=== PATIENT | female | born 1960 | race Caucasian/White ===

== ENCOUNTER 2017-04-30 23:01 | Emergency (ER) | payer SELFPAY ==
[2017-05-01] MEDS ORDERED: hydrOXYzine 25 MG TAB ONE (01:01)
== END 2017-05-01 01:08 | disposition home or self-care (01) ==
LOC: ERS 23:01
DX: F41.9 Anxiety disorder, unspecified (principal); F17.210 Nicotine dependence, cigarettes, uncomplicated; Z71.6 Tobacco abuse counseling
CPT/HCPCS: 99406

== ENCOUNTER 2020-02-18 16:27 | Inpatient (IN) | payer SELFPAY ==
[~2020-02-18 16:27] MED LIST: Iopamidol-370 76% 500 ML 1 ML ONE
[2020-02-18] MEDS ORDERED: Ondansetron PF 4 MG/2 ML Vial ONE (18:24)
[2020-02-18] MEDS ORDERED: Morphine 4 MG/ML VIAL ONE (18:24)
[2020-02-18 18:26] LABS: Hemoglobin 7.2 g/dL (12.0-16.0); Mean Corpuscular HGB CONC 28.3 g/dL (32.0-36.0); Mean Corpuscular Hemoglobin 17.7 pg (27.0-31.0); Mean Corpuscular Volume 62.7 fL (78.0-98.0); Mean Platelet Volume 6.3 fL (7.4-10.4); Platelet Count 388 thou/uL (130-400); RBC Distribution Width 18.9 % (11.5-14.5); Red Blood Cell (RBC) Count 4.07 mill/uL (4.20-5.40); White Blood Cell (WBC) Count 31.2 thou/uL (4.8-10.8)
[2020-02-18 18:40] LABS: Lactic Acid 2.4 mmol/L (0.5-2.2)
[2020-02-18 18:44] LABS: Anisocytosis SLIGHT = 6-15 cells (100X) (0-5/hpf); Band 22 % (5-11); Elliptocytes SLIGHT = 2-5 cells (100X) (0-1/hpf); Eosinophils 1 % (0-10); Hypochromia MODERATE=16-30 cells (100X) (0-5/hpf); Lymphocytes 4 % (21-51); MDiff Complete? YES; Metamyelocyte 2 % (0-0); Microcytosis SLIGHT = 6-15 cells (100X) (0-5/hpf); Monocytes 2 % (0-10); Neutrophil 69 % (42-75); Ovalocytes SLIGHT = 2-5 cells (100X) (0-1/hpf); Platelet Morphology Comment Appears Adequate; Poikilocytosis SLIGHT = 6-15 cells (100X) (0-5/hpf); Polychromasia SLIGHT = 2-3 cells (100X) (0-2/hpf); Reflex for Review?? YES; Schistocytes SLIGHT = 2-5 cells (100X) (0-1/hpf)
[2020-02-18 18:45] LABS: ALT (SGPT) 7 U/L (8-55); AST (SGOT) 11 U/L (5-34); Albumin 2.8 g/dL (3.4-4.8); Alkaline Phosphatase 200 U/L (40-110); Anion Gap 14 mmol/L (10-20); BUN (Urea Nitrogen) 9 mg/dL (9.8-20.1); Calc. Creatinine Clearance 0 mL/min (70-130); Calcium 8.4 mg/dL (7.8-10.44); Carbon Dioxide 25 mmol/L (23-31); Chloride 98 mmol/L (98-107); Estimated GFR-MDRD 51; Globulin 3.8 g/dL (2.4-3.5); Glucose 121 mg/dL (80-115); Protein, Total 6.6 g/dL (6.0-8.3); Sodium 134 mmol/L (136-145)
[2020-02-18 18:52] LABS: Potassium 2.9 mmol/L (3.5-5.1)
[2020-02-18] MEDS ORDERED: Piperacillin/Tazobactam 4.5 GM VIAL ONE (18:54)
--- NOTE | 2020-02-18 19:30 | CT ---
CT Abdomen Pelvis W Con: 02/18/2020 7:08 PM CLINICAL INFORMATION: Right inguinal pain and swelling with possible abscess COMPARISON: None. TECHNIQUE: Multiple contiguous axial images were obtained and a CT of the abdomen and pelvis with IV contrast. C oronal and sagittal reformats were performed. FINDINGS: Lower Chest: within normal limits. Abdomen: Liver: within normal limits. Bile Ducts: Normal caliber. Gallbladder: Calcified gallstone in the deep dependent gallbladder. Pancreas: within normal limits. Spleen: within normal limits. Adrenals: within normal limits. Kidneys: within normal limits. Pelvis: Reproductive Organs: A calcified uterine fibroid. Calcification is also seen in the left ovary. Ureters: within normal limits. Bladder: within normal limits. Peritoneum: No ascites or free air, no fluid collection. Bowel: Scattered diverticula in the colon. There is significant irregularity and increased soft tissu e density in the perianal soft tissues. This soft tissue density measures 12.2 cm in greatest dimension. Mesentery and Retroperitoneum: No enlarged retroperitoneal or mesenteric lymph nodes. There is an enl arged lymph node along the right pelvic sidewall measuring 2.0 cm in size. Vessels: Atherosclerotic calcifications. Abdominal Wall: There is stranding change seen in the lower abdominal wall extending into the right i nguinal region. There are mildly enlarged bilateral inguinal lymph nodes measuring up to 1.9 cm in size. No drainable well-circumscribed fluid collection is seen. Bones: Degenerative changes in the spine. IMPRESSION: 1. Increased soft tissue density in the perianal region is concerning for an anal malignancy. Correla te with physical examination. 2. Inflammatory change in the lower abdominal wall and right inguinal region without drainable fluid collection. 3. Cholelithiasis 4. Uterine fibroid 5. Right pelvic sidewall lymphadenopathy 6. Diverticulosis
[2020-02-18] MEDS ORDERED: Potassium Chloride 20 MEQ TAB ONE (20:02)
[2020-02-18 20:10] LABS: Bacteria/HPF 4+ HPF (None Seen); Bilirubin Negative (Negative); Blood, Urine 3+ (Negative); Clarity Extra Turbid (Clear); Glucose, Urine (Dipstick) Normal (Negative); Ketone, Urine Negative (Negative); Leukocyte 500 Leu/uL (Negative); Nitrite Negative (Negative); Protein, Urine (Dipstick) 70 mg/dL (Neg-Trace); RBC/HPF 21-50 HPF (0-3); Renal Epithelial 0-3 HPF (None Seen); Specific Gravity, Urine 1.016 (1.002-1.036); Transitional Epithelial 0-3 HPF (None Seen); Urobilinogen Normal mg/dL (Less than 2); WBC/HPF Greater than 50 HPF (0-3)
[2020-02-18] MEDS ORDERED: Ondansetron ODT 4 MG TAB PO PRN (22:12)
[2020-02-18] MEDS ORDERED: Acetaminophen 650 MG Suppository PR PRN (22:12)
[2020-02-18] MEDS ORDERED: Calcium Carbonate 500 MG ChewTAB PO PRN (22:12)
[2020-02-18] MEDS ORDERED: Acetaminophen 325 MG TAB PO PRN (22:12)
[2020-02-18] MEDS ORDERED: Ondansetron PF 4 MG/2 ML Vial IVP PRN (22:12)
--- NOTE | 2020-02-18 22:22 | PDOC.HHP ---
Hospitalist HPI - History of Present Illness r upper thigh swelling History of Present Illness: Case of an 59y/o female with pmhx of smoker who comes to hospital due to R upper thigh swelling. patient refers she was on her usual state of health until 3-4 days ago when she noted some swelling on her R pubic area. this swelling kept getting bigger and was associated to erythema increase in temp and pain. pain is 10/10 of intensity and non radiating. patient denies any fever chills n/v does report some foul smelling urine w/o dysuria Hospitalist ROS - Review of Systems All other systems reviewed; all pertinent +/- noted in HPI/Subj Hospitalist History - Past Surgical History Past Surgical History: reports: Tonsillectomy - Family History Family History: reports: cancer, diabetes mellitus, hyperlipidemia, hypertension - Social History Smoking Status: Current every day smoker Alcohol: reports: None Drugs: reports: none Living Situation: With Family - Exam General Appearance: NAD, awake alert Eye: PERRL, anicteric sclera ENT: normocephalic atraumatic, no oropharyngeal lesions, moist mucosa Neck: supple, symmetric, no JVD, no thyromegaly Heart: RRR, no murmur, no gallops, no rubs, normal peripheral pulses Respiratory: CTAB, no wheezes, no rales, no ronchi Gastrointestinal: soft, non-distended, normal bowel sounds, no palpable masses, no hepatomegaly Gastrointestinal - other findings: R pubic area w erythema increase in temp and tender to palpation Extremities: no cyanosis, no clubbing, no edema Skin: normal turgor, no lesions, no rashes Neurological: cranial nerve grossly intact, normal sensation to touch, no weakness Musculoskeletal: normal tone, normal strength, no muscle wasting Psychiatric: normal affect, normal behavior, A&O x 3 Hospitalist Results - Labs Result Diagrams: 02/18/20 18:01 02/18/20 18:01 Lab results: WBC 31.2 thou/uL (4.8-10.8) H 02/18/20 18: Hgb 7.2 g/dL (12.0-16.0) L 02/18/20 18: Hct 25.5 % (36.0-47.0) L 02/18/20 18: MCV 62.7 fL (78.0-98.0) L 02/18/20 18:01 Plt Count 388 thou/uL (130-400) 02/18/20 18:01 Band Neuts % (Manual) 22 % (5-11) H 02/18/20 18:01 Sodium 134 mmol/L (136-145) L 02/18/20 18:01 Potassium 2.9 mmol/L (3.5-5.1) L* 02/18/20 18: Chloride 98 mmol/L (98-107) 02/18/20 18:01 Carbon Dioxide 25 mmol/L (23-31) 02/18/20 18:01 BUN 9 mg/dL (9.8-20.1) L 02/18/20 18:01 Creatinine 1.09 mg/dL (0.6-1.1) 02/18/20 18:01 Glucose 121 mg/dL (80-115) H 02/18/20 18:01 Lactic Acid 2.4 mmol/L (0.5-2.2) H 02/18/20 18: Calcium 8.4 mg/dL (7.8-10.44) 02/18/20 18:01 Total Bilirubin 1.0 mg/dL (0.2-1.2) 02/18/20 18:01 AST 11 U/L (5-34) 02/18/20 18:01 ALT 7 U/L (8-55) L 02/18/20 18:01 Alkaline Phosphatase 200 U/L (40-110) H 02/18/20 18:01 Serum Total Protein 6.6 g/dL (6.0-8.3) 02/18/20 18: Albumin 2.8 g/dL (3.4-4.8) L 02/18/20 18:01 Urine Ketones Negative mg/dL (Negative) 02/18/20 19:50 Urine Blood 3+ (Negative) A 02/18/20 19:50 Urine Nitrite Negative (Negative) 02/18/20 19:50 Ur Leukocyte Esterase 500 Kamala/uL (Negative) A 02/18/20 19:50 Urine RBC 21-50 HPF (0-3) A 02/18/20 19:50 Urine WBC Greater than 50 HPF (0-3) A 02/18/20 19:50 Ur Squamous Epith Cells 4-6 HPF (0-3) A 02/18/20 19:50 Urine Bacteria 4+ HPF (None Seen) A 02/18/20 19:50 Hospitalist H&P A/P - Problem (1) Sepsis Code(s): A41.9 - SEPSIS, UNSPECIFIED ORGANISM Status: Acute (2) Cellulitis Code(s): L03.90 - CELLULITIS, UNSPECIFIED Status: Acute (3) Rectal mass Code(s): K62.89 - OTHER SPECIFIED DISEASES OF ANUS AND RECTUM Status: Acute (4) Hypokalemia Code(s): E87.6 - HYPOKALEMIA Status: Acute (5) UTI (urinary tract infection) Status: Acute (6) Smoker Code(s): F17.200 - NICOTINE DEPENDENCE, UNSPECIFIED, UNCOMPLICATED Status: Acute (7) Anemia Code(s): D64.9 - ANEMIA, UNSPECIFIED Status: Acute - Plan Plan: Case of an 59y/o female with the stated pmhx who presents with sepsis secondary to cellulitis and uti, with an incidental mass in rectal area sepsis secondary to uti / cellulitis - elevated wbc 30k, elevated LA 2.8 with a soft tissue swelling in upper thigh and u/a consistent with uti - sepsis bundles started at the ed, ivfs given, cultures taken and broad abx initiated - will continue with ancef, no purulent secretions noted. should covered both cellulits and uti - f/u cultures - f/u LA rectal mass - visual mass at rectum + abd ct suspicious for malignancy - oncology consulted - gen surgeon consulted hypokalemia - replace - check mg smoker - advised to quit - nicotine patch offered, pt refused anemia - hg 7.2 with decreased mcv - will check iron panel - likely related to rectal mass - fecal occult blood - start iron replacement if confirmed - transfuse if below 7
[2020-02-18] MEDS: Sodium Chloride 0.9% 1,000 ML IV SCH (23:50)
[2020-02-19 00:23] VITALS: BMI 35.1
[2020-02-19] MEDS: HYDROcodone/Acetaminophen 5/325 mg Tablet PO PRN ×2 (05:19→15:10)
[2020-02-19 07:39] LABS: Iron 9 ug/dL (50-170); Iron Binding Capacity, Total 235 mcg/dL (265-497)
[2020-02-19 07:41] LABS: ALT (SGPT) 7 U/L (8-55); AST (SGOT) 8 U/L (5-34); Albumin 2.2 g/dL (3.4-4.8); Alkaline Phosphatase 160 U/L (40-110); Anion Gap 12 mmol/L (10-20); BUN (Urea Nitrogen) 9 mg/dL (9.8-20.1); Bilirubin, Total 0.5 mg/dL (0.2-1.2); Calc. Creatinine Clearance 106 mL/min (70-130); Calcium 7.6 mg/dL (7.8-10.44); Carbon Dioxide 24 mmol/L (23-31); Chloride 105 mmol/L (98-107); Estimated GFR-MDRD 62; Glucose 112 mg/dL (80-115); Iron 9 ug/dL (50-170); Iron Binding Capacity, Total 238 mcg/dL (265-497); Potassium 3.2 mmol/L (3.5-5.1); Protein, Total 5.2 g/dL (6.0-8.3); Sodium 138 mmol/L (136-145)
[2020-02-19 07:50] LABS: Mean Corpuscular HGB CONC 28.4 g/dL (32.0-36.0); Mean Corpuscular Hemoglobin 18.4 pg (27.0-31.0); Mean Corpuscular Volume 64.7 fL (78.0-98.0); Mean Platelet Volume 10.8 fL (7.4-10.4); Platelet Count 312 thou/uL (130-400); RBC Distribution Width 18.6 % (11.5-14.5); Red Blood Cell (RBC) Count 3.23 mill/uL (4.20-5.40); White Blood Cell (WBC) Count 20.5 thou/uL (4.8-10.8)
[2020-02-19] MEDS: ceFAZolin 1 GM/D5W 1 GM in Premix Bag 1 BAG IVPB SCH ×4 (08:37→23:31)
[2020-02-19 08:59] LABS: Anisocytosis SLIGHT = 6-15 cells (100X) (0-5/hpf); Band 3 % (5-11); Elliptocytes SLIGHT = 2-5 cells (100X) (0-1/hpf); Hypochromia MODERATE=16-30 cells (100X) (0-5/hpf); Large Platelets SLIGHT; Lymphocytes 4 % (21-51); MDiff Complete? YES; Neutrophil 93 % (42-75); Platelet Morphology Comment Appears Adequate
[2020-02-19] MEDS ORDERED: Enoxaparin Sodium 40 MG/0.4 ML SYRINGE SC SCH (09:00)
--- NOTE | 2020-02-19 09:20 | CON ---
DATE OF CONSULTATION: 02/19/2020 CHIEF COMPLAINT: Anal mass. HISTORY OF PRESENT ILLNESS: This is a 59-year-old female with a history of chronic pain in her backside with open wound. She states this has been going on for months. She has occasional bleeding. She has difficulty passing her stools. She does stool softeners and that helps. She presents now with swelling and pain to the right groin and was found to have cellulitis. CT scan reveals anal mass and phlegmon type changes in the right groin without drainable abscess. The patient is unsure if she has had previous colonoscopy. PAST MEDICAL HISTORY: She denies. PAST SURGICAL HISTORY: Tonsillectomy. MEDICINES: None. ALLERGIES: NO KNOWN DRUG ALLERGIES. SOCIAL HISTORY: She smokes. No alcohol or other drugs. REVIEW OF SYSTEMS: Ten-system review of systems is otherwise negative unless described above. PHYSICAL EXAMINATION: VITAL SIGNS: Blood pressure 100/64, pulse 87, respirations 18, she is afebrile. CHEST: Clear. HEART: Regular rate. ABDOMEN: Soft. EXTREMITIES: There is swelling and tenderness in the right groin. There is some erythema of the scan. There is no fluctuance. Left groin within normal limits. : Examination of her perineum reveals large ulceration circumferential around the anus and around the labia majora, however, seems to be coming from the anal area. Anorectal exam is not done due to severe pain. 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 She does have bilateral lymphadenopathy. This has been present for a while and she has been trying to live with this. PLAN: She will almost certainly need biopsy to confirm and then [facility] for her chemo and radiation. We will discuss with GI. She would need a colonoscopy as well to clear her rectum and the rest of her colon. Biopsy could be performed at the same time stat. If she does in fact have a more complete obstruction, she could have diverting loop colostomy palliatively to allow for her chemoradiation to be performed with less symptoms. Job ID: [id number]
[2020-02-19] MEDS: Sodium Chloride 0.9% 1,000 ML IV SCH ×2 (15:09)
--- NOTE | 2020-02-19 19:06 | PDOC.HOSPP ---
- Subjective Encounter Date: 02/19/20 Encounter Time: 18:55 Subjective: f/u for sepsis/rectal mass with cellulitis/UTI with strep spp receiving Ancef currently. Nursing reports Hgb 6.0 this am. Awaiting final COVID results currently. - Objective Vital Signs & Weight: Vital Signs (12 hours) Temp Pulse Resp BP BP Pulse Ox 02/19/20 16:00 98.3 F 91 18 95/59 L 94 L 02/19/20 12:00 98.0 F 96 18 100/65 93 L 02/19/20 11:21 98.0 F 96 18 100/65 93 L 02/19/20 07:56 98.4 F 87 18 100/64 93 L Weight Weight 231 lb I&O: 02/18/20 02/19/20 02/20/20 06:59 06:59 06:59 Intake Total 490 1510 Balance 490 1510 Result Diagrams: 02/19/20 06:43 02/19/20 06:43 Additional Labs: Microbiology 02/18/20 19:50 Urine voided Urine Culture - Preliminary Beta-hemolytic strep group A 02/18/20 18:05 Venous blood - Right Arm Blood Culture - Preliminary Specimen has been received and culture in progress. No Growth to date. 02/18/20 18:01 Venous blood - Left Arm Blood Culture - Preliminary Specimen has been received and culture in progress. No Growth to date. Laboratory Tests 02/18/20 02/18/20 02/18/20 18:01 18:01 18:01 WBC 31.2 H Hgb 7.2 L MCV 62.7 L Band Neuts % (Manual) 22 H Potassium 2.9 L* Lactic Acid 2.4 H Magnesium Iron TIBC 02/19/20 02/19/20 06:43 06:43 WBC Hgb MCV Band Neuts % (Manual) 3 L Potassium Lactic Acid Magnesium 2.0 Iron 9 L TIBC 238 L Radiology Reviewed by me: Yes (CT abd/pel - R pelvic/inguinal inflammatory changes/adenopathy) Hospitalist ROS - Medication Medications: Active Medications Generic Name Dose Route Start Last Admin Trade Name Freq PRN Reason Stop Dose Admin Hydrocodone Bitart/Acetaminophen 1 tab 02/18/20 22:12 02/19/20 15:10 Hydrocodone/Acetaminophen 5/325 Mg Tablet PO 1 tab Q4H PRN Administration Moderate Pain (4-6) Sodium Chloride 1,000 mls @ 70 mls/hr 02/18/20 22:15 02/19/20 15:09 Normal Saline 0.9% IV 1,000 mls .[id number] DOMINIQUE Administration Cefazolin Sodium/Dextrose 1 gm 50 mls @ 100 mls/hr 02/18/20 23:59 02/19/20 17:12 / Device IVPB 50 mls 0800,1600,2359 DOMINIQUE Administration - Exam General Appearance: NAD, awake alert Eye: PERRL, anicteric sclera ENT: normocephalic atraumatic, no oropharyngeal lesions Neck: supple, symmetric, no JVD, no thyromegaly Heart: RRR, no gallops, no rubs, normal peripheral pulses Heart - other findings: S1, S2 Respiratory: no rales, no ronchi, no tachypnea, wheezes Gastrointestinal: soft, non-tender, non-distended, normal bowel sounds, no hepatomegaly Extremities: no cyanosis, no clubbing Skin - other findings: large ulcerating mass in rectum/buttocks with erythema Neurological: cranial nerve grossly intact, no new deficit Musculoskeletal: normal tone, generalized weakness Psychiatric: normal affect, A&O x 3 Hosp A/P (1) Sepsis Code(s): A41.9 - SEPSIS, UNSPECIFIED ORGANISM Status: Acute Plan: Secondary to large ulcerated rectal mass/cellulitis/UTI, continue Ancef, IVF's (2) Rectal mass Code(s): K62.89 - OTHER SPECIFIED DISEASES OF ANUS AND RECTUM Status: Acute Plan: Suspicion for malignancy, await bx, Gen surgery/Medical oncology assistance appreciated (3) UTI (urinary tract infection) Status: Acute Plan: Strep spp isolated, await final ID, continue Ancef, IVF's (4) Tobacco abuse Code(s): Z72.0 - TOBACCO USE Status: Chronic Plan: Smoking cessation resources (5) Anemia Code(s): D64.9 - ANEMIA, UNSPECIFIED Status: Chronic Plan: Suspect due to chronic disease/malignancy and component of iron-deficiency, transfuse 1u PRBC's today, IV Iron transfusion today, serial H/H (6) Hypokalemia Code(s): E87.6 - HYPOKALEMIA Status: Acute Plan: KCL supplementation, serial K+ monitoring - Plan continue antibiotics, 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
[2020-02-19] MEDS ORDERED: Iron, Sodium Ferric Gluconate 250 MG in Sodium Chloride 0.9% 100 ML IVPB SCH (20:00)
[2020-02-19 20:50] LABS: SARS-CoV-2 MS2 Positive; SARS-CoV-2 N Gene Negative; SARS-CoV-2 S Gene Negative; SARS-CoV-2 by NAA Not Detected (NotDetected); SARS-CoV-2 orf1ab Negative
[2020-02-20] MEDS: Sodium Chloride 0.9% 1,000 ML IV SCH ×3 (03:57→17:28)
--- NOTE | 2020-02-20 04:40 | CON ---
DATE OF CONSULTATION: HISTORY OF PRESENT ILLNESS: This is a 59-year-old female, who apparently has been having problem in the anal area for about two years. It has been gradually becoming worse and now she has developed pain and swelling in the right upper thigh, both inguinal areas, and suprapubic abdominal wall. She rates her pain as level 10. The patient lives by herself. CURRENT MEDICATIONS: Cefazolin, Zofran, and Carbon. PERSONAL, FAMILY, AND SOCIAL HISTORY: The patient is not aware of any cancer history in the family. She lives by herself. She has children, but they do not live with her. REVIEW OF SYSTEMS: As above. PHYSICAL EXAMINATION: GENERAL: The patient appears chronically ill. She is moderately obese at 231 pounds, height 5 feet 8 inches, body surface area 2.24 m2, and BMI 35.1 kg/m2. HEENT: Unremarkable. There was no adenopathy in cervical area. Inguinal area could not be examined because of extreme tenderness. CHEST: Clear to percussion and auscultation. HEART: S1, S2. ABDOMEN: Soft. No obvious hepatosplenomegaly. EXTREMITIES: Without pedal edema. There is considerable swelling and tenderness to the right inguinal area and erythema in both inguinal areas and suprapubic abdominal wall. Examination of anorectal area and perineum shows a very large ulcerated area around the anus and labia majora. LABORATORY DATA: CBC showed WBC 20,500, hemoglobin 6 g, platelet count 312,000, and MCV 64.7. Differential shows 93% neutrophils, 3% bands, and 4% lymphocytes. Chemistry profile shows hypokalemia. Her creatinine is 0.92, calcium 7.6, serum iron 9 with TIBC of 238, ferritin pending. ALT and AST are normal. Alkaline phosphatase is elevated at 160 with albumin 2.2. IMAGING DATA: CT scan of abdomen and pelvis showed normal liver and spleen. Kidneys and ureters are normal. There is a significant irregularity and increased soft tissue density in the perianal area measuring 12.2 cm. There is a 2 cm lymph node in the right pelvic sidewall and mildly enlarged bilateral inguinal lymph nodes measuring up to 1.9 cm. There are stranding changes in the lower abdominal wall. ASSESSMENT AND RECOMMENDATION: This patient seems to have a locally advanced anorectal malignancy with likely metastasis to pelvic lymph node and to bilateral inguinal lymph nodes. However, the inguinal lymph nodes, which on CT scan measured 1.9 cm, could also be inflammatory in nature. She does have extremely locally advanced disease. The patient was earlier seen by Dr. Coello, who has recommended a colonoscopy and he felt a biopsy could be done at the time of colonoscopy. I have ordered chest x-ray and bone scan to complete staging. Bone scan was ordered because her alkaline phosphatase is elevated. She needs to be transfused as her hemoglobin is extremely low. Thanks very much for allowing me to participate in this patient's care. She will be followed by Medical Oncology Service. Job ID: [id number]
[2020-02-20] MEDS: HYDROcodone/Acetaminophen 5/325 mg Tablet PO PRN ×3 (06:13→22:27)
[2020-02-20 06:24] LABS: #Eosinphils 0.3 thou/uL (0.0-0.7); #Lymphocytes 1.4 thou/uL (1.20-3.40); #Monocytes 0.8 thou/uL (0.11-0.59); #Neutrophils 15.2 thou/uL (1.40-6.50); %Basophils 0.2 % (0.0-1.0); %Eosinophils 1.7 % (0.0-10.0); %Lymphocytes 7.9 % (21.0-51.0); %Monocytes 4.6 % (0.0-10.0); %Neutrophils 85.7 % (42.0-75.0); Hemoglobin 6.7 g/dL (12.0-16.0); Mean Corpuscular HGB CONC 29.2 g/dL (32.0-36.0); Mean Corpuscular Hemoglobin 19.6 pg (27.0-31.0); Mean Corpuscular Volume 67.2 fL (78.0-98.0); Mean Platelet Volume 10.4 fL (7.4-10.4); Platelet Count 320 thou/uL (130-400); Red Blood Cell (RBC) Count 3.43 mill/uL (4.20-5.40); White Blood Cell (WBC) Count 17.7 thou/uL (4.8-10.8)
[2020-02-20 06:42] LABS: ALT (SGPT) 9 U/L (8-55); AST (SGOT) 13 U/L (5-34); Albumin 2.3 g/dL (3.4-4.8); Alkaline Phosphatase 174 U/L (40-110); Anion Gap 11 mmol/L (10-20); BUN (Urea Nitrogen) 7 mg/dL (9.8-20.1); Bilirubin, Total 0.8 mg/dL (0.2-1.2); Calc. Creatinine Clearance 115 mL/min (70-130); Calcium 7.7 mg/dL (7.8-10.44); Carbon Dioxide 25 mmol/L (23-31); Chloride 105 mmol/L (98-107); Estimated GFR-MDRD 68; Glucose 105 mg/dL (80-115); Protein, Total 5.3 g/dL (6.0-8.3); Sodium 138 mmol/L (136-145)
--- NOTE | 2020-02-20 08:01 | PRG ---
DATE OF SERVICE: 02/20/2020 SUBJECTIVE: Ms. Drew has no complaints this morning. Still complaining of perianal pain. She is afebrile. Vital signs are stable. Appreciate Dr. Burns consultation. ASSESSMENT: Anorectal malignancy. I suspect anal squamous cell. PLAN: Exam under anesthesia tomorrow with biopsy. Job ID: [id number]
[2020-02-20] MEDS: ceFAZolin 1 GM/D5W 1 GM in Premix Bag 1 BAG IVPB SCH ×3 (08:35→23:01)
--- NOTE | 2020-02-20 10:12 | RAD ---
EXAM: Chest PA and lateral: HISTORY: Shortness of breath COMPARISON: 12/12/2009 FINDINGS: Heart: Normal cardiac silhouette Aorta: Unremarkable Pulmonary vessels: Normal Costophrenic angles: Costophrenic angles are clear. Lungs: Scattered interstitial opacities. Pneumothorax: No pneumothorax Osseous structures: Old posterior right rib fracture. IMPRESSION: Scattered interstitial opacities possibly due to edema or infiltrate. Continued surveillance is recom mended.
--- NOTE | 2020-02-20 13:19 | PDOC.HOSPP ---
- Subjective Encounter Date: 02/20/20 Encounter Time: 13:15 Subjective: f/u for rectal mass suspected malignant with associated cellulitis/inflammatory changes receiving Cefazolin. Also s/p 2u PRBC's and IV Iron infusion. - Objective Vital Signs & Weight: Vital Signs (12 hours) Temp Pulse Pulse Resp BP BP Pulse Ox 02/20/20 10:48 98 F 77 14 102/65 94 L 02/20/20 08:00 98.0 F 83 16 114/72 96 02/20/20 03:00 98.2 F 86 18 108/60 96 Weight Weight 231 lb I&O: 02/19/20 02/20/20 02/21/20 06:59 06:59 06:59 Intake Total 490 1860 0 Balance 490 1860 0 Result Diagrams: 02/20/20 05:37 02/20/20 05:37 Additional Labs: Microbiology 02/18/20 19:50 Urine voided Urine Culture - Preliminary Beta-hemolytic strep group A 02/18/20 18:05 Venous blood - Right Arm Blood Culture - Preliminary Specimen has been received and culture in progress. No Growth to date. 02/18/20 18:01 Venous blood - Left Arm Blood Culture - Preliminary Specimen has been received and culture in progress. No Growth to date. Laboratory Tests 02/18/20 02/18/20 02/18/20 18:01 18:01 18:01 WBC 31.2 H Hgb 7.2 L MCV 62.7 L Band Neuts % (Manual) 22 H Potassium 2.9 L* Lactic Acid 2.4 H Magnesium Iron TIBC Carcinoembryonic Ag SARS-CoV-2 (PCR) 02/18/20 02/19/20 02/19/20 23:05 06:43 06:43 WBC 20.5 H Hgb 6.0 L MCV Band Neuts % (Manual) 3 L Potassium 3.2 L Lactic Acid Magnesium 2.0 Iron 9 L TIBC 238 L Carcinoembryonic Ag SARS-CoV-2 (PCR) Not Detected 02/20/20 05:37 WBC Hgb MCV Band Neuts % (Manual) Potassium Lactic Acid Magnesium Iron TIBC Carcinoembryonic Ag 14.94 H SARS-CoV-2 (PCR) Radiology Reviewed by me: Yes (PCXR - scattered infiltrates/chronic changes) Hospitalist ROS - Medication Medications: Active Medications Generic Name Dose Route Start Last Admin Trade Name Freq PRN Reason Stop Dose Admin Acetaminophen 650 mg 02/18/20 22:12 02/19/20 19:39 Acetaminophen 325 Mg Tab PO 650 mg Q4H PRN Administration Headache/Fever/Mild Pain (1-3) Hydrocodone Bitart/Acetaminophen 1 tab 02/18/20 22:12 02/20/20 06:13 Hydrocodone/Acetaminophen 5/325 Mg Tablet PO 1 tab Q4H PRN Administration Moderate Pain (4-6) Sodium Chloride 1,000 mls @ 70 mls/hr 02/18/20 22:15 02/20/20 03:57 Normal Saline 0.9% IV Not Given .[id number] DOMINIQUE Cefazolin Sodium/Dextrose 1 gm 50 mls @ 100 mls/hr 02/18/20 23:59 02/20/20 08:35 / Device IVPB 50 mls 0800,1600,2359 DOMINIQUE Administration Sodium Chloride 10 ml 02/19/20 21:00 02/20/20 08:35 Flush - Normal Saline 10 Ml Syringe IVF Not Given Q12HR DOMINIQUE - Exam General Appearance: NAD, awake alert Eye: PERRL, anicteric sclera ENT: normocephalic atraumatic, no oropharyngeal lesions Neck: supple, symmetric, no JVD, no thyromegaly Heart: RRR, no gallops, no rubs, normal peripheral pulses Heart - other findings: S1, S2 Respiratory: CTAB, rhonchi, wheezes Respiratory - other findings: diminished in bases Gastrointestinal: soft, non-distended, normal bowel sounds, no palpable masses Extremities: no cyanosis, no clubbing, no edema Skin: normal turgor Skin - other findings: rectal mass with large ulceration/necrosis/erythema Neurological: cranial nerve grossly intact, no new deficit Musculoskeletal: normal tone, normal strength, no muscle wasting Psychiatric: normal affect, A&O x 3 Hosp A/P (1) Sepsis Code(s): A41.9 - SEPSIS, UNSPECIFIED ORGANISM Status: Acute Plan: Resolving, continue IV Ancef (2) Rectal mass Code(s): K62.89 - OTHER SPECIFIED DISEASES OF ANUS AND RECTUM Status: Acute Plan: Plan for EUA and biopsy 02/21/20 (3) UTI (urinary tract infection) Status: Acute Plan: Strep A spp, continue Ancef (4) Tobacco abuse Code(s): Z72.0 - TOBACCO USE Status: Chronic (5) Anemia Code(s): D64.9 - ANEMIA, UNSPECIFIED Status: Chronic Plan: s/p 2u PRBC's, s/p IV Iron infusion, serial H/H, likely due to malignancy and poor po intake (6) Hypokalemia Code(s): E87.6 - HYPOKALEMIA Status: Acute Plan: KCL 40meq BID, serial K+ monitoring - 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
[2020-02-20] MEDS ORDERED: Potassium Chloride 20 MEQ TAB PO SCH (13:45)
[2020-02-20] MEDS: Potassium Chloride 20 MEQ TAB PO SCH (17:27)
[2020-02-20 21:07] LABS: Hemoglobin 7.7 g/dL (12.0-16.0)
[2020-02-21] MEDS: Morphine 4 MG/ML VIAL SLOW IVP PRN ×3 (01:22→20:55)
[2020-02-21] MEDS: Sodium Chloride 0.9% 1,000 ML IV SCH ×2 (04:54→20:59)
[2020-02-21 06:41] LABS: Hemoglobin 8.1 g/dL (12.0-16.0); Mean Corpuscular HGB CONC 31.3 g/dL (32.0-36.0); Mean Corpuscular Hemoglobin 21.5 pg (27.0-31.0); Mean Corpuscular Volume 68.7 fL (78.0-98.0); Mean Platelet Volume 10.9 fL (7.4-10.4); Platelet Count 326 thou/uL (130-400); RBC Distribution Width 22.2 % (11.5-14.5); Red Blood Cell (RBC) Count 3.77 mill/uL (4.20-5.40); White Blood Cell (WBC) Count 18.3 thou/uL (4.8-10.8)
[2020-02-21 06:58] LABS: ALT (SGPT) 10 U/L (8-55); AST (SGOT) 18 U/L (5-34); Albumin 2.4 g/dL (3.4-4.8); Alkaline Phosphatase 192 U/L (40-110); Anion Gap 12 mmol/L (10-20); BUN (Urea Nitrogen) 4 mg/dL (9.8-20.1); Bilirubin, Total 0.5 mg/dL (0.2-1.2); Calc. Creatinine Clearance 124 mL/min (70-130); Carbon Dioxide 24 mmol/L (23-31); Chloride 108 mmol/L (98-107); Estimated GFR-MDRD 74; Globulin 3.3 g/dL (2.4-3.5); Glucose 93 mg/dL (80-115); Potassium 3.9 mmol/L (3.5-5.1); Protein, Total 5.7 g/dL (6.0-8.3); Sodium 140 mmol/L (136-145)
[2020-02-21 08:12] LABS: Band 10 % (5-11); Elliptocytes SLIGHT = 2-5 cells (100X) (0-1/hpf); Eosinophils 1 % (0-10); Hypochromia MODERATE=16-30 cells (100X) (0-5/hpf); Lymphocytes 12 % (21-51); MDiff Complete? YES; Metamyelocyte 1 % (0-0); Microcytosis MODERATE=15-30 cells (100X) (0-5/hpf); Monocytes 2 % (0-10); Myelocyte 1 % (0-0); Neutrophil 72 % (42-75); Nucleated RBC 2 % (0); Ovalocytes SLIGHT = 2-5 cells (100X) (0-1/hpf); Platelet Morphology Comment Appears Adequate; Polychromasia MODERATE = 3-4 cells (100X) (0-2/hpf); Reactive Lymphocytes 1 % (0-10)
[2020-02-21] MEDS: ceFAZolin 1 GM/D5W 1 GM in Premix Bag 1 BAG IVPB SCH ×3 (08:23→23:45)
[2020-02-21] MEDS: Potassium Chloride 20 MEQ TAB PO SCH ×2 (08:24→16:47)
--- NOTE | 2020-02-21 12:47 | NM ---
NM Bone Scan STANDARD History: Cancer staging Comparison: Abdomen pelvis CT February 2020 Findings: 3 hour delayed whole body imaging was performed after the intravenous ministration of 33 mC i technetium 99m MDP. Adequate osseous uptake of radiotracer. Urinary bladder is visualized as well as the kidneys. No abnormal osseous radiotracer uptake to suggest metastatic disease. Mild degenerative disease of the right knee. Urine contamination is noted. Impression: No evidence for osseous metastatic disease.
--- NOTE | 2020-02-21 13:14 | PDOC.HOSPP ---
- Subjective Encounter Date: 02/21/20 Encounter Time: 13:05 Subjective: f/u for suspected anorectal carcinoma awaiting formal biopsy today. Completed bone scan this am with negative evidence for metastasis. - Objective Vital Signs & Weight: Vital Signs (12 hours) Temp Pulse Resp BP BP Pulse Ox 02/21/20 11:41 98.1 F 77 14 124/62 94 L 02/21/20 08:25 93 L 02/21/20 07:50 97.5 F L 69 14 111/71 92 L 02/21/20 04:00 97.7 F 80 18 115/70 96 Weight Weight 231 lb I&O: 02/20/20 02/21/20 02/22/20 06:59 06:59 06:59 Intake Total 1860 1050 Balance 1860 1050 Result Diagrams: 02/21/20 06:16 02/21/20 06:16 Additional Labs: Microbiology 02/18/20 19:50 Urine voided Urine Culture - Preliminary Beta-hemolytic strep group A 02/18/20 18:05 Venous blood - Right Arm Blood Culture - Preliminary Specimen has been received and culture in progress. No Growth to date. 02/18/20 18:01 Venous blood - Left Arm Blood Culture - Preliminary Specimen has been received and culture in progress. No Growth to date. Laboratory Tests 02/18/20 02/18/20 02/18/20 18:01 18:01 18:01 WBC 31.2 H Hgb 7.2 L MCV 62.7 L Band Neuts % (Manual) 22 H Potassium 2.9 L* Lactic Acid 2.4 H Magnesium Iron TIBC Carcinoembryonic Ag SARS-CoV-2 (PCR) 02/18/20 02/19/20 02/19/20 23:05 06:43 06:43 WBC 20.5 H Hgb 6.0 L MCV Band Neuts % (Manual) 3 L Potassium 3.2 L Lactic Acid Magnesium 2.0 Iron 9 L TIBC 238 L Carcinoembryonic Ag SARS-CoV-2 (PCR) Not Detected 02/20/20 05:37 WBC Hgb MCV Band Neuts % (Manual) Potassium Lactic Acid Magnesium Iron TIBC Carcinoembryonic Ag 14.94 H SARS-CoV-2 (PCR) Radiology Reviewed by me: Yes (Bone scan - neg for metastatic process) Hospitalist ROS - Medication Medications: Active Medications Generic Name Dose Route Start Last Admin Trade Name Eddieq PRN Reason Stop Dose Admin Acetaminophen 650 mg 02/18/20 22:12 02/19/20 19:39 Acetaminophen 325 Mg Tab PO 650 mg Q4H PRN Administration Headache/Fever/Mild Pain (1-3) Hydrocodone Bitart/Acetaminophen 1 tab 02/18/20 22:12 02/20/20 22:27 Hydrocodone/Acetaminophen 5/325 Mg Tablet PO 1 tab Q4H PRN Administration Moderate Pain (4-6) Sodium Chloride 1,000 mls @ 70 mls/hr 02/18/20 22:15 02/21/20 04:54 Normal Saline 0.9% IV 1,000 mls .[id number] DOMINIQUE Administration Cefazolin Sodium/Dextrose 1 gm 50 mls @ 100 mls/hr 02/18/20 23:59 02/21/20 08:23 / Device IVPB 50 mls 0800,1600,2359 DOMINIQUE Administration Morphine Sulfate 4 mg 02/20/20 16:27 02/21/20 04:54 Morphine 4 Mg/Ml Vial SLOW IVP 4 mg Q4H PRN Administration PAIN 4-6 Potassium Chloride 40 meq 02/20/20 17:00 02/21/20 08:24 Potassium Chloride 20 Meq Tab PO 40 meq BID-WM DOMINIQUE Administration Sodium Chloride 10 ml 02/19/20 21:00 02/21/20 08:24 Flush - Normal Saline 10 Ml Syringe IVF Not Given Q12HR DOMINIQUE - Exam General Appearance: NAD, awake alert Eye: PERRL, anicteric sclera ENT: normocephalic atraumatic, no oropharyngeal lesions Neck: supple, symmetric, no JVD, no thyromegaly, no lymphadenopathy Heart: RRR, no gallops, no rubs, normal peripheral pulses Heart - other findings: S1, S2 Respiratory: normal chest expansion, no tachypnea Respiratory - other findings: scattered rhonchi, diminished in bases Gastrointestinal: soft, non-tender, non-distended, normal bowel sounds, no palpable masses Gastrointestinal - other findings: obese Extremities: no cyanosis, no clubbing, no edema Skin: normal turgor Neurological: cranial nerve grossly intact, no new deficit Musculoskeletal: normal tone, generalized weakness Psychiatric: normal affect, A&O x 3 Hosp A/P (1) Sepsis Code(s): A41.9 - SEPSIS, UNSPECIFIED ORGANISM Status: Acute Plan: Suspected due to rectal cellulitic process, continue Ancef/IVF's (2) Rectal mass Code(s): K62.89 - OTHER SPECIFIED DISEASES OF ANUS AND RECTUM Status: Acute Plan: Await EUA with biopsy today (3) UTI (urinary tract infection) Status: Acute Plan: Continue Ancef, Strep A noted on Ucx (4) Tobacco abuse Code(s): Z72.0 - TOBACCO USE Status: Chronic (5) Anemia Code(s): D64.9 - ANEMIA, UNSPECIFIED Status: Chronic Plan: s/p 2u PRBC's and IV Iron infusion, serial H/H monitoring (6) Hypokalemia Code(s): E87.6 - HYPOKALEMIA Status: Acute Plan: Improved, continue KCL supplementation - Plan continue antibiotics, PT/OT, manager social responsibility, respiratory therapy, DVT proph w/SCDs Continue Ancef IV Pain control prn Continue Restoril 15mg HS COVID negative s/p IV Iron infusion s/p 2u PRBC's Plan for EUA with biopsy 02/21/20 AM lab: CMP, CBC
[2020-02-21] MEDS ORDERED: Polyethylene Glycol 3350 17 GM Packet PO PRN (15:25)
--- NOTE | 2020-02-21 15:28 | PDOC.MOPN ---
Interval History: pain ok, no BM since arrival - Vital Signs Vital Signs: Vital Signs (12 hours) Temp Pulse Resp BP BP Pulse Ox 02/21/20 11:41 98.1 F 77 14 124/62 94 L 02/21/20 08:25 93 L 02/21/20 07:50 97.5 F L 69 14 111/71 92 L 02/21/20 04:00 97.7 F 80 18 115/70 96 Weight Weight 231 lb - Physical Exam General: Alert, Oriented x3, No acute distress HEENT: Atraumatic, PERRLA, EOMI, Mucous membr. moist/pink Lungs: Clear to auscultation Cardiovascular: Regular rate Abdomen: Normal bowel sounds, Other (anal mass) Neurological: Normal speech Psych/Mental Status: Mental status NL - Labs Result Diagrams: 02/21/20 06:16 02/21/20 06:16 Lab results: Laboratory Results - last 24 hr 02/21/20 06:16: WBC 18.3 H, RBC 3.77 L, Hgb 8.1 L, Hct 25.9 L, MCV 68.7 L, MCH 21.5 L, MCHC 31.3 L, RDW 22.2 H, Plt Count 326, MPV 10.9 H, Neutrophils % (Manu al) 72, Band Neuts % (Manual) 10, Lymphocytes % (Manual) 12 L, Reactive Lymphs % 1, Monocytes % (Manual) 2, Eosinophils % (Manual) 1, Metamyelocytes % (Man) 1 H, Myelocytes % 1 H, Lymphocytes # Not Reportable, Nucleated RBCs # (Man) 2 H, Hypochromia MODERATE=16-30 cells H, Plt Morphology Comment Appears Adequate, Polychromasia MODERATE = 3-4 cells H, Microcytosis MODERATE=15-30 cells H, Ovalocytes SLIGHT = 2-5 cells, Elliptocytes SLIGHT = 2-5 cells 02/21/20 06:16: Sodium 140, Potassium 3.9, Chloride 108 H, Carbon Dioxide 24, Anion Gap 12, BUN 4 L, Creatinine 0.79, Estimated GFR (MDRD) 74, Glucose 93, Calcium 8.0, Total Bilirubin 0.5, AST 18, ALT 10, Alkaline Phosphatase 192 H, Serum Total Protein 5.7 L, Albumin 2.4 L, Globulin 3.3, Albumin/Globulin Ratio 0.7 L 02/20/20 20:31: Hgb 7.7 L, Hct 25.7 L 02/18/20 18:01: Smear Path Review Status: lab reviewed by me A/P - Problem (1) Rectal mass Current Visit: Yes Code(s): K62.89 - OTHER SPECIFIED DISEASES OF ANUS AND RECTUM Status: Acute - Plan Plan: 1. biopsy planned for tomorrow 2. add stool softener and miralax to keep stool soft 3. continue pain meds prn
[2020-02-21] MEDS: Docusate 100 MG CAP PO SCH (20:57)
[2020-02-22] MEDS: HYDROcodone/Acetaminophen 5/325 mg Tablet PO PRN ×2 (01:57→21:04)
[2020-02-22 06:33] LABS: Hemoglobin 7.7 g/dL (12.0-16.0); Mean Corpuscular Hemoglobin 20.4 pg (27.0-31.0); Mean Corpuscular Volume 68.2 fL (78.0-98.0); Mean Platelet Volume 11.1 fL (7.4-10.4); Platelet Count 368 thou/uL (130-400); RBC Distribution Width 23.1 % (11.5-14.5); Red Blood Cell (RBC) Count 3.74 mill/uL (4.20-5.40); White Blood Cell (WBC) Count 14.5 thou/uL (4.8-10.8)
[2020-02-22 06:34] LABS: Band 3 % (5-11); Eosinophils 2 % (0-10); Hypochromia SLIGHT = 6-15 cells (100X) (0-5/hpf); Lymphocytes 18 % (21-51); MDiff Complete? YES; Metamyelocyte 3 % (0-0); Monocytes 5 % (0-10); Myelocyte 1 % (0-0); Neutrophil 68 % (42-75); Ovalocytes SLIGHT = 2-5 cells (100X) (0-1/hpf); Platelet Morphology Comment Appears Adequate
[2020-02-22 06:35] LABS: ALT (SGPT) 9 U/L (8-55); AST (SGOT) 14 U/L (5-34); Albumin 2.3 g/dL (3.4-4.8); Alkaline Phosphatase 182 U/L (40-110); Anion Gap 14 mmol/L (10-20); BUN (Urea Nitrogen) 4 mg/dL (9.8-20.1); Bilirubin, Total 0.3 mg/dL (0.2-1.2); Calc. Creatinine Clearance 127 mL/min (70-130); Calcium 7.8 mg/dL (7.8-10.44); Carbon Dioxide 24 mmol/L (23-31); Chloride 105 mmol/L (98-107); Estimated GFR-MDRD 76; Globulin 3.2 g/dL (2.4-3.5); Glucose 94 mg/dL (80-115); Protein, Total 5.5 g/dL (6.0-8.3); Sodium 139 mmol/L (136-145)
[2020-02-22] MEDS: ceFAZolin 1 GM/D5W 1 GM in Premix Bag 1 BAG IVPB SCH ×4 (08:00→23:40)
[2020-02-22] MEDS ORDERED: CEFAZOLIN 1 GM VIAL ONE (08:32)
[2020-02-22] MEDS ORDERED: Sodium Chloride 0.9% 100 ML ONE (08:33)
[2020-02-22] MEDS ORDERED: Bupivacaine 0.25% HCL 30 ML VIAL ONE (08:33)
[2020-02-22] MEDS ORDERED: EPINEPHrine 1 MG/ML AMP ONE (08:33)
[2020-02-22] MEDS ORDERED: Fentanyl 100 MCG/2 ML VIAL ONE ×2 (08:42→10:14)
[2020-02-22] MEDS ORDERED: Midazolam HCl 2 mg/2 ml Vial ONE (08:42)
[2020-02-22] MEDS ORDERED: Lidocaine 1% w/Epinephrine 1:100K 20 ML VIAL ONE (09:41)
--- NOTE | 2020-02-22 10:25 | OP ---
DATE OF PROCEDURE: 02/22/2020 PREOPERATIVE DIAGNOSES: Perineal mass, right groin abscess. POSTOPERATIVE DIAGNOSES: Perineal mass, right groin abscess. PROCEDURES PERFORMED: 1. Exam under anesthesia with multiple biopsies of perineal mass. 2. I and D of deep right groin abscess. ANESTHESIA: General. ESTIMATED BLOOD LOSS: Minimal. COMPLICATIONS: None. SPECIMEN: Multiple biopsies both excisional and core needle biopsies of this circumferential perineal mass. DESCRIPTION OF PROCEDURE: The patient was taken to the operating room and laid supine on the operating room table. After general anesthetic was obtained, placed in lithotomy position. Perineum and right groin were prepped and draped in a sterile fashion. The patient had a large open wound circumferential to the perianal tissues with significant ulceration and large open wound into the buttock tissues on each side. There was involvement of the circumferential sphincter complex. There was [id number] stenosis of the anal canal. Digital rectal exam was able to examine the rectum showing no obvious rectal mass. There was stool in the vault. Multiple sharp and core biopsies were performed and sent to Pathology for final diagnosis. Meticulous hemostasis was obtained. The elliptical incision was made on top of the most fluctuant part of the right groin abscess. Purulence was obtained and the wound was irrigated. All loculations were broken up. The right groin was packed using wet-to-dry saline soaked gauze. The patient was sent to Recovery in stable condition. All instrument counts, needle counts, and lap counts were correct. Job ID: [id number]
[2020-02-22] MEDS ORDERED: PROPOFOL 200 MG/20 ML VIAL ONE (10:42)
[2020-02-22] MEDS ORDERED: Lidocaine 1% PF 5 ML VIAL ONE (10:42)
--- NOTE | 2020-02-22 10:54 | PDOC.HOSPP ---
- Subjective Encounter Date: 02/22/20 Encounter Time: 10:50 Subjective: f/u for perianal ulceration/mass with ? R groin abscess s/p I&D today with multiple biopsies obtained and exam under anesthesia. Receiving Ancef IV currently. - Objective Vital Signs & Weight: Vital Signs (12 hours) Temp Pulse Resp BP Pulse Ox 02/22/20 07:15 97.6 F 74 18 123/72 97 Weight Weight 231 lb I&O: 02/21/20 02/22/20 02/23/20 06:59 06:59 06:59 Intake Total 1050 240 Balance 1050 240 Result Diagrams: 02/22/20 05:41 02/22/20 05:41 Additional Labs: Microbiology 02/18/20 19:50 Urine voided Urine Culture - Preliminary Beta-hemolytic strep group A 02/18/20 18:05 Venous blood - Right Arm Blood Culture - Preliminary Specimen has been received and culture in progress. No Growth to date. 02/18/20 18:01 Venous blood - Left Arm Blood Culture - Preliminary Specimen has been received and culture in progress. No Growth to date. Laboratory Tests 02/18/20 02/18/20 02/18/20 18:01 18:01 18:01 WBC 31.2 H Hgb 7.2 L MCV 62.7 L Band Neuts % (Manual) 22 H Potassium 2.9 L* Lactic Acid 2.4 H Magnesium Iron TIBC Carcinoembryonic Ag SARS-CoV-2 (PCR) 02/18/20 02/19/20 02/19/20 23:05 06:43 06:43 WBC 20.5 H Hgb 6.0 L MCV Band Neuts % (Manual) 3 L Potassium 3.2 L Lactic Acid Magnesium 2.0 Iron 9 L TIBC 238 L Carcinoembryonic Ag SARS-CoV-2 (PCR) Not Detected 02/20/20 05:37 WBC Hgb MCV Band Neuts % (Manual) Potassium Lactic Acid Magnesium Iron TIBC Carcinoembryonic Ag 14.94 H SARS-CoV-2 (PCR) Radiology Reviewed by me: Yes (Bone scan - negative for metastatic process) Hospitalist ROS - Medication Medications: Active Medications Generic Name Dose Route Start Last Admin Trade Name Freq PRN Reason Stop Dose Admin Acetaminophen 650 mg 02/18/20 22:12 11/14/20 19:39 Acetaminophen 325 Mg Tab PO 650 mg Q4H PRN Administration Headache/Fever/Mild Pain (1-3) Hydrocodone Bitart/Acetaminophen 1 tab 02/18/20 22:12 02/22/20 01:57 Hydrocodone/Acetaminophen 5/325 Mg Tablet PO 1 tab Q4H PRN Administration Moderate Pain (4-6) Docusate Sodium 100 mg 02/21/20 21:00 02/21/20 20:57 Docusate 100 Mg Cap PO 100 mg BID DOMINIQUE Administration Sodium Chloride 1,000 mls @ 70 mls/hr 02/18/20 22:15 02/21/20 20:59 Normal Saline 0.9% IV 1,000 mls .[id number] DOMINIQUE Administration Cefazolin Sodium/Dextrose 1 gm 50 mls @ 100 mls/hr 02/18/20 23:59 02/22/20 08:00 / Device IVPB Not Given 0800,1600,2359 DOMINIQUE Morphine Sulfate 4 mg 02/20/20 16:27 02/21/20 20:55 Morphine 4 Mg/Ml Vial SLOW IVP 4 mg Q4H PRN Administration PAIN 4-6 Potassium Chloride 40 meq 02/20/20 17:00 02/21/20 16:47 Potassium Chloride 20 Meq Tab PO 40 meq BID-WM DOMINIQUE Administration Sodium Chloride 10 ml 02/19/20 21:00 02/21/20 20:57 Flush - Normal Saline 10 Ml Syringe IVF 10 ml Q12HR DOMINIQUE Administration - Exam General Appearance: NAD, awake alert Eye: PERRL, anicteric sclera ENT: normocephalic atraumatic, no oropharyngeal lesions Neck: supple, symmetric, no JVD, no thyromegaly, no lymphadenopathy Heart: RRR, no gallops, no rubs, normal peripheral pulses Heart - other findings: S1, S2 Respiratory: no tachypnea Respiratory - other findings: scattered wheezes, few rhonchi Gastrointestinal: soft, non-tender, non-distended, normal bowel sounds, no hepatomegaly Extremities: no cyanosis, no clubbing, no edema Skin: normal turgor Skin - other findings: large perianal ulcerative mass/post-surgical changes noted Neurological: cranial nerve grossly intact, no new deficit Musculoskeletal: normal tone, generalized weakness Psychiatric: A&O x 3, flat affect Hosp A/P (1) Sepsis Code(s): A41.9 - SEPSIS, UNSPECIFIED ORGANISM Status: Acute Plan: Improved, continue Ancef, apparent R groin abscess identified during EUA with I&D today, await final cx results (2) Rectal mass Code(s): K62.89 - OTHER SPECIFIED DISEASES OF ANUS AND RECTUM Status: Acute Plan: Perianal ulceration likely malignant process s/p multiple biopsies today, await final pathology (3) UTI (urinary tract infection) Status: Acute Plan: Strep spp isolated, continue Ancef (4) Tobacco abuse Code(s): Z72.0 - TOBACCO USE Status: Chronic (5) Anemia Code(s): D64.9 - ANEMIA, UNSPECIFIED Status: Chronic Plan: s/p 2u PRBC's and IV Iron infusion, serial H/H, FeSO4 supplements (6) Hypokalemia Code(s): E87.6 - HYPOKALEMIA Status: Acute - Plan continue antibiotics, PT/OT, group social worker, out of bed/ambulate, DVT proph w/SCDs Continue Ancef IV Pain control prn Continue Restoril 15mg HS COVID negative s/p IV Iron infusion s/p 2u PRBC's Plan for EUA with biopsy 02/22/20 Await final pathology/wound cx results AM lab: CMP, CBC
[2020-02-22] MEDS: Potassium Chloride 20 MEQ TAB PO SCH ×2 (11:14→17:48)
[2020-02-22] MEDS: Docusate 100 MG CAP PO SCH ×2 (11:15→21:01)
[2020-02-22] MEDS: Sodium Chloride 0.9% 1,000 ML IV SCH ×2 (11:23→21:09)
[2020-02-22] MEDS: Morphine 4 MG/ML VIAL SLOW IVP PRN ×2 (13:14→18:13)
[2020-02-22] MEDS: Polyethylene Glycol 3350 17 GM Packet PO SCH (13:18)
[2020-02-23] MEDS: Morphine 4 MG/ML VIAL SLOW IVP PRN ×2 (02:31→09:44)
[2020-02-23 06:50] LABS: #Eosinphils 0.5 thou/uL (0.0-0.7); #Lymphocytes 2.3 thou/uL (1.20-3.40); #Monocytes 0.8 thou/uL (0.11-0.59); #Neutrophils 6.3 thou/uL (1.40-6.50); %Basophils 0.2 % (0.0-1.0); %Eosinophils 4.9 % (0.0-10.0); %Lymphocytes 23.2 % (21.0-51.0); %Monocytes 8.4 % (0.0-10.0); %Neutrophils 63.3 % (42.0-75.0); Hemoglobin 7.9 g/dL (12.0-16.0); Mean Corpuscular HGB CONC 30.3 g/dL (32.0-36.0); Mean Corpuscular Hemoglobin 21.2 pg (27.0-31.0); Mean Corpuscular Volume 69.8 fL (78.0-98.0); Mean Platelet Volume 10.8 fL (7.4-10.4); Platelet Count 386 thou/uL (130-400); RBC Distribution Width 24.9 % (11.5-14.5); Red Blood Cell (RBC) Count 3.72 mill/uL (4.20-5.40)
[2020-02-23 07:07] LABS: ALT (SGPT) Less than 7 U/L (8-55); AST (SGOT) 11 U/L (5-34); Albumin 2.3 g/dL (3.4-4.8); Alkaline Phosphatase 157 U/L (40-110); Anion Gap 13 mmol/L (10-20); BUN (Urea Nitrogen) Less than 4 mg/dL (9.8-20.1); Bilirubin, Total 0.3 mg/dL (0.2-1.2); Calc. Creatinine Clearance 125 mL/min (70-130); Calcium 7.9 mg/dL (7.8-10.44); Carbon Dioxide 22 mmol/L (23-31); Chloride 106 mmol/L (98-107); Estimated GFR-MDRD 75; Globulin 3.2 g/dL (2.4-3.5); Glucose 100 mg/dL (80-115); Potassium 4.4 mmol/L (3.5-5.1); Protein, Total 5.5 g/dL (6.0-8.3); Sodium 137 mmol/L (136-145)
[2020-02-23 07:52] LABS: Band 5 % (5-11); Eosinophils 2 % (0-10); Hypochromia MODERATE=16-30 cells (100X) (0-5/hpf); Lymphocytes 23 % (21-51); MDiff Complete? YES; Metamyelocyte 4 % (0-0); Microcytosis MODERATE=15-30 cells (100X) (0-5/hpf); Monocytes 7 % (0-10); Myelocyte 4 % (0-0); Neutrophil 54 % (42-75); Nucleated RBC 1 % (0); Ovalocytes SLIGHT = 2-5 cells (100X) (0-1/hpf); Platelet Morphology Comment Appears Adequate; Polychromasia MODERATE = 3-4 cells (100X) (0-2/hpf); Reactive Lymphocytes 1 % (0-10)
[2020-02-23] MEDS: HYDROcodone/Acetaminophen 5/325 mg Tablet PO PRN ×3 (08:43→20:59)
[2020-02-23] MEDS: Potassium Chloride 20 MEQ TAB PO SCH (08:46)
[2020-02-23] MEDS: ceFAZolin 1 GM/D5W 1 GM in Premix Bag 1 BAG IVPB SCH ×3 (08:46→23:07)
[2020-02-23] MEDS: Docusate 100 MG CAP PO SCH ×2 (08:46→20:55)
--- NOTE | 2020-02-23 11:51 | PDOC.HOSPP ---
- Subjective Encounter Date: 02/23/20 Encounter Time: 11:50 Subjective: f/u for perianal mass/ulceration likely malignant s/p multiple biopsies with pathology pending. s/p I&D of R groin abscess POD #1 receiving Ancef. Nursing reports increased pain with dressing changes of perineum. - Objective Vital Signs & Weight: Vital Signs (12 hours) Temp Pulse Resp BP Pulse Ox 02/23/20 11:21 98.0 F 70 16 114/70 98 02/23/20 07:30 98.0 F 75 16 129/69 98 Weight Admit Weight 231 lb Weight 231 lb I&O: 02/22/20 02/23/20 02/24/20 06:59 06:59 06:59 Intake Total 240 3160 240 Balance 240 3160 240 Result Diagrams: 02/23/20 06:27 02/23/20 06:27 Additional Labs: Microbiology 02/18/20 19:50 Urine voided Urine Culture - Preliminary Beta-hemolytic strep group A 02/18/20 18:05 Venous blood - Right Arm Blood Culture - Preliminary Specimen has been received and culture in progress. No Growth to date. 02/18/20 18:01 Venous blood - Left Arm Blood Culture - Preliminary Specimen has been received and culture in progress. No Growth to date. Laboratory Tests 02/18/20 02/18/20 02/18/20 18:01 18:01 18:01 WBC 31.2 H Hgb 7.2 L MCV 62.7 L Band Neuts % (Manual) 22 H Potassium 2.9 L* Lactic Acid 2.4 H Magnesium Iron TIBC Carcinoembryonic Ag SARS-CoV-2 (PCR) 02/18/20 02/19/20 02/19/20 23:05 06:43 06:43 WBC 20.5 H Hgb 6.0 L MCV Band Neuts % (Manual) 3 L Potassium 3.2 L Lactic Acid Magnesium 2.0 Iron 9 L TIBC 238 L Carcinoembryonic Ag SARS-CoV-2 (PCR) Not Detected 02/20/20 05:37 WBC Hgb MCV Band Neuts % (Manual) Potassium Lactic Acid Magnesium Iron TIBC Carcinoembryonic Ag 14.94 H SARS-CoV-2 (PCR) Hospitalist ROS - Medication Medications: Active Medications Generic Name Dose Route Start Last Admin Trade Name Freq PRN Reason Stop Dose Admin Acetaminophen 650 mg 02/18/20 22:12 02/19/20 19:39 Acetaminophen 325 Mg Tab PO 650 mg Q4H PRN Administration Headache/Fever/Mild Pain (1-3) Hydrocodone Bitart/Acetaminophen 1 tab 02/18/20 22:12 02/23/20 08:43 Hydrocodone/Acetaminophen 5/325 Mg Tablet PO 1 tab Q4H PRN Administration Moderate Pain (4-6) Docusate Sodium 100 mg 02/21/20 21:00 02/23/20 08:46 Docusate 100 Mg Cap PO 100 mg BID DOMINIQUE Administration Sodium Chloride 1,000 mls @ 70 mls/hr 02/18/20 22:15 02/22/20 21:09 Normal Saline 0.9% IV 1,000 mls .[id number] DOMINIQUE Administration Cefazolin Sodium/Dextrose 1 gm 50 mls @ 100 mls/hr 02/18/20 23:59 02/23/20 08:46 / Device IVPB 50 mls 0800,1600,2359 DOMINIQUE Administration Morphine Sulfate 4 mg 02/20/20 16:27 02/23/20 09:44 Morphine 4 Mg/Ml Vial SLOW IVP 4 mg Q4H PRN Administration PAIN 4-6 Polyethylene Glycol 17 gm 02/22/20 14:00 02/22/20 13:18 Polyethylene Glycol 3350 17 Gm Packet PO 17 gm 1400 DOMINIQUE Administration Potassium Chloride 40 meq 02/20/20 17:00 02/23/20 08:46 Potassium Chloride 20 Meq Tab PO 40 meq BID-WM DOMINIQUE Administration Sodium Chloride 10 ml 02/19/20 21:00 02/23/20 08:47 Flush - Normal Saline 10 Ml Syringe IVF 10 ml Q12HR DOMINIQUE Administration - Exam General Appearance: NAD, awake alert Eye: PERRL, anicteric sclera ENT: normocephalic atraumatic, no oropharyngeal lesions Neck: supple, symmetric, no JVD, no thyromegaly Heart: RRR, no gallops, no rubs, normal peripheral pulses Heart - other findings: S1, S2 Respiratory: CTAB, no rales, no ronchi, normal chest expansion, wheezes Gastrointestinal: soft, non-tender, non-distended, normal bowel sounds, no palp able masses Extremities: no cyanosis, no clubbing, no edema Skin: normal turgor Skin - other findings: see wound photos, wound packing in place Neurological: cranial nerve grossly intact, no new deficit Musculoskeletal: normal tone, generalized weakness Psychiatric: normal affect, A&O x 3 Hosp A/P (1) Sepsis Code(s): A41.9 - SEPSIS, UNSPECIFIED ORGANISM Status: Acute Plan: Sepsis due to skin infection and R groin abscess, continue Ancef (2) Rectal mass Code(s): K62.89 - OTHER SPECIFIED DISEASES OF ANUS AND RECTUM Status: Acute Plan: s/p multiple biopsies awaiting pathology, local wound care, pain control (3) UTI (urinary tract infection) Status: Acute Plan: Continue Ancef (4) Tobacco abuse Code(s): Z72.0 - TOBACCO USE Status: Chronic (5) Anemia Code(s): D64.9 - ANEMIA, UNSPECIFIED Status: Chronic Plan: s/p 2u PRBC's and IV Iron infusion, FeSO4 325mg BID (6) Hypokalemia Code(s): E87.6 - HYPOKALEMIA Status: Acute Plan: Resolved, continue KCL supplementation - Plan continue antibiotics, sr. social media & mobile manager, respiratory therapy, out of bed/ambulate, DVT proph w/SCDs Continue Ancef IV Pain control prn Continue Restoril 15mg HS COVID negative s/p IV Iron infusion s/p 2u PRBC's Start FeSO4 325mg BID Await final pathology/wound cx results Pain control with Morphine Sulfate 6mg IV prior to dressing changes AM lab: CBC
[2020-02-23] MEDS: Sodium Chloride 0.9% 1,000 ML IV SCH (12:44)
[2020-02-23] MEDS: Polyethylene Glycol 3350 17 GM Packet PO SCH (15:37)
[2020-02-23] MEDS: Ferrous Sulfate 325 MG TAB PO SCH (16:30)
[2020-02-23] MEDS: Morphine 10 MG/ML VIAL SLOW IVP PRN (23:52)
[2020-02-24] MEDS: Sodium Chloride 0.9% 1,000 ML IV SCH ×2 (02:31→20:12)
[2020-02-24 06:12] LABS: Hemoglobin 8.5 g/dL (12.0-16.0); Mean Corpuscular HGB CONC 30.2 g/dL (32.0-36.0); Mean Corpuscular Hemoglobin 21.6 pg (27.0-31.0); Mean Corpuscular Volume 71.4 fL (78.0-98.0); Mean Platelet Volume 10.3 fL (7.4-10.4); Platelet Count 401 thou/uL (130-400); RBC Distribution Width 25.9 % (11.5-14.5); Red Blood Cell (RBC) Count 3.95 mill/uL (4.20-5.40)
[2020-02-24 06:13] LABS: Band 2 % (5-11); Eosinophils 7 % (0-10); Lymphocytes 34 % (21-51); MDiff Complete? YES; Metamyelocyte 1 % (0-0); Monocytes 5 % (0-10); Myelocyte 1 % (0-0); Neutrophil 50 % (42-75); Platelet Morphology Comment Appears Adequate
[2020-02-24] MEDS: Potassium Chloride 20 MEQ TAB PO SCH (09:07)
[2020-02-24] MEDS: HYDROcodone/Acetaminophen 5/325 mg Tablet PO PRN ×3 (09:08→18:23)
[2020-02-24] MEDS: Docusate 100 MG CAP PO SCH ×2 (09:09→20:09)
[2020-02-24] MEDS: Ferrous Sulfate 325 MG TAB PO SCH ×2 (09:09→16:18)
[2020-02-24] MEDS: ceFAZolin 1 GM/D5W 1 GM in Premix Bag 1 BAG IVPB SCH ×3 (09:15→23:39)
[2020-02-24] MEDS: Morphine 10 MG/ML VIAL SLOW IVP PRN ×2 (09:58→20:09)
--- NOTE | 2020-02-24 10:13 | PDOC.GSPN ---
Surgery Progress Note: Subj - Subjective Patient reports: no new complaints Surgery Progress Note: Obj - Vital signs Vital signs: Vital Signs - Most Recent Temp Pulse Resp BP Pulse Ox 97.5 F L 75 16 128/76 97 02/24/20 07:20 02/24/20 07:20 02/24/20 07:20 02/24/20 07:20 02/24/20 07:20 - Physical Exam Cardiovascular: regular rate and rhythm Respiratory: clear to auscultation Surgery Progress Note: Results - Labs Result Diagrams: 02/24/20 05:16 02/23/20 06:27 Lab results: Laboratory Results - last 12 hr 02/24/20 05:16 WBC 10.0 RBC 3.95 L Hgb 8.5 L Hct 28.2 L MCV 71.4 L MCH 21.6 L MCHC 30.2 L RDW 25.9 H Plt Count 401 H MPV 10.3 Neutrophils % (Manual) 50 Band Neuts % (Manual) 2 L Lymphocytes % (Manual) 34 Monocytes % (Manual) 5 Eosinophils % (Manual) 7 Metamyelocytes % (Man) 1 H Myelocytes % 1 H Plt Morphology Comment Appears Adequate Surgery Progress Note: A/P - 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
--- NOTE | 2020-02-24 11:22 | PDOC.HOSPP ---
- Subjective Encounter Date: 02/24/20 Encounter Time: : Subjective: f/u for rectal/perianal ulcerative mass confirmed to be squamous cell carcinoma by biopsy. Plan for colostomy and mediport placement in am. Receiving Ancef/Morphine/IVF's. - Objective Vital Signs & Weight: Vital Signs (12 hours) Temp Pulse Resp BP Pulse Ox 02/24/20 07:20 97.5 F L 75 16 128/76 97 Weight Admit Weight 231 lb Weight 231 lb I&O: 02/23/20 02/24/20 02/25/20 06:59 06:59 06:59 Intake Total 3160 3060 Balance 3160 3060 Result Diagrams: 02/24/20 05:16 02/23/20 06:27 Additional Labs: Microbiology 02/18/20 19:50 Urine voided Urine Culture - Preliminary Beta-hemolytic strep group A 02/18/20 18:05 Venous blood - Right Arm Blood Culture - Preliminary Specimen has been received and culture in progress. No Growth to date. 02/18/20 18:01 Venous blood - Left Arm Blood Culture - Preliminary Specimen has been received and culture in progress. No Growth to date. Laboratory Tests 02/18/20 02/18/20 02/18/20 18:01 18:01 18:01 WBC 31.2 H Hgb 7.2 L MCV 62.7 L Band Neuts % (Manual) 22 H Potassium 2.9 L* Lactic Acid 2.4 H Magnesium Iron TIBC Carcinoembryonic Ag SARS-CoV-2 (PCR) 02/18/20 02/19/20 02/19/20 23:05 06:43 06:43 WBC 20.5 H Hgb 6.0 L MCV Band Neuts % (Manual) 3 L Potassium 3.2 L Lactic Acid Magnesium 2.0 Iron 9 L TIBC 238 L Carcinoembryonic Ag SARS-CoV-2 (PCR) Not Detected 02/20/20 05:37 WBC Hgb MCV Band Neuts % (Manual) Potassium Lactic Acid Magnesium Iron TIBC Carcinoembryonic Ag 14.94 H SARS-CoV-2 (PCR) Hospitalist ROS - Medication Medications: Active Medications Generic Name Dose Route Start Last Admin Trade Name Freq PRN Reason Stop Dose Admin Acetaminophen 650 mg 02/18/20 22:12 02/19/20 19:39 Acetaminophen 325 Mg Tab PO 650 mg Q4H PRN Administration Headache/Fever/Mild Pain (1-3) Hydrocodone Bitart/Acetaminophen 1 tab 02/18/20 22:12 02/24/20 09:08 Hydrocodone/Acetaminophen 5/325 Mg Tablet PO 1 tab Q4H PRN Administration Moderate Pain (4-6) Docusate Sodium 100 mg 02/21/20 21:00 02/24/20 09:09 Docusate 100 Mg Cap PO 100 mg BID DOMINIQUE Administration Ferrous Sulfate 325 mg 02/23/20 17:00 02/24/20 09:09 Ferrous Sulfate 325 Mg Tab PO 325 mg BID-WM DOMINIQUE Administration Sodium Chloride 1,000 mls @ 70 mls/hr 02/18/20 22:15 02/24/20 02:31 Normal Saline 0.9% IV 1,000 mls .[id number] DOMINIQUE Administration Cefazolin Sodium/Dextrose 1 gm 50 mls @ 100 mls/hr 02/18/20 23:59 02/24/20 09:15 / Device IVPB 50 mls 0800,1600,2359 DOMINIQUE Administration Morphine Sulfate 6 mg 02/23/20 12:01 02/24/20 09:58 Morphine 10 Mg/Ml Vial SLOW IVP 6 mg Q4H PRN Administration Moderate Pain (4-6) Polyethylene Glycol 17 gm 02/22/20 14:00 02/23/20 15:37 Polyethylene Glycol 3350 17 Gm Packet PO 17 gm 1400 DOMINIQUE Administration Potassium Chloride 40 meq 02/24/20 09:00 02/24/20 09:07 Potassium Chloride 20 Meq Tab PO 40 meq DAILY DOMINIQUE Administration Sodium Chloride 10 ml 02/19/20 21:00 02/24/20 09:10 Flush - Normal Saline 10 Ml Syringe IVF 10 ml Q12HR DOMINIQUE Administration - Exam General Appearance: NAD, awake alert Eye: PERRL, anicteric sclera ENT: normocephalic atraumatic, no oropharyngeal lesions Neck: supple, symmetric, no JVD, no thyromegaly, no lymphadenopathy Heart: RRR, no gallops, no rubs, normal peripheral pulses Heart - other findings: S1, S2 Respiratory: no tachypnea Respiratory - other findings: diminished bilat, few scattered rhonchi/wheezes Gastrointestinal: soft, non-tender, non-distended, normal bowel sounds, no palpable masses Gastrointestinal - other findings: obese Extremities: no cyanosis, no clubbing, no edema Skin: normal turgor, no lesions Neurological: cranial nerve grossly intact, no new deficit Musculoskeletal: normal tone, normal strength, no muscle wasting Psychiatric: normal affect, A&O x 3 Hosp A/P (1) Sepsis Code(s): A41.9 - SEPSIS, UNSPECIFIED ORGANISM Status: Acute Plan: Resolving, continue Ancef (2) Rectal mass Code(s): K62.89 - OTHER SPECIFIED DISEASES OF ANUS AND RECTUM Status: Acute Plan: Squamous cell carcinoma confirmed by biopsy, plan for Mediport placement, Medical oncology evaluation, pain control, plan for diverting colostomy (3) UTI (urinary tract infection) Status: Acute Plan: Group A Strep spp, continue Ancef (4) Tobacco abuse Code(s): Z72.0 - TOBACCO USE Status: Chronic Plan: Nicotine patch 21mg TD daily (5) Anemia Code(s): D64.9 - ANEMIA, UNSPECIFIED Status: Chronic (6) Hypokalemia Code(s): E87.6 - HYPOKALEMIA Status: Acute Plan: Resolved - Plan continue antibiotics, PT/OT, psych social worker, respiratory therapy, out of be d/ambulate, DVT proph w/SCDs Continue Ancef IV Pain control prn Continue Restoril 15mg HS COVID negative s/p IV Iron infusion s/p 2u PRBC's Start FeSO4 325mg BID Plan for diverting colostomy/Mediport placement 02/25/20 Pain control with Morphine Sulfate 6mg IV prior to dressing changes AM lab: CBC
[2020-02-24] MEDS ORDERED: Nicotine 21 MG PATCH TD SCH (12:00)
[2020-02-24] MEDS: Polyethylene Glycol 3350 17 GM Packet PO SCH (13:25)
[2020-02-25] MEDS: HYDROcodone/Acetaminophen 5/325 mg Tablet PO PRN ×2 (04:03→08:19)
--- NOTE | 2020-02-25 07:02 | EKG ---
Test Reason : PREOP Blood Pressure : / mmHG Vent. Rate : 071 BPM Atrial Rate : 071 BPM P-R Int : 144 ms QRS Dur : 090 ms QT Int : 474 ms P-R-T Axes : 072 -01 025 degrees QTc Int : 515 ms Normal sinus rhythm Prolonged QT Abnormal ECG When compared with ECG of 18-FEB-2020 18:13, (Unconfirmed) Criteria for Septal infarct are no longer Present Confirmed by ARTI DELANEY MD ([id number]) on 02/25/2020 7:02:05 AM Referred By: ANDREA Confirmed By:ARTI DELANEY MD
[2020-02-25] MEDS: Docusate 100 MG CAP PO SCH ×2 (08:18→20:44)
[2020-02-25] MEDS: ceFAZolin 1 GM/D5W 1 GM in Premix Bag 1 BAG IVPB SCH (08:18)
[2020-02-25] MEDS: Potassium Chloride 20 MEQ TAB PO SCH (08:19)
[2020-02-25] MEDS: Ferrous Sulfate 325 MG TAB PO SCH ×2 (08:19→17:04)
[2020-02-25] MEDS: Nicotine 21 MG PATCH TD SCH (08:20)
[2020-02-25] MEDS: Morphine 10 MG/ML VIAL SLOW IVP PRN (08:43)
[2020-02-25] MEDS ORDERED: Fentanyl 100 MCG/2 ML VIAL ONE ×2 (11:21→15:13)
[2020-02-25] MEDS ORDERED: Midazolam HCl 2 mg/2 ml Vial ONE (11:21)
--- NOTE | 2020-02-25 11:44 | PDOC.HOSPP ---
- Subjective Encounter Date: 02/25/20 Encounter Time: 11:35 Subjective: f/u for confirmed Squamous Cell CA of rectum/perineum currently receiving Ancef. Awaiting colostomy/Mediport placement today. - Objective Vital Signs & Weight: Vital Signs (12 hours) Temp Pulse Resp BP Pulse Ox 02/25/20 07:30 97.6 F 69 20 129/72 94 L Weight Admit Weight 231 lb Weight 231 lb I&O: 02/24/20 02/25/20 02/26/20 06:59 06:59 06:59 Intake Total 3060 3505 Balance 3060 3505 Result Diagrams: 02/24/20 05:16 02/23/20 06:27 Additional Labs: Microbiology 02/18/20 19:50 Urine voided Urine Culture - Preliminary Beta-hemolytic strep group A 02/18/20 18:05 Venous blood - Right Arm Blood Culture - Preliminary Specimen has been received and culture in progress. No Growth to date. 02/18/20 18:01 Venous blood - Left Arm Blood Culture - Preliminary Specimen has been received and culture in progress. No Growth to date. Laboratory Tests 02/18/20 02/18/20 02/18/20 18:01 18:01 18:01 WBC 31.2 H Hgb 7.2 L MCV 62.7 L Band Neuts % (Manual) 22 H Potassium 2.9 L* Lactic Acid 2.4 H Magnesium Iron TIBC Carcinoembryonic Ag SARS-CoV-2 (PCR) 02/18/20 02/19/20 02/19/20 23:05 06:43 06:43 WBC 20.5 H Hgb 6.0 L MCV Band Neuts % (Manual) 3 L Potassium 3.2 L Lactic Acid Magnesium 2.0 Iron 9 L TIBC 238 L Carcinoembryonic Ag SARS-CoV-2 (PCR) Not Detected 02/20/20 05:37 WBC Hgb MCV Band Neuts % (Manual) Potassium Lactic Acid Magnesium Iron TIBC Carcinoembryonic Ag 14.94 H SARS-CoV-2 (PCR) Hospitalist ROS - Medication Medications: Active Medications Generic Name Dose Route Start Last Admin Trade Name Freq PRN Reason Stop Dose Admin Acetaminophen 650 mg 02/18/20 22:12 02/19/20 19:39 Acetaminophen 325 Mg Tab PO 650 mg Q4H PRN Administration Headache/Fever/Mild Pain (1-3) Hydrocodone Bitart/Acetaminophen 1 tab 02/18/20 22:12 02/25/20 08:19 Hydrocodone/Acetaminophen 5/325 Mg Tablet PO 1 tab Q4H PRN Administration Moderate Pain (4-6) Docusate Sodium 100 mg 02/21/20 21:00 02/25/20 08:18 Docusate 100 Mg Cap PO 100 mg BID DOMINIQUE Administration Ferrous Sulfate 325 mg 02/23/20 17:00 02/25/20 08:19 Ferrous Sulfate 325 Mg Tab PO 325 mg BID-WM DOMINIQUE Administration Sodium Chloride 1,000 mls @ 70 mls/hr 02/18/20 22:15 02/24/20 20:12 Normal Saline 0.9% IV 1,000 mls .[id number] DOMINIQUE Administration Cefazolin Sodium/Dextrose 1 gm 50 mls @ 100 mls/hr 02/18/20 23:59 02/25/20 08:18 / Device IVPB 50 mls [id number] DOMINIQUE Administration Morphine Sulfate 6 mg 02/23/20 12:01 02/25/20 08:43 Morphine 10 Mg/Ml Vial SLOW IVP 6 mg Q4H PRN Administration Moderate Pain (4-6) Nicotine 21 mg 02/25/20 09:00 02/25/20 08:20 Nicotine 21 Mg Patch TD Not Given DAILY DOMINIQUE Polyethylene Glycol 17 gm 02/22/20 14:00 02/24/20 13:25 Polyethylene Glycol 3350 17 Gm Packet PO 17 gm 1400 DOMINIQUE Administration Potassium Chloride 40 meq 02/24/20 09:00 02/25/20 08:19 Potassium Chloride 20 Meq Tab PO 40 meq DAILY DOMINIQUE Administration Sodium Chloride 10 ml 02/19/20 21:00 02/24/20 20:21 Flush - Normal Saline 10 Ml Syringe IVF Not Given Q12HR DOMINIQUE - Exam General Appearance: NAD, awake alert Eye: PERRL, anicteric sclera ENT: normocephalic atraumatic, no oropharyngeal lesions Neck: supple, symmetric, no JVD, no thyromegaly, no lymphadenopathy Heart: RRR, no gallops, no rubs, normal peripheral pulses Heart - other findings: S1, S2 Respiratory - other findings: few scattered rhonchi/wheezes o/w clear Gastrointestinal: soft, non-tender, non-distended, normal bowel sounds, no palpable masses Extremities: no cyanosis, no clubbing, no edema Skin: normal turgor Neurological: cranial nerve grossly intact, no new deficit Musculoskeletal: normal tone, normal strength, no muscle wasting Psychiatric: normal affect, A&O x 3 Hosp A/P (1) Rectal mass Code(s): K62.89 - OTHER SPECIFIED DISEASES OF ANUS AND RECTUM Status: Acute Plan: Confirmed squamous cell carcinoma by biopsy, plan for diverting colostomy today with Mediport placement, outpt follow up with medical oncology (2) Sepsis Code(s): A41.9 - SEPSIS, UNSPECIFIED ORGANISM Status: Acute Plan: Resolved, continue Ancef for local cellulitis/R groin abscess (3) UTI (urinary tract infection) Status: Acute Plan: Group A strep spp isolated, continue Ancef (4) Tobacco abuse Code(s): Z72.0 - TOBACCO USE Status: Chronic Plan: Nicotine patch (5) Anemia Code(s): D64.9 - ANEMIA, UNSPECIFIED Status: Chronic Plan: s/p 2u PRBC's, serial H/H monitoring (6) Hypokalemia Code(s): E87.6 - HYPOKALEMIA Status: Acute Plan: Resolved - Plan continue antibiotics, social services counselor, respiratory therapy, incentive spirometry, out of bed/ambulate, DVT proph w/SCDs Continue Ancef IV Pain control prn Continue Restoril 15mg HS COVID negative s/p IV Iron infusion s/p 2u PRBC's Start FeSO4 325mg BID Plan for diverting colostomy/Mediport placement 02/25/20 Pain control with Morphine Sulfate 6mg IV prior to dressing change Outpt follow up with Medical Oncology AM lab: CBC
[2020-02-25] MEDS: Sodium Chloride 0.9% 1,000 ML IV SCH (13:07)
[2020-02-25] MEDS ORDERED: Ondansetron PF 4 MG/2 ML Vial ONE (13:21)
[2020-02-25] MEDS ORDERED: PROPOFOL 200 MG/20 ML VIAL ONE (13:21)
[2020-02-25] MEDS ORDERED: Dexamethasone 20 MG/5 ML VIAL ONE (13:21)
[2020-02-25] MEDS ORDERED: Rocuronium Bromide 10 MG/ML (10ML VIAL) ONE (13:21)
[2020-02-25] MEDS ORDERED: Glycopyrrolate 0.2 MG/ML 5 ML SYRINGE ONE (13:21)
[2020-02-25] MEDS ORDERED: Lidocaine 1% PF 5 ML VIAL ONE (13:21)
[2020-02-25] MEDS ORDERED: Lidocaine 1% w/Epinephrine 1:100K 20 ML VIAL ONE (13:22)
[2020-02-25] MEDS ORDERED: Bupivacaine 0.25% HCL 30 ML VIAL ONE (13:22)
[2020-02-25] MEDS ORDERED: Fentanyl 250 MCG/5 ML VIAL ONE (13:23)
[2020-02-25] MEDS ORDERED: Morphine 4 MG/ML VIAL SLOW IVP PRN (14:47)
[2020-02-25] MEDS ORDERED: Promethazine HCl 25 MG/ML VIAL IM PRN (15:05)
[2020-02-25] MEDS ORDERED: Promethazine HCl 25 MG/ML VIAL SLOW IVP PRN (15:05)
[2020-02-25] MEDS ORDERED: Ondansetron HCl/PF 4 MG/2 ML Vial IVP PRN (15:05)
[2020-02-25] MEDS: Polyethylene Glycol 3350 17 GM Packet PO SCH (15:29)
--- NOTE | 2020-02-25 15:48 | RAD ---
RADIOGRAPH CHEST 1 VIEW: DATE: 02/25/2020 HISTORY: 59-year-old female status post MediPort placement COMPARISON: 02/20/2020 FINDINGS: There are no airspace densities, pulmonary edema, pneumothorax, or cardiomegaly. The lateral costophr enic angles are sharp. There is a new implantable vascular access port descending the right medial neck, with distal tip ove rlying the right side of the mediastinum, somewhere near the junction between the SVC and confluence of brachiocephalic veins. IMPRESSION: 1. No acute cardiopulmonary findings. 2. Right internal jugular implantable vascular access port placement without pneumothorax.
[2020-02-25] MEDS: Morphine 2 MG/ML VIAL SLOW IVP PRN (17:04)
[2020-02-25] MEDS: HYDROcodone/Acetaminophen 7.5/325 mg Tablet PO PRN (18:50)
--- NOTE | 2020-02-25 20:16 | OP ---
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 PROCEDURES PERFORMED: 1. Tunneled central line with subcutaneous port (MediPort, CT injectable). 2. Laparoscopic diverting loop colostomy, distal transverse colon. ANESTHESIA: General. ESTIMATED BLOOD LOSS: Minimal. COMPLICATIONS: None. DESCRIPTION OF PROCEDURE: The patient was taken to the operating room and laid supine on the operating room table. After general anesthetic was obtained, her bilateral neck and chest were prepped and draped in a sterile fashion. Local anesthetic was infiltrated over the right internal jugular vein. Internal jugular vein was cannulated using a Seldinger needle. A wire was passed under fluoro guidance without tension. A small ayesha was made at the wire entrance site. A separate 3 cm incision was made in the right upper chest. Subcutaneous pocket was made below the lower incision. Tubing for the MediPort tunneled from the inferior to superior incision, and suture sheath was placed over the wire into the superior vena cava under fluoro guidance. The dilator and wire were removed. The end of the catheter threaded into the sheath. The sheath was peeled away. The tip of the catheter is at the atriocaval junction. The MediPort tubing was cut to fit the MediPort at the lower incision, connected to the MediPort. The MediPort sewn to the chest wall in a subcutaneous pocket using Prolene. MediPort flushes and draws blood without difficulties, flushed with a saline solution. The wounds were irrigated and closed using 3-0 Vicryl, 4-0 Monocryl, and Dermabond. The patient's abdomen was then prepped and draped in a sterile fashion. A Basurto catheter had been placed. An incision was made above the umbilicus. Dissection was taken down to the fascia, where a small ayesha was made. The abdominal cavity was entered bluntly using a Emily clamp. 5 mm laparoscopic sleeve was placed, and high-flow pneumoperitoneum was obtained. Left upper quadrant and right upper quadrant 5 mm ports were placed as well. The patient's sigmoid colon was fairly adhesed down. Decision was made to do a loop colostomy in the left upper quadrant. In this area, the distal transverse colon was able to be brought up against the posterior abdominal wall under no tension. Ellipse of skin was taken down in the left upper quadrant. A cruciate incision was made in the fascia. Under laparoscopic guidance, a Rubia was placed in through the peritoneum and used to grab the colon and bring it up. Its proper orientation was kept in place. The other ports were removed. Pneumoperitoneum was let down. PDS was used to close the fascial defect above the umbilicus. The other incisions and this one were closed using 4-0 Monocryl and Dermabond. The loop colostomy was then matured in the usual fashion with a retention bar using 3-0 Vicryl and a colostomy device. The patient was sent to Recovery in stable condition. All instrument counts, needle counts, and lap counts were correct. Job ID: [id number]
[2020-02-26] MEDS: Sodium Chloride 0.9% 1,000 ML IV SCH ×2 (02:06→17:38)
[2020-02-26] MEDS: HYDROcodone/Acetaminophen 7.5/325 mg Tablet PO PRN (02:25)
[2020-02-26] MEDS: Morphine 2 MG/ML VIAL SLOW IVP PRN (05:34)
--- NOTE | 2020-02-26 07:49 | PRG ---
DATE OF SERVICE: 02/26/2020 SUBJECTIVE: Ms. Drew is doing well. She is hungry. Her ostomy already has stool and air in the bag. She is up in a chair. States that her back side pain is actually improved. ASSESSMENT: Status post diverting colostomy. PLAN: We can teach her how to pack her own wound or have family do it and do some colostomy teaching. She could probably be discharged. Treatment plans will be finalized as an outpatient. I want her to see me back the first week of March. Job ID: [id number]
[2020-02-26] MEDS: Docusate 100 MG CAP PO SCH ×2 (08:14→21:05)
[2020-02-26] MEDS: Potassium Chloride 20 MEQ TAB PO SCH (08:15)
[2020-02-26] MEDS: Ferrous Sulfate 325 MG TAB PO SCH ×2 (08:16→17:39)
[2020-02-26] MEDS: Nicotine 21 MG PATCH TD SCH ×2 (08:16→08:23)
[2020-02-26] MEDS: Morphine 10 MG/ML VIAL SLOW IVP PRN ×2 (09:38→21:04)
[2020-02-26] MEDS: HYDROcodone/Acetaminophen 5/325 mg Tablet PO PRN ×2 (09:39→17:41)
[2020-02-26] MEDS: Polyethylene Glycol 3350 17 GM Packet PO SCH (15:15)
--- NOTE | 2020-02-26 16:34 | EKG ---
Test Reason : Blood Pressure : / mmHG Vent. Rate : 087 BPM Atrial Rate : 087 BPM P-R Int : 140 ms QRS Dur : 090 ms QT Int : 460 ms P-R-T Axes : 072 -14 044 degrees QTc Int : 553 ms Normal sinus rhythm Possible Left atrial enlargement Septal infarct , age undetermined Prolonged QT Abnormal ECG Confirmed by MICHELLE SOTOMAYOR DO ([id number]), manager editorial KALEB RODRIGUEZ ([id number]) on 02/26/2020 4:33:31 PM Referred By: Confirmed By:MICHELLE SOTOMAYOR DO
--- NOTE | 2020-02-26 17:35 | PDOC.HOSPP ---
- Subjective Encounter Date: 02/26/20 Encounter Time: 17:33 Subjective: MS. MOE WAS SEEN TODAY IN FOLLOW-UP OF RECTAL MASS, AND CELLULITIS. sHE DOES NOT HAVE ANY COMPLAINTS EXCEPT THAT SHE FEEL WEAK, AND LIVES ALONE. SHE IS NOT CERTAIN IF SHE WILL BE ABLE TO HANDLE THE DRESSING CHANGES ON HER OWN. SHE ALSO SAYS SHE HAS " A WEAK STOMACH". - Objective Vital Signs & Weight: Vital Signs (12 hours) Temp Pulse Resp BP Pulse Ox 02/26/20 07:37 97.6 F 80 20 137/74 94 L Weight Admit Weight 231 lb Weight 231 lb I&O: 02/25/20 02/26/20 02/27/20 06:59 06:59 06:59 Intake Total 3505 2278 960 Output Total 3450 700 Balance 3505 -1172 260 Result Diagrams: 02/24/20 05:16 02/23/20 06:27 Hospitalist ROS - Medication Medications: Active Medications Generic Name Dose Route Start Last Admin Trade Name Freq PRN Reason Stop Dose Admin Acetaminophen 650 mg 02/18/20 22:12 02/19/20 19:39 Acetaminophen 325 Mg Tab PO 650 mg Q4H PRN Administration Headache/Fever/Mild Pain (1-3) Hydrocodone Bitart/Acetaminophen 1 tab 02/18/20 22:12 02/26/20 09:39 Hydrocodone/Acetaminophen 5/325 Mg Tablet PO 1 tab Q4H PRN Administration Moderate Pain (4-6) Hydrocodone Bitart/Acetaminophen 1 tab 02/25/20 14:47 02/26/20 02:25 Hydrocodone/Acetaminophen 7.5/325 Mg Tablet PO 1 tab Q6H PRN Administration Mild Pain (1-3) Docusate Sodium 100 mg 02/21/20 21:00 02/26/20 08:14 Docusate 100 Mg Cap PO 100 mg BID DOMINIQUE Administration Ferrous Sulfate 325 mg 02/23/20 17:00 02/26/20 08:16 Ferrous Sulfate 325 Mg Tab PO 325 mg BID-WM DOMINIQUE Administration Sodium Chloride 1,000 mls @ 70 mls/hr 02/18/20 22:15 02/26/20 02:06 Normal Saline 0.9% IV 1,000 mls .[id number] DOMINIQUE Administration Morphine Sulfate 6 mg 02/23/20 12:01 11/21/20 09:38 Morphine 10 Mg/Ml Vial SLOW IVP 6 mg Q4H PRN Administration Moderate Pain (4-6) Morphine Sulfate 2 mg 02/25/20 14:47 02/26/20 05:34 Morphine 2 Mg/Ml Vial SLOW IVP 2 mg Q2H PRN Administration Pain Nicotine 21 mg 02/25/20 09:00 02/26/20 08:23 Nicotine 21 Mg Patch TD Not Given DAILY DOMINIQUE Polyethylene Glycol 17 gm 02/22/20 14:00 02/26/20 15:15 Polyethylene Glycol 3350 17 Gm Packet PO 17 gm 1400 DOMINIQUE Administration Potassium Chloride 40 meq 02/24/20 09:00 02/26/20 08:15 Potassium Chloride 20 Meq Tab PO 40 meq DAILY DOMINIQUE Administration Sodium Chloride 10 ml 02/19/20 21:00 02/26/20 08:16 Flush - Normal Saline 10 Ml Syringe IVF 10 ml Q12HR DOMINIQUE Administration - Exam Eye: PERRL, anicteric sclera Heart: RRR, no murmur, no gallops, no rubs, normal peripheral pulses Respiratory: CTAB, no wheezes, no rales, no ronchi, normal chest expansion, no tachypnea, normal percussion Gastrointestinal: soft, non-tender, non-distended, normal bowel sounds, no palpable masses, no hepatomegaly Extremities: no cyanosis, no clubbing, 1+ LE edema Hosp A/P (1) Anal squamous cell carcinoma Code(s): C21.0 - MALIGNANT NEOPLASM OF ANUS, UNSPECIFIED Status: Acute (2) Smoker Code(s): F17.200 - NICOTINE DEPENDENCE, UNSPECIFIED, UNCOMPLICATED Status: Acute (3) UTI (urinary tract infection) Status: Acute - Plan * Rectal Mass- path results noted- She was found to have squamous cell carcinoma. A mediport was placed * She is currently being instructed on Colostomy care * She is uninsured. She lives alone- will consult case management to see if she would qualify for [facility] for a few visits * Tobacco abuse- discussed briefly
[2020-02-27] MEDS: Sodium Chloride 0.9% 1,000 ML IV SCH ×2 (05:49→08:26)
[2020-02-27] MEDS: HYDROcodone/Acetaminophen 5/325 mg Tablet PO PRN ×3 (07:32→21:58)
[2020-02-27] MEDS: Ferrous Sulfate 325 MG TAB PO SCH ×2 (08:22→17:36)
[2020-02-27] MEDS: Potassium Chloride 20 MEQ TAB PO SCH (08:24)
[2020-02-27] MEDS: Nicotine 21 MG PATCH TD SCH (08:25)
[2020-02-27] MEDS: Docusate 100 MG CAP PO SCH ×2 (08:25→21:00)
[2020-02-27] MEDS: Morphine 10 MG/ML VIAL SLOW IVP PRN (09:48)
[2020-02-27] MEDS: Polyethylene Glycol 3350 17 GM Packet PO SCH (14:23)
--- NOTE | 2020-02-27 17:04 | PDOC.HOSPP ---
- Subjective Encounter Date: 02/27/20 Encounter Time: 17:02 Subjective: Ms. Drew was seen today in follow-up of anal cancer, s/p diverting colostomy. She says she feels very tired, but otherwise on complaints. - Objective Vital Signs & Weight: Vital Signs (12 hours) Temp Pulse Resp BP BP Pulse Ox 02/27/20 15:46 98.1 F 88 18 147/74 H 94 L 02/27/20 11:00 98.1 F 77 20 134/71 94 L 02/27/20 08:00 98.3 F 77 18 150/77 H 91 L Weight Admit Weight 231 lb Weight 231 lb I&O: 02/26/20 02/27/20 02/28/20 06:59 06:59 06:59 Intake Total 2278 2900 720 Output Total 3450 4150 Balance -1172 -1250 720 Result Diagrams: 02/24/20 05:16 02/23/20 06:27 Hospitalist ROS - Medication Medications: Active Medications Generic Name Dose Route Start Last Admin Trade Name Freq PRN Reason Stop Dose Admin Acetaminophen 650 mg 02/18/20 22:12 02/19/20 19:39 Acetaminophen 325 Mg Tab PO 650 mg Q4H PRN Administration Headache/Fever/Mild Pain (1-3) Hydrocodone Bitart/Acetaminophen 1 tab 02/18/20 22:12 02/27/20 15:16 Hydrocodone/Acetaminophen 5/325 Mg Tablet PO 1 tab Q4H PRN Administration Moderate Pain (4-6) Hydrocodone Bitart/Acetaminophen 1 tab 02/25/20 14:47 02/26/20 02:25 Hydrocodone/Acetaminophen 7.5/325 Mg Tablet PO 1 tab Q6H PRN Administration Mild Pain (1-3) Docusate Sodium 100 mg 02/21/20 21:00 02/27/20 08:25 Docusate 100 Mg Cap PO 100 mg BID DOMINIQUE Administration Ferrous Sulfate 325 mg 02/23/20 17:00 02/27/20 08:22 Ferrous Sulfate 325 Mg Tab PO 325 mg BID-WM DOMINIQUE Administration Sodium Chloride 1,000 mls @ 70 mls/hr 02/18/20 22:15 02/27/20 08:26 Normal Saline 0.9% IV 1,000 mls .[id number] DOMINIQUE Administration Morphine Sulfate 6 mg 02/23/20 12:01 02/27/20 09:48 Morphine 10 Mg/Ml Vial SLOW IVP 6 mg Q4H PRN Administration Moderate Pain (4-6) Morphine Sulfate 2 mg 02/25/20 14:47 02/26/20 05:34 Morphine 2 Mg/Ml Vial SLOW IVP 2 mg Q2H PRN Administration Pain Nicotine 21 mg 02/25/20 09:00 02/27/20 08:25 Nicotine 21 Mg Patch TD Not Given DAILY DOMINIQUE Polyethylene Glycol 17 gm 02/22/20 14:00 02/27/20 14:23 Polyethylene Glycol 3350 17 Gm Packet PO 17 gm 1400 DOMINIQUE Administration Potassium Chloride 40 meq 02/24/20 09:00 02/27/20 08:24 Potassium Chloride 20 Meq Tab PO 40 meq DAILY DOMINIQUE Administration Sodium Chloride 10 ml 02/19/20 21:00 02/27/20 08:26 Flush - Normal Saline 10 Ml Syringe IVF 10 ml Q12HR DOMINIQUE Administration - Exam Eye: PERRL, anicteric sclera Heart: RRR, no murmur, no gallops, no rubs, normal peripheral pulses Respiratory: CTAB, no wheezes, no rales, no ronchi, normal chest expansion Gastrointestinal: soft, tender to palpation (+ mild tenderness around the stoma, but no erythema, no induration, no drainage) Extremities: no cyanosis, 1+ LE edema Hosp A/P (1) Anal squamous cell carcinoma Code(s): C21.0 - MALIGNANT NEOPLASM OF ANUS, UNSPECIFIED Status: Acute (2) Smoker Code(s): F17.200 - NICOTINE DEPENDENCE, UNSPECIFIED, UNCOMPLICATED Status: Acute (3) UTI (urinary tract infection) Status: Acute - Plan * Rectal Mass- path results noted- She was found to have squamous cell c arcinoma. A mediport was placed * She has been reluctant to be instructed on Colostomy care * She is trying to make arrangements for someone to help her with the colostomy care upon discharge. She tells me she has family and friends who have dome this type of care in the past. * Anticipate home tomorrow, and the patient is aware * She is uninsured. She lives alone- will consult case management to see if she would qualify for [facility] for a few visits * Tobacco abuse- discussed
[2020-02-28] MEDS: HYDROcodone/Acetaminophen 5/325 mg Tablet PO PRN ×3 (02:30→20:30)
[2020-02-28] MEDS: Nicotine 21 MG PATCH TD SCH (08:56)
[2020-02-28] MEDS: Docusate 100 MG CAP PO SCH ×2 (08:57→20:30)
[2020-02-28] MEDS: Ferrous Sulfate 325 MG TAB PO SCH ×2 (08:57→16:13)
[2020-02-28] MEDS: Morphine 2 MG/ML VIAL SLOW IVP PRN (11:51)
[2020-02-28 12:11] LABS: Anion Gap 12 mmol/L (10-20); BUN (Urea Nitrogen) 6 mg/dL (9.8-20.1); Calc. Creatinine Clearance 118 mL/min (70-130); Calcium 8.3 mg/dL (7.8-10.44); Carbon Dioxide 28 mmol/L (23-31); Chloride 103 mmol/L (98-107); Estimated GFR-MDRD 70; Glucose 108 mg/dL (80-115); Potassium 4.2 mmol/L (3.5-5.1); Sodium 139 mmol/L (136-145)
[2020-02-28 12:27] LABS: #Eosinphils 0.3 thou/uL (0.0-0.7); #Lymphocytes 2.2 thou/uL (1.20-3.40); #Monocytes 0.6 thou/uL (0.11-0.59); #Neutrophils 8.1 thou/uL (1.40-6.50); %Basophils 0.3 % (0.0-1.0); %Eosinophils 2.4 % (0.0-10.0); %Lymphocytes 19.4 % (21.0-51.0); %Monocytes 4.9 % (0.0-10.0); Anisocytosis MODERATE=16-30 cells (100X) (0-5/hpf); Elliptocytes SLIGHT = 2-5 cells (100X) (0-1/hpf); Hemoglobin 9.2 g/dL (12.0-16.0); Hypochromia SLIGHT = 6-15 cells (100X) (0-5/hpf); MDiff Complete? YES; Mean Corpuscular HGB CONC 29.6 g/dL (32.0-36.0); Mean Corpuscular Hemoglobin 21.7 pg (27.0-31.0); Mean Corpuscular Volume 73.3 fL (78.0-98.0); Mean Platelet Volume 9.9 fL (7.4-10.4); Microcytosis SLIGHT = 6-15 cells (100X) (0-5/hpf); Platelet Count 369 thou/uL (130-400); Platelet Morphology Comment Appears Adequate; Polychromasia SLIGHT = 2-3 cells (100X) (0-2/hpf); RBC Distribution Width 26.5 % (11.5-14.5); Red Blood Cell (RBC) Count 4.23 mill/uL (4.20-5.40); Tear Drops SLIGHT = 2-5 cells (100X) (0-1/hpf); White Blood Cell (WBC) Count 11.1 thou/uL (4.8-10.8)
[2020-02-28] MEDS: Sodium Chloride 0.9% 1,000 ML IV SCH (12:33)
[2020-02-28] MEDS: Potassium Chloride 20 MEQ TAB PO SCH (12:33)
[2020-02-28] MEDS: Polyethylene Glycol 3350 17 GM Packet PO SCH (14:56)
[2020-02-28] MEDS: HYDROcodone/Acetaminophen 7.5/325 mg Tablet PO PRN (16:12)
--- NOTE | 2020-02-28 16:33 | PDOC.HOSPP ---
- Subjective Encounter Date: 02/28/20 Encounter Time: 16:30 Subjective: Ms. Drew was seen today in follow-up of squamous cell carcinoma of the anus. She does not have any new complaints. - Objective Vital Signs & Weight: Vital Signs (12 hours) Temp Pulse Resp BP Pulse Ox 02/28/20 13:36 97.4 F L 79 20 146/76 H 94 L 02/28/20 08:33 97.7 F 80 20 153/75 H 92 L 02/28/20 08:00 93 L Weight Admit Weight 231 lb Weight 231 lb I&O: 02/27/20 02/28/20 02/29/20 06:59 06:59 06:59 Intake Total 2900 3090 Output Total 4150 1950 Balance -1250 1140 Result Diagrams: 02/28/20 11:28 02/28/20 11:28 Hospitalist ROS - Medication Medications: Active Medications Generic Name Dose Route Start Last Admin Trade Name Freq PRN Reason Stop Dose Admin Acetaminophen 650 mg 02/18/20 22:12 02/19/20 19:39 Acetaminophen 325 Mg Tab PO 650 mg Q4H PRN Administration Headache/Fever/Mild Pain (1-3) Hydrocodone Bitart/Acetaminophen 1 tab 02/18/20 22:12 02/28/20 09:01 Hydrocodone/Acetaminophen 5/325 Mg Tablet PO 1 tab Q4H PRN Administration Moderate Pain (4-6) Hydrocodone Bitart/Acetaminophen 1 tab 02/25/20 14:47 02/28/20 16:12 Hydrocodone/Acetaminophen 7.5/325 Mg Tablet PO 1 tab Q6H PRN Administration Mild Pain (1-3) Docusate Sodium 100 mg 02/21/20 21:00 02/28/20 08:57 Docusate 100 Mg Cap PO 100 mg BID DOMINIQUE Administration Ferrous Sulfate 325 mg 02/23/20 17:00 02/28/20 16:13 Ferrous Sulfate 325 Mg Tab PO 325 mg BID-WM DOMINIQUE Administration Sodium Chloride 1,000 mls @ 70 mls/hr 02/18/20 22:15 02/28/20 12:33 Normal Saline 0.9% IV 1,000 mls .[id number] DOMINIQUE Administration Morphine Sulfate 6 mg 02/23/20 12:01 02/27/20 09:48 Morphine 10 Mg/Ml Vial SLOW IVP 6 mg Q4H PRN Administration Moderate Pain (4-6) Morphine Sulfate 2 mg 02/25/20 14:47 02/28/20 11:51 Morphine 2 Mg/Ml Vial SLOW IVP 2 mg Q2H PRN Administration Pain Nicotine 21 mg 02/25/20 09:00 02/28/20 08:56 Nicotine 21 Mg Patch TD Not Given DAILY DOMINIQUE Polyethylene Glycol 17 gm 02/22/20 14:00 02/28/20 14:56 Polyethylene Glycol 3350 17 Gm Packet PO 17 gm 1400 DOMINIQUE Administration Sodium Chloride 10 ml 02/19/20 21:00 02/28/20 08:57 Flush - Normal Saline 10 Ml Syringe IVF Not Given Q12HR DOMINIQUE - Exam Eye: PERRL, anicteric sclera Respiratory: CTAB, no wheezes, no rales Hosp A/P (1) Anal squamous cell carcinoma Code(s): C21.0 - MALIGNANT NEOPLASM OF ANUS, UNSPECIFIED Status: Acute (2) Smoker Code(s): F17.200 - NICOTINE DEPENDENCE, UNSPECIFIED, UNCOMPLICATED Status: Acute (3) UTI (urinary tract infection) Status: Acute - Plan * Squamous Cell carcinoma of the anus- she is s/p resection and colosotomy. * I spoke with her daughter Xiomy over the phone. She is willing to come tomorrow for training on colostomy care. She is also willing to help her mother at home with dressing changes. She will be here tomorrow around noon * Symptom management. * Tobacco abuse- discussed
[2020-02-29] MEDS: HYDROcodone/Acetaminophen 7.5/325 mg Tablet PO PRN ×2 (00:52→08:20)
[2020-02-29] MEDS: Sodium Chloride 0.9% 1,000 ML IV SCH (03:03)
[2020-02-29] MEDS: Ferrous Sulfate 325 MG TAB PO SCH (08:19)
[2020-02-29] MEDS: Docusate 100 MG CAP PO SCH (08:19)
[2020-02-29] MEDS: Nicotine 21 MG PATCH TD SCH (08:20)
[2020-02-29] MEDS: Morphine 2 MG/ML VIAL SLOW IVP PRN (12:28)
--- NOTE | 2020-02-29 15:41 | PDOC.HOSPP ---
- Subjective Encounter Date: 02/29/20 Encounter Time: 15:39 Subjective: Ms. Drew was seen today in follow-up of squamous cell carcinoma. She does not have any complaints today. - Objective Vital Signs & Weight: Vital Signs (12 hours) Temp Pulse Resp BP BP Pulse Ox 02/29/20 12:57 97.3 F L 76 20 152/77 H 95 02/29/20 08:17 97.7 F 68 20 155/80 H 94 L 02/29/20 08:00 94 L 02/29/20 05:21 97.7 F 65 20 149/76 H 94 L Weight Admit Weight 231 lb Weight 231 lb I&O: 02/28/20 02/29/20 03/01/20 06:59 06:59 06:59 Intake Total 3090 Output Total 1950 Balance 1140 Result Diagrams: 02/28/20 11:28 02/28/20 11:28 Hospitalist ROS - Medication Medications: Active Medications Generic Name Dose Route Start Last Admin Trade Name Freq PRN Reason Stop Dose Admin Acetaminophen 650 mg 02/18/20 22:12 02/19/20 19:39 Acetaminophen 325 Mg Tab PO 650 mg Q4H PRN Administration Headache/Fever/Mild Pain (1-3) Hydrocodone Bitart/Acetaminophen 1 tab 02/25/20 14:47 02/29/20 08:20 Hydrocodone/Acetaminophen 7.5/325 Mg Tablet PO 1 tab Q6H PRN Administration Mild Pain (1-3) Docusate Sodium 100 mg 02/21/20 21:00 02/29/20 08:19 Docusate 100 Mg Cap PO 100 mg BID DOMINIQUE Administration Ferrous Sulfate 325 mg 02/23/20 17:00 02/29/20 08:19 Ferrous Sulfate 325 Mg Tab PO 325 mg BID-WM DOMINIQUE Administration Sodium Chloride 1,000 mls @ 70 mls/hr 02/18/20 22:15 02/29/20 03:03 Normal Saline 0.9% IV 1,000 mls .[id number] DOMINIQUE Administration Morphine Sulfate 6 mg 02/23/20 12:01 02/27/20 09:48 Morphine 10 Mg/Ml Vial SLOW IVP 6 mg Q4H PRN Administration Moderate Pain (4-6) Morphine Sulfate 2 mg 02/25/20 14:47 02/29/20 12:28 Morphine 2 Mg/Ml Vial SLOW IVP 2 mg Q2H PRN Administration Pain Nicotine 21 mg 02/25/20 09:00 02/29/20 08:20 Nicotine 21 Mg Patch TD Not Given DAILY DOMINIQUE Polyethylene Glycol 17 gm 02/22/20 14:00 02/28/20 14:56 Polyethylene Glycol 3350 17 Gm Packet PO 17 gm 1400 DOMINIQUE Administration Sodium Chloride 10 ml 02/19/20 21:00 02/29/20 08:20 Flush - Normal Saline 10 Ml Syringe IVF Not Given Q12HR DOMINIQUE - Exam Eye: PERRL, anicteric sclera Heart: RRR, no murmur, no gallops, no rubs, normal peripheral pulses Respiratory: CTAB, no wheezes, no rales, no ronchi Hosp A/P (1) Anal squamous cell carcinoma Code(s): C21.0 - MALIGNANT NEOPLASM OF ANUS, UNSPECIFIED Status: Acute (2) Smoker Code(s): F17.200 - NICOTINE DEPENDENCE, UNSPECIFIED, UNCOMPLICATED Status: Acute (3) UTI (urinary tract infection) Status: Acute - Plan * Squamous Cell carcinoma of the anus- she is s/p resection and colosotomy. * Her daughter has been trained on colostomy care and wound care * She has some supplies to take home, and knows where to obtain them once discharged * Stable for discharge home.
--- NOTE | 2020-02-29 17:38 | PDOC.DS.DS ---
Provider - Provider Date of Admission: 02/18/20 20:25 Date of Discharge: 02/29/20 Admitting Provider: Hang Deras Consultations: General Surgery, Oncology Primary Care Physician: RAMSEY PCP PROVIDER Course - Hospital Course Hospital Course: Ms. Drew is a 59-year-old female that has no significant past medical history. She presented to the emergency room complaining of pain in the right pubic area. She was evaluated in the emergency room and found to have a abscess in the right groin. CT scan done in the emergency room demonstrated a soft tissue density in the perianal region as well which was concerning for a anal malignancy. Also demonstrated a area of inflammation in the right inguinal area as well as cholelithiasis and right pelvic sidewall lymphadenopathy. The patient was placed on IV antibiotics and surgery was consulted. The patient underwent I&D of the deep right groin abscess. And the area in the anal region was biopsied. 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 The patient ultimately underwent laparoscopic resection of the anal mass as well as a diverting colostomy. Also during this time the patient had a Mediport placed in anticipation that the lesion was malignant. The patient was evaluated by the oncology service while she was admitted to the hospital. And once she has healed from the surgery plan is for her to start with outpatient chemotherapy. The patient is uninsured and as a result a [facility] visit with the outpatient wound care was established. Her family mem bers were trained on proper colostomy care as well as wound care. And once this was done the patient was able to be discharged home. During her hospital stay she was also counseled on the dangers and the need to quit smoking. Procedures: CT scan of Abdomen an Pelvis Bon Scan I&D of deep groin abscess Mediport placement Resuscitation Status: 02/18/20 22:12 Resuscitation Status Routine Resuscitation Status: FULL: Full Resuscitation - Labs Lab Results: 02/28/20 11:28 02/28/20 11:28 Abnormal Lab Results - Last 48 hrs 02/28/20 11:28: BUN 6 L 02/28/20 11:28: WBC 11.1 H, Hgb 9.2 L, Hct 31.0 L, MCV 73.3 L, MCH 21.7 L, MCHC 29.6 L, RDW 26.5 H, Lymphocytes % 19.4 L, Neutrophils # 8.1 H, Monocytes # 0.6 H, Anisocytosis MODERATE=16-30 cells H Microbiology - Entire Visit 02/18/20 18:01 Venous blood - Left Arm Blood Culture - Final NO GROWTH IN 5 DAYS 02/18/20 18:05 Venous blood - Right Arm Blood Culture - Final NO GROWTH IN 5 DAYS 02/18/20 19:50 Urine voided Urine Culture - Final Beta-hemolytic strep group A - Physical Exam Vitals: Vital Signs (12 hours) Temp Pulse Resp BP Pulse Ox 02/29/20 12:57 97.3 F L 76 20 152/77 H 95 02/29/20 08:17 97.7 F 68 20 155/80 H 94 L 02/29/20 08:00 94 L Weight Admit Weight 231 lb Weight 231 lb Physical Exam: The patient was seen and examined on the day of discharge. Problem - Problem (1) Anal squamous cell carcinoma Code(s): C21.0 - MALIGNANT NEOPLASM OF ANUS, UNSPECIFIED Status: Acute (2) Smoker Code(s): F17.200 - NICOTINE DEPENDENCE, UNSPECIFIED, UNCOMPLICATED Status: Acute (3) UTI (urinary tract infection) Status: Resolved Plan - Discharge Medications Prescriptions: Ferrous Sulfate [Feosol] 325 mg PO BID-WM #60 tab HYDROcodone Bit/APAP 7.5/325 [[place]] 1 tab PO Q6H PRN #30 tab PRN Reason: Mild Pain (1-3) Home Medications: Medication Instructions Recorded Confirmed Type Ferrous Sulfate [Feosol] 325 mg PO BID-WM #60 tab 02/29/20 Rx HYDROcodone Bit/APAP 7.5/325 1 tab PO Q6H PRN #30 tab 02/29/20 Rx [[place]] Allergies: No Known Allergies Allergy (Verified 02/19/20 01:34) - Discharge Instructions Activity:: Activity as Tolerated Nourishment:: Heart Healthy Diet - Follow up Plan Referrals: Laurence Williamson [Other] (A referral was made to [facility] for initial ostomy supplies. Please contact their patient assistance program for additional support at [phone] option 6. Another option for ostomy supplies assistance is through the [facility] assistance program. Their contact number is [phone].) W[facility] - [place] [Outside] - 03/08/20 10:15 am Anupam Azul MD [Active] - 03/07/20 9:00 am ([place] [facility] [address] [place] [address], [place] [address]) PROVIDER,NO PCP [Primary Care Provider] - Darien Coello MD [Active] - 14 Days Disposition: HOME Quality - Care Measures CORE MEASURES:: N/A
[2020-02-29 17:47] VITALS: BP 160/77; TEMP 98.5
== END 2020-02-29 18:37 | disposition home or self-care (01) | DRG 854 ==
LOC: ERS 16:27 → T4-B 20:25
PROVIDERS: ADMIT Internal Medicine; ATTEND Internal Medicine
PROC: 0Y950ZZ Drainage of Right Inguinal Region, Open Approach (ICD-10-PCS; 2020-02-19)
PROC: 30233N1 Transfusion of Nonautologous Red Blood Cells into Peripheral Vein, Percutaneous Approach (ICD-10-PCS; 2020-02-19)
PROC: 0WBN0ZX Excision of Female Perineum, Open Approach, Diagnostic (ICD-10-PCS; 2020-02-22)
PROC: 0D1L4Z4 Bypass Transverse Colon to Cutaneous, Percutaneous Endoscopic Approach (ICD-10-PCS; principal; 2020-02-25)
PROC: 0JH60WZ Insertion of Totally Implantable Vascular Access Device into Chest Subcutaneous Tissue and Fascia, Open Approach (ICD-10-PCS; 2020-02-25)
PROC: 02HV33Z Insertion of Infusion Device into Superior Vena Cava, Percutaneous Approach (ICD-10-PCS; 2020-02-25)
DX: A41.9 Sepsis, unspecified organism (principal); C21.0 Malignant neoplasm of anus, unspecified; N39.0 Urinary tract infection, site not specified; L03.115 Cellulitis of right lower limb; C77.4 Secondary and unspecified malignant neoplasm of inguinal and lower limb lymph nodes; C77.5 Secondary and unspecified malignant neoplasm of intrapelvic lymph nodes; F17.210 Nicotine dependence, cigarettes, uncomplicated; Z20.828 Contact with and (suspected) exposure to other viral communicable diseases; R65.20 Severe sepsis without septic shock; E87.6 Hypokalemia; B95.0 Streptococcus, group A, as the cause of diseases classified elsewhere; D63.0 Anemia in neoplastic disease; G40.909 Epilepsy, unspecified, not intractable, without status epilepticus; Z88.5 Allergy status to narcotic agent; Z88.8 Allergy status to other drugs, medicaments and biological substances; Z79.899 Other long term (current) drug therapy
CPT/HCPCS: 36415; 36430; 51701; 71045; 71046; 74177; 78306; 80048; 80053; 81003; 81015; 82378; 83540; 83550; 83605; 83735; 85007; 85025; 85027; 85060; 86850; 86900; 86901; 87040; 87077; 87086; 87635; 88305; 88341; 88342; 93005; 93010; 96365; 96366; 96367; 96375; A9503; C1788; J0171; J0690; J1100; J1642; J1650; J2250; J2270; J2405; J2543; J2704; J2916; J3010; J3370; J3490; J7030; J7620; P9016; Q9967; S0020; U0003

== ENCOUNTER 2020-03-01 12:57 | Emergency (ER) | payer SELFPAY ==
[2020-03-01] MEDS ORDERED: Morphine 4 MG/ML VIAL ONE (13:54)
[2020-03-01 14:14] LABS: ALT (SGPT) Less than 7 U/L (8-55); AST (SGOT) 13 U/L (5-34); Alkaline Phosphatase 121 U/L (40-110); Anion Gap 15 mmol/L (10-20); BUN (Urea Nitrogen) 5 mg/dL (9.8-20.1); Bilirubin, Total 0.6 mg/dL (0.2-1.2); Calc. Creatinine Clearance 0 mL/min (70-130); Calcium 8.9 mg/dL (7.8-10.44); Carbon Dioxide 23 mmol/L (23-31); Chloride 106 mmol/L (98-107); Estimated GFR-MDRD 61; Glucose 105 mg/dL (80-115); Potassium 3.3 mmol/L (3.5-5.1); Sodium 141 mmol/L (136-145)
[2020-03-01 14:19] LABS: #Basophils 0.1 thou/uL (0.0-0.2); #Eosinphils 0.2 thou/uL (0.0-0.7); #Lymphocytes 1.5 thou/uL (1.20-3.40); #Monocytes 0.6 thou/uL (0.11-0.59); #Neutrophils 11.1 thou/uL (1.40-6.50); %Basophils 0.6 % (0.0-1.0); %Eosinophils 1.2 % (0.0-10.0); %Lymphocytes 11.4 % (21.0-51.0); %Monocytes 4.6 % (0.0-10.0); %Neutrophils 82.3 % (42.0-75.0); Hypochromia SLIGHT = 6-15 cells (100X) (0-5/hpf); MDiff Complete? YES; Mean Corpuscular HGB CONC 29.5 g/dL (32.0-36.0); Mean Corpuscular Hemoglobin 21.5 pg (27.0-31.0); Mean Corpuscular Volume 73.1 fL (78.0-98.0); Mean Platelet Volume 10.7 fL (7.4-10.4); Microcytosis SLIGHT = 6-15 cells (100X) (0-5/hpf); Ovalocytes SLIGHT = 2-5 cells (100X) (0-1/hpf); Platelet Count 407 thou/uL (130-400); Platelet Morphology Comment Appears Increased; Polychromasia SLIGHT = 2-3 cells (100X) (0-2/hpf); RBC Distribution Width 27.2 % (11.5-14.5); Red Blood Cell (RBC) Count 4.64 mill/uL (4.20-5.40); Target Cells SLIGHT = 2-5 cells (100X) (0-1/hpf); White Blood Cell (WBC) Count 13.5 thou/uL (4.8-10.8)
[2020-03-01] MEDS ORDERED: HYDROcodone/Acetaminophen 7.5/325 mg Tablet ONE (17:59)
== END 2020-03-01 18:10 | disposition home or self-care (01) ==
LOC: ERS 12:57
DX: C20 Malignant neoplasm of rectum (principal); G40.909 Epilepsy, unspecified, not intractable, without status epilepticus; F41.9 Anxiety disorder, unspecified; F17.210 Nicotine dependence, cigarettes, uncomplicated
CPT/HCPCS: 36415; 80053; 85025; 96374; J2270

== ENCOUNTER 2020-03-17 12:40 | Emergency (ER) | payer SELFPAY | END 2020-03-17 14:35 | disposition left against medical advice (07) | LOC: ERS 12:40 | DX: Z53.21 Procedure and treatment not carried out due to patient leaving prior to being seen by health care provider (principal) ==

== ENCOUNTER 2020-03-18 04:24 | Emergency (ER) | payer SELFPAY | END 2020-03-18 05:55 | disposition home or self-care (01) | LOC: ERS 04:24 | DX: Z43.3 Encounter for attention to colostomy (principal); F17.210 Nicotine dependence, cigarettes, uncomplicated | CPT/HCPCS: 99282 ==

== ENCOUNTER 2020-05-02 10:48 | Outpatient (CLI) | payer OTHER, SELFPAY ==
--- NOTE | 2020-05-02 14:44 | PET ---
Radionucleotide PET scan with CT attenuation correction HISTORY: Anal carcinoma. Initial Staging. COMPARISON: Correlated with CT abdomen and pelvis 02/18/2020. FINDINGS: Increased radiotracer uptake associated with the large, infiltrating anal and perianal mass extends as far superiorly approach to approach the urinary bladder base at the level of the upper vagina. Max SUV 16.4. The 1.3 cm right internal iliac chain lymph node at the level of the lower uterine segment shows norm al activity. Within a left inguinal 1.7 cm short axis lymph node, increased uptake max SUV 5.9. Some soft tissue stranding at the right inguinal region is superficial to slightly enlarged lymph nod es. The larger 1.4 cm short axis right inguinal lymph node shows max SUV 2.5. The superiormost images show heterogeneous uptake coming from the left antecubital fossa from infiltr ation during radiotracer administration. A nonenlarged left axillary lymph node shows increased activity max SUV 8.9, consistent with lymphatic drainage from the infiltration rather than metastatic disease. CT images show calcified granulomata and lymph nodes of the chest. CT findings of the abdomen and pel vis are, in general, not significant different than the prior CT. Gallstones again demonstrated. A new left lower quadrant colostomy is present. The rectum remains distended up to 7.0 cm width by 0. 8 cm AP length. IMPRESSION : Markedly hypermetabolic activity associated with the large, irregular anal/pelvic mass. Definite dise ase and a left inguinal lymph node. Probable/borderline involvement of the right inguinal lymph node. The slightly enlarged right internal iliac lymph node is not hypermetabolic on today's exam. No left lower quadrant colostomy. Persistent fecal distention of the rectum. Cholelithiasis.
== END 2020-05-02 10:49 | disposition home or self-care (01) ==
LOC: PET 10:48
PROVIDERS: ATTEND Radiology Radiation Oncology
DX: C21.0 Malignant neoplasm of anus, unspecified (principal); R59.0 Localized enlarged lymph nodes; K80.20 Calculus of gallbladder without cholecystitis without obstruction; K56.41 Fecal impaction
CPT/HCPCS: 78815; A9552

== ENCOUNTER 2020-05-04 15:04 | Day surgery (SDC) | payer OTHER, SELFPAY ==
[~2020-05-04 15:04] MED LIST changes: +Ferumoxytol (NON ERSD) 510 MG in Sodium Chloride 0.9% 150 ML IVPB SCH; -Iopamidol-370 76% 500 ML 1 ML ONE; +MITOMYCIN IV SCH; +PALONOSETRON HCL 0.05 MG/ML 5 ML VIAL IVP SCH; +SODIUM CHLORIDE 0.9% IV SCH
[2020-05-04 15:28] VITALS: BP 116/56; TEMP 97.6
== END 2020-05-04 16:56 | disposition home or self-care (01) ==
LOC: ONC/OP 15:04
PROVIDERS: ATTEND Internal Medicine Hematology & Oncology
DX: Z51.11 Encounter for antineoplastic chemotherapy (principal); C21.0 Malignant neoplasm of anus, unspecified; D50.0 Iron deficiency anemia secondary to blood loss (chronic)
CPT/HCPCS: 96367; 96375; 96413; J2469; J3490; J9280; Q0138

== ENCOUNTER 2020-05-11 13:21 | Day surgery (SDC) | payer OTHER, SELFPAY ==
[~2020-05-11 13:21] MED LIST changes: -Ferumoxytol (NON ERSD) 510 MG in Sodium Chloride 0.9% 150 ML IVPB SCH; +Ferumoxytol (NON ERSD) 510 MG in Sodium Chloride 0.9% 250 ML 150 ML IVPB SCH; -MITOMYCIN IV SCH; -PALONOSETRON HCL 0.05 MG/ML 5 ML VIAL IVP SCH; -SODIUM CHLORIDE 0.9% IV SCH
[2020-05-11 15:16] VITALS: BP 126/60; TEMP 97.7
== END 2020-05-11 15:24 | disposition home or self-care (01) ==
LOC: ONC/OP 13:21
PROVIDERS: ATTEND Internal Medicine Hematology & Oncology
DX: D50.0 Iron deficiency anemia secondary to blood loss (chronic) (principal); C21.0 Malignant neoplasm of anus, unspecified
CPT/HCPCS: 96365; J7050; Q0138

== ENCOUNTER 2020-05-18 13:52 | Day surgery (SDC) | payer OTHER, SELFPAY ==
[~2020-05-18 13:52] MED LIST changes: +FERUMOXYTOL IVPB SCH; +Ferumoxytol (ERSD) 510 MG in Sodium Chloride 0.9% 250 ML 150 ML IVPB SCH; -Ferumoxytol (NON ERSD) 510 MG in Sodium Chloride 0.9% 250 ML 150 ML IVPB SCH; +SODIUM CHLORIDE 0.9% IVPB SCH; +Sodium Chloride 0.9% 20 ML ONE
[2020-05-18 14:35] VITALS: BP 108/58; TEMP 98.2
== END 2020-05-18 14:35 | disposition home or self-care (01) ==
LOC: ONC/OP 13:52
PROVIDERS: ATTEND Internal Medicine Hematology & Oncology
DX: D50.0 Iron deficiency anemia secondary to blood loss (chronic) (principal); C21.0 Malignant neoplasm of anus, unspecified
CPT/HCPCS: 96365; J1642; J7050; Q0139

== ENCOUNTER 2020-05-29 15:26 | Emergency (ER) | payer OTHER, SELFPAY ==
[~2020-05-29 15:26] MED LIST changes: -FERUMOXYTOL IVPB SCH; -Ferumoxytol (ERSD) 510 MG in Sodium Chloride 0.9% 250 ML 150 ML IVPB SCH; +Iopamidol 370 76% 100 ML VIAL ONE; -SODIUM CHLORIDE 0.9% IVPB SCH; -Sodium Chloride 0.9% 20 ML ONE
[2020-05-29 17:06] LABS: #Eosinphils 0.1 thou/uL (0.0-0.7); #Lymphocytes 0.4 thou/uL (1.20-3.40); #Monocytes 0.4 thou/uL (0.11-0.59); #Neutrophils 3.4 thou/uL (1.40-6.50); %Basophils 0.3 % (0.0-1.0); %Lymphocytes 9.8 % (21.0-51.0); %Monocytes 9.8 % (0.0-10.0); %Neutrophils 78.1 % (42.0-75.0); Hemoglobin 12.2 g/dL (12.0-16.0); Mean Corpuscular HGB CONC 32.1 g/dL (32.0-36.0); Mean Corpuscular Hemoglobin 27.1 pg (27.0-31.0); Mean Corpuscular Volume 84.6 fL (78.0-98.0); Mean Platelet Volume 8.4 fL (7.4-10.4); Platelet Count 268 thou/uL (130-400); Red Blood Cell (RBC) Count 4.51 mill/uL (4.20-5.40); White Blood Cell (WBC) Count 4.3 thou/uL (4.8-10.8)
[2020-05-29 17:23] LABS: Anisocytosis SLIGHT = 6-15 cells (100X) (0-5/hpf); MDiff Complete? YES; Ovalocytes SLIGHT = 2-5 cells (100X) (0-1/hpf); Platelet Morphology Comment Appears Adequate; Polychromasia SLIGHT = 2-3 cells (100X) (0-2/hpf)
--- NOTE | 2020-05-29 17:34 | RAD ---
PORTABLE CHEST ONE VIEW: Date: 05-29-2020 Time: 4:43 p.m. History: Weakness. Malignant neoplasm of rectum. Comparison: 02-25-2020 FINDINGS: Right sided [id number]-[id number] remains in place. The heart size is normal. The aorta is tortuous. The cierra ngs are well expanded without lobar consolidation, pneumothoraces or pleural effusions. IMPRESSION: No acute process. POS: OFF
[2020-05-29 17:44] LABS: ALT (SGPT) 7 U/L (8-55); AST (SGOT) 10 U/L (5-34); Albumin 2.8 g/dL (3.4-4.8); Alkaline Phosphatase 117 U/L (40-110); Anion Gap 17 mmol/L (10-20); BUN (Urea Nitrogen) 13 mg/dL (9.8-20.1); Bilirubin, Total 0.4 mg/dL (0.2-1.2); Calc. Creatinine Clearance 0 mL/min (70-130); Calcium 8.3 mg/dL (7.8-10.44); Carbon Dioxide 21 mmol/L (23-31); Chloride 104 mmol/L (98-107); Globulin 4.2 g/dL (2.4-3.5); Glucose 98 mg/dL (80-115); Potassium 3.8 mmol/L (3.5-5.1); Sodium 138 mmol/L (136-145)
--- NOTE | 2020-05-29 18:39 | CT ---
CTA Angio Chest W WO Con 05/29/2020 6:15 PM Indication: History of dyspnea and colon cancer Technique: Multiple CTA images were obtained of the thorax with IV contrast. 3-D rendering: MIP joselin nstructed images were created and reviewed. Comparison: No relevant prior studies available. Findings: Pulmonary arteries: No central or segmental pulmonary embolus is evident. Heart and Aorta: Normal appearing. Mediastinum:Normal appearing. No enlarged lymph nodes. Lungs:There is scattered emphysema. There is a calcified granuloma within the left upper lobe. No con fluent airspace opacity is evident. Pleural space: Clear. Upper Abdomen: There is a stable nodular prominence of the left adrenal body when compared to a prio r CT abdomen pelvis dated February 18, 2020 measuring 1 cm. This is incompletely characterized current examination. Osseous Structures: There is scattered degenerative and osteoarthritic change present. Soft tissues:There is a right IJ chest wall port in place. Other findings:None. Impression: 1. No central or segmental pulmonary metastases. 2. Mild scattered emphysema. 3. Stable left adrenal nodule. This is incompletely characterized on the current examination. A nonem ergent follow-up CT of the abdomen utilizing adrenal mass protocol with and without contrast would be helpful.
== END 2020-05-29 19:28 | disposition home or self-care (01) ==
LOC: ERS 15:26
DX: E86.0 Dehydration (principal); E27.8 Other specified disorders of adrenal gland; J44.9 Chronic obstructive pulmonary disease, unspecified; F17.210 Nicotine dependence, cigarettes, uncomplicated; Z79.899 Other long term (current) drug therapy
CPT/HCPCS: 36415; 71045; 71275; 80053; 84484; 85025; 85379; 93005; Q9967

== ENCOUNTER 2020-06-05 13:25 | Day surgery (SDC) | payer OTHER, SELFPAY ==
[~2020-06-05 13:25] MED LIST changes: -Iopamidol 370 76% 100 ML VIAL ONE; +MITOMYCIN IV SCH; +PALONOSETRON HCL 0.05 MG/ML 5 ML VIAL IVP SCH; +SODIUM CHLORIDE 0.9% IV SCH
[2020-06-05] MEDS ORDERED: Sodium Chloride 0.9% 20 ML ONE (13:29)
[2020-06-05 13:36] VITALS: BP 114/60
[2020-06-05] MEDS ORDERED: SODIUM CHLORIDE 0.9% IV SCH (14:15)
[2020-06-05] MEDS ORDERED: MITOMYCIN IV SCH (14:15)
== END 2020-06-05 15:28 | disposition home or self-care (01) ==
LOC: ONC/OP 13:25
PROVIDERS: ATTEND Internal Medicine Hematology & Oncology
DX: Z51.11 Encounter for antineoplastic chemotherapy (principal); C21.0 Malignant neoplasm of anus, unspecified; D50.0 Iron deficiency anemia secondary to blood loss (chronic)
CPT/HCPCS: 96375; 96409; J2469; J3490; J9280

== ENCOUNTER 2020-06-13 14:50 | Inpatient (IN) | payer OTHER ==
[2020-06-13] MEDS ORDERED: Magnesium 2 GM/50 ML BAG (IN WATER) ONE (16:17)
[2020-06-13 16:29] LABS: #Lymphocytes 0.3 thou/uL (1.20-3.40); #Monocytes 0.1 thou/uL (0.11-0.59); #Neutrophils 1.7 thou/uL (1.40-6.50); %Eosinophils 1.2 % (0.0-10.0); %Lymphocytes 12.9 % (21.0-51.0); %Monocytes 3.3 % (0.0-10.0); %Neutrophils 82.5 % (42.0-75.0); Hemoglobin 13.6 g/dL (12.0-16.0); Mean Corpuscular HGB CONC 33.2 g/dL (32.0-36.0); Mean Corpuscular Hemoglobin 28.4 pg (27.0-31.0); Mean Corpuscular Volume 85.4 fL (78.0-98.0); Mean Platelet Volume 11.8 fL (7.4-10.4); Platelet Count 48 thou/uL (130-400); Red Blood Cell (RBC) Count 4.78 mill/uL (4.20-5.40); White Blood Cell (WBC) Count 2.1 thou/uL (4.8-10.8)
[2020-06-13 16:43] LABS: Anisocytosis SLIGHT = 6-15 cells (100X) (0-5/hpf); MDiff Complete? YES; Platelet Morphology Comment Appears Decreased
[2020-06-13 16:48] LABS: ALT (SGPT) 7 U/L (8-55); AST (SGOT) 11 U/L (5-34); Albumin 3.3 g/dL (3.4-4.8); Alkaline Phosphatase 124 U/L (40-110); Anion Gap 24 mmol/L (10-20); BUN (Urea Nitrogen) 26 mg/dL (9.8-20.1); Bilirubin, Total 0.8 mg/dL (0.2-1.2); Calc. Creatinine Clearance 0 mL/min (70-130); Calcium 8.9 mg/dL (7.8-10.44); Carbon Dioxide 21 mmol/L (23-31); Chloride 95 mmol/L (98-107); Globulin 4.4 g/dL (2.4-3.5); Glucose 211 mg/dL (80-115); Magnesium 1.8 mg/dL (1.6-2.6); Potassium 3.7 mmol/L (3.5-5.1); Protein, Total 7.7 g/dL (5.8-8.1); Sodium 136 mmol/L (136-145)
[2020-06-13] MEDS ORDERED: Piperacillin/Tazobactam 4.5 GM VIAL ONE (17:05)
[2020-06-13 17:09] LABS: Bacteria/HPF None Seen HPF (None Seen); Bilirubin 1+ (Negative); Blood, Urine Trace (Negative); Clarity Turbid (Clear); Glucose, Urine (Dipstick) Normal (Negative); Ketone, Urine 10 mg/dL (Negative); Leukocyte 250 Leu/uL (Negative); Nitrite Negative (Negative); Protein, Urine (Dipstick) 100 mg/dL (Neg-Trace); RBC/HPF 0-3 HPF (0-3); Specific Gravity, Urine 1.021 (1.002-1.036); Squamous Epithelial None Seen HPF (0-3); WBC/HPF 21-50 HPF (0-3); pH, Urine 5.5 (5.0-9.0)
[2020-06-13] MEDS ORDERED: VANCOMYCIN 1.75 GM/350 ML BAG 1.75 GM in Premix Bag 1 BAG IVPB SCH (17:15)
[2020-06-13 17:21] LABS: Analyzer IN Cardio ER; Base Excess (BEa) -2.2 mEq/L (-2.0 to +3.0); CO2 Tension 27.3 mmHg (35.0-45.0); Calcium, Ionized (arterial) 1.09 mmol/L (1.12-1.30); Carboxyhemoglobin (COHb) 0.2 gm% (0.0-3.0); Hemoglobin (Hb) 12.2 g/dL (12.0-16.0); O2 Tension (PaO2), arterial 62.6 mmHg (> 80.0); Potassium - ABG Lab 3.11 mmol/L (3.70-5.30); pH, Arterial 7.48 (7.35-7.45)
[2020-06-13 17:35] LABS: Puncture Site RBA
[2020-06-13 17:36] LABS: ALV-art Gradient 53.005 mmHg (0-20)
[2020-06-13 18:00] LABS: PTT 27.3 sec (22.9-36.1); Prothrombin Time 13.4 sec (12.0-14.7)
[2020-06-13] MEDS ORDERED: Acetaminophen 325 MG TAB PO PRN (20:30)
[2020-06-13] MEDS ORDERED: Morphine 4 MG/ML VIAL SLOW IVP PRN (20:30)
[2020-06-13] MEDS ORDERED: Ondansetron PF 4 MG/2 ML Vial IVP PRN (20:30)
[2020-06-13] MEDS ORDERED: Ondansetron ODT 4 MG TAB SL PRN (20:30)
[2020-06-13 21:08] LABS: Lactic Acid 2.4 mmol/L (0.5-2.2)
[2020-06-13] MEDS: Lactated Ringer's 1,000 ML IV SCH (22:54)
[2020-06-13] MEDS ORDERED: Piperacillin/Tazobactam 3.375 GM in Sodium Chloride 0.9% 100 ML IVPB SCH (23:59)
[2020-06-14] MEDS: Cefepime 1 GM in Sodium Chloride 0.9% 100 ML IVPB SCH ×2 (01:33→13:51)
[2020-06-14] MEDS: Lactated Ringer's 1,000 ML IV SCH (05:15)
[2020-06-14 09:40] LABS: SARS-CoV-2 PCR by NAA Not Detected (NotDetected)
[2020-06-14] MEDS: Sodium Chloride 0.9% 1,000 ML IV SCH ×2 (09:49→23:01)
[2020-06-14 15:24] LABS: Mean Corpuscular HGB CONC 33.1 g/dL (32.0-36.0); Mean Corpuscular Hemoglobin 28.4 pg (27.0-31.0); Mean Corpuscular Volume 86.1 fL (78.0-98.0); Mean Platelet Volume 12.7 fL (7.4-10.4); Platelet Count 27 thou/uL (130-400); RBC Distribution Width 20.5 % (11.5-14.5); Red Blood Cell (RBC) Count 3.51 mill/uL (4.20-5.40)
[2020-06-14] MEDS ORDERED: Ondansetron HCl/PF 8 MG in Sodium Chloride 0.9% 50 ML IVPB PRN (15:42)
[2020-06-14] MEDS ORDERED: HYDROcodone/Acetaminophen 5/325 mg Tablet PO PRN (15:45)
[2020-06-14 16:03] LABS: Anisocytosis SLIGHT = 6-15 cells (100X) (0-5/hpf); Band 2 % (5-11); Eosinophils 2 % (0-10); Lymphocytes 16 % (21-51); MDiff Complete? YES; Monocytes 7 % (0-10); Neutrophil 72 % (42-75); Ovalocytes SLIGHT = 2-5 cells (100X) (0-1/hpf); Platelet Morphology Comment Appears Decreased; Polychromasia SLIGHT = 2-3 cells (100X) (0-2/hpf)
[2020-06-14 16:52] LABS: ALT (SGPT) Less than 7 U/L (8-55); AST (SGOT) 10 U/L (5-34); Albumin 2.4 g/dL (3.4-4.8); Alkaline Phosphatase 85 U/L (40-110); Anion Gap 16 mmol/L (10-20); BUN (Urea Nitrogen) 20 mg/dL (9.8-20.1); Bilirubin, Total 0.4 mg/dL (0.2-1.2); Calc. Creatinine Clearance 65 mL/min (70-130); Calcium 7.6 mg/dL (7.8-10.44); Carbon Dioxide 18 mmol/L (23-31); Chloride 105 mmol/L (98-107); Globulin 3.3 g/dL (2.4-3.5); Glucose 77 mg/dL (80-115); Protein, Total 5.7 g/dL (5.8-8.1); Sodium 136 mmol/L (136-145)
[2020-06-14] MEDS ORDERED: Vancomycin 1 GM in Premix Bag 1 BAG IVPB SCH (20:00)
[2020-06-14] MEDS: Mirtazapine 30 MG TAB PO SCH (20:56)
[2020-06-14] MEDS ORDERED: FLU VACC QS2020-21(6MOS UP)/PF 60 MCG/0.5 ML SYRINGE IM ONE (21:00)
[2020-06-15] MEDS: Cefepime 1 GM in Sodium Chloride 0.9% 100 ML IVPB SCH ×2 (01:10→13:03)
[2020-06-15 04:30] VITALS: BMI 25.5
[2020-06-15 04:54] LABS: Mean Corpuscular HGB CONC 32.3 g/dL (32.0-36.0); Mean Corpuscular Hemoglobin 27.7 pg (27.0-31.0); Mean Corpuscular Volume 85.7 fL (78.0-98.0); Mean Platelet Volume 12.1 fL (7.4-10.4); Platelet Count 24 thou/uL (130-400); RBC Distribution Width 20.4 % (11.5-14.5); Red Blood Cell (RBC) Count 3.26 mill/uL (4.20-5.40); White Blood Cell (WBC) Count 0.7 thou/uL (4.8-10.8)
[2020-06-15 05:05] LABS: ALT (SGPT) 7 U/L (8-55); AST (SGOT) 11 U/L (5-34); Albumin 2.2 g/dL (3.4-4.8); Alkaline Phosphatase 81 U/L (40-110); Anion Gap 13 mmol/L (10-20); BUN (Urea Nitrogen) 14 mg/dL (9.8-20.1); Bilirubin, Total 0.3 mg/dL (0.2-1.2); Calc. Creatinine Clearance 83 mL/min (70-130); Calcium 7.4 mg/dL (7.8-10.44); Carbon Dioxide 19 mmol/L (23-31); Chloride 108 mmol/L (98-107); Globulin 3.1 g/dL (2.4-3.5); Glucose 70 mg/dL (80-115); Protein, Total 5.3 g/dL (5.8-8.1); Sodium 137 mmol/L (136-145)
[2020-06-15 05:06] LABS: Potassium 2.8 mmol/L (3.5-5.1)
[2020-06-15 05:11] LABS: #Lymphocytes 0.2 thou/uL (1.20-3.40); #Monocytes 0.1 thou/uL (0.11-0.59); #Neutrophils 0.4 thou/uL (1.40-6.50); %Eosinophils 4.3 % (0.0-10.0); %Lymphocytes 25.2 % (21.0-51.0); %Monocytes 9.9 % (0.0-10.0); %Neutrophils 60.6 % (42.0-75.0)
[2020-06-15 05:12] LABS: Band 4 % (5-11); Eosinophils 4 % (0-10); Lymphocytes 12 % (21-51); MDiff Complete? YES; Monocytes 16 % (0-10); Neutrophil 64 % (42-75); Platelet Morphology Comment Appears Decreased
[2020-06-15] MEDS ORDERED: Potassium Chloride 20 MEQ in Premix Bag 1 BAG IVPB SCH (05:15)
[2020-06-15] MEDS: Potassium Chloride 20 MEQ TAB PO SCH ×2 (06:14→06:19)
[2020-06-15] MEDS: Sodium Chloride 0.9% 1,000 ML IV SCH (13:02)
[2020-06-15] MEDS ORDERED: Potassium Chloride 20 MEQ TAB PO SCH (15:00)
[2020-06-15] MEDS: HYDROcodone/Acetaminophen 5/325 mg Tablet PO PRN ×2 (15:39→20:44)
[2020-06-15] MEDS: Mirtazapine 30 MG TAB PO SCH (20:41)
[2020-06-16] MEDS: Sodium Chloride 0.9% 1,000 ML IV SCH ×2 (00:03→15:34)
[2020-06-16 07:49] LABS: Hemoglobin 9.5 g/dL (12.0-16.0); Mean Corpuscular HGB CONC 34.2 g/dL (32.0-36.0); Mean Corpuscular Hemoglobin 29.4 pg (27.0-31.0); Mean Platelet Volume 13.4 fL (7.4-10.4); Platelet Count 16 thou/uL (130-400); RBC Distribution Width 20.5 % (11.5-14.5); Red Blood Cell (RBC) Count 3.24 mill/uL (4.20-5.40); White Blood Cell (WBC) Count 0.5 thou/uL (4.8-10.8)
[2020-06-16] MEDS: HYDROcodone/Acetaminophen 5/325 mg Tablet PO PRN ×3 (07:57→16:53)
[2020-06-16] MEDS ORDERED: Activase 2 MG VIAL CATH SCH (08:00)
[2020-06-16] MEDS ORDERED: Sterile Water 10 ML VIAL IVP SCH (08:00)
[2020-06-16 08:09] LABS: ALT (SGPT) Less than 7 U/L (8-55); AST (SGOT) 11 U/L (5-34); Albumin 2.3 g/dL (3.4-4.8); Alkaline Phosphatase 81 U/L (40-110); Anion Gap 13 mmol/L (10-20); BUN (Urea Nitrogen) 8 mg/dL (9.8-20.1); Bilirubin, Total 0.3 mg/dL (0.2-1.2); Calc. Creatinine Clearance 95 mL/min (70-130); Calcium 7.6 mg/dL (7.8-10.44); Carbon Dioxide 20 mmol/L (23-31); Chloride 110 mmol/L (98-107); Globulin 3.1 g/dL (2.4-3.5); Glucose 79 mg/dL (80-115); Magnesium 1.7 mg/dL (1.6-2.6); Potassium 3.1 mmol/L (3.5-5.1); Protein, Total 5.4 g/dL (5.8-8.1); Sodium 140 mmol/L (136-145)
[2020-06-16 08:15] LABS: MDiff Complete? YES; Platelet Morphology Comment Appears Decreased; Polychromasia SLIGHT = 2-3 cells (100X) (0-2/hpf)
[2020-06-16] MEDS: Silver Sulfadiazine 50 GM JAR TP SCH (15:26)
[2020-06-16] MEDS: Potassium Chloride 20 MEQ TAB PO SCH ×2 (18:25→21:37)
[2020-06-16] MEDS: Mirtazapine 30 MG TAB PO SCH (21:37)
[2020-06-17 06:11] LABS: Hemoglobin 8.9 g/dL (12.0-16.0); Mean Corpuscular Hemoglobin 28.1 pg (27.0-31.0); Mean Corpuscular Volume 85.1 fL (78.0-98.0); RBC Distribution Width 20.2 % (11.5-14.5); Red Blood Cell (RBC) Count 3.18 mill/uL (4.20-5.40); White Blood Cell (WBC) Count 0.6 thou/uL (4.8-10.8)
[2020-06-17 06:22] LABS: ALT (SGPT) 7 U/L (8-55); AST (SGOT) 9 U/L (5-34); Albumin 2.3 g/dL (3.4-4.8); Alkaline Phosphatase 87 U/L (40-110); Anion Gap 13 mmol/L (10-20); BUN (Urea Nitrogen) 6 mg/dL (9.8-20.1); Bilirubin, Total 0.3 mg/dL (0.2-1.2); Calc. Creatinine Clearance 104 mL/min (70-130); Calcium 7.8 mg/dL (7.8-10.44); Carbon Dioxide 19 mmol/L (23-31); Chloride 110 mmol/L (98-107); Globulin 3.1 g/dL (2.4-3.5); Glucose 70 mg/dL (80-115); Magnesium 1.7 mg/dL (1.6-2.6); Potassium 3.8 mmol/L (3.5-5.1); Protein, Total 5.4 g/dL (5.8-8.1); Sodium 138 mmol/L (136-145)
[2020-06-17 06:33] LABS: Band 5 % (5-11); Eosinophils 10 % (0-10); Lymphocytes 30 % (21-51); MDiff Complete? YES; Mean Platelet Volume 15.7 fL (7.4-10.4); Monocytes 5 % (0-10); Neutrophil 50 % (42-75); Nucleated RBC 2 % (0); Platelet Count 13 thou/uL (130-400); Platelet Morphology Comment Appears Decreased
[2020-06-17 10:45] LABS: Phosphorus 2.2 mg/dL (2.3-4.7)
[2020-06-17] MEDS: HYDROcodone/Acetaminophen 5/325 mg Tablet PO PRN ×2 (11:37→21:59)
[2020-06-17] MEDS: Silver Sulfadiazine 50 GM JAR TP SCH (11:48)
[2020-06-17] MEDS ORDERED: Magnesium 2 GM/50 ML 2 GM in Premix Bag 1 BAG IVPB SCH (12:00)
[2020-06-17] MEDS: K-Phos Neutral 250 MG TAB PO SCH ×2 (12:49→18:46)
[2020-06-17] MEDS: Mirtazapine 30 MG TAB PO SCH (21:55)
[2020-06-18] MEDS ORDERED: Sterile Water 10 ML VIAL IVP SCH (06:00)
[2020-06-18] MEDS ORDERED: Activase 2 MG VIAL CATH SCH (06:00)
[2020-06-18] MEDS: K-Phos Neutral 250 MG TAB PO SCH ×3 (08:34→17:16)
[2020-06-18 08:35] LABS: Hemoglobin 8.5 g/dL (12.0-16.0); Mean Corpuscular HGB CONC 33.6 g/dL (32.0-36.0); Mean Corpuscular Hemoglobin 28.6 pg (27.0-31.0); Mean Corpuscular Volume 85.1 fL (78.0-98.0); Mean Platelet Volume 10.6 fL (7.4-10.4); Phosphorus 2.5 mg/dL (2.3-4.7); Platelet Count 33 thou/uL (130-400); RBC Distribution Width 20.5 % (11.5-14.5); Red Blood Cell (RBC) Count 2.97 mill/uL (4.20-5.40); White Blood Cell (WBC) Count 0.6 thou/uL (4.8-10.8)
[2020-06-18 08:36] LABS: Anion Gap 12 mmol/L (10-20); BUN (Urea Nitrogen) 6 mg/dL (9.8-20.1); Calc. Creatinine Clearance 101 mL/min (70-130); Calcium 7.6 mg/dL (7.8-10.44); Carbon Dioxide 20 mmol/L (23-31); Chloride 109 mmol/L (98-107); Glucose 69 mg/dL (80-115); Magnesium 1.9 mg/dL (1.6-2.6); Potassium 3.3 mmol/L (3.5-5.1); Sodium 138 mmol/L (136-145)
[2020-06-18] MEDS: HYDROcodone/Acetaminophen 5/325 mg Tablet PO PRN ×3 (09:04→21:55)
[2020-06-18] MEDS: Silver Sulfadiazine 50 GM JAR TP SCH (09:42)
[2020-06-18] MEDS: Mirtazapine 30 MG TAB PO SCH (21:55)
[2020-06-19 06:03] LABS: Anion Gap 11 mmol/L (10-20); BUN (Urea Nitrogen) 5 mg/dL (9.8-20.1); Calc. Creatinine Clearance 100 mL/min (70-130); Calcium 7.7 mg/dL (7.8-10.44); Carbon Dioxide 24 mmol/L (23-31); Chloride 107 mmol/L (98-107); Glucose 93 mg/dL (80-115); Magnesium 1.8 mg/dL (1.6-2.6); Sodium 139 mmol/L (136-145)
[2020-06-19 06:13] LABS: Hemoglobin 8.5 g/dL (12.0-16.0); Mean Corpuscular HGB CONC 33.5 g/dL (32.0-36.0); Mean Corpuscular Hemoglobin 28.4 pg (27.0-31.0); Mean Corpuscular Volume 84.9 fL (78.0-98.0); Mean Platelet Volume 11.2 fL (7.4-10.4); Platelet Count 26 thou/uL (130-400); RBC Distribution Width 20.3 % (11.5-14.5); Red Blood Cell (RBC) Count 2.99 mill/uL (4.20-5.40); White Blood Cell (WBC) Count 0.4 thou/uL (4.8-10.8)
[2020-06-19 06:42] LABS: Anisocytosis SLIGHT = 6-15 cells (100X) (0-5/hpf); MDiff Complete? YES; Platelet Morphology Comment Appears Decreased
[2020-06-19 06:56] LABS: Phosphorus 3.2 mg/dL (2.3-4.7)
[2020-06-19] MEDS ORDERED: Senokot S 8.6-50 MG TAB PO PRN (07:25)
[2020-06-19] MEDS ORDERED: Bisacodyl 10 MG SUPP PR PRN (07:25)
[2020-06-19] MEDS ORDERED: GUAIFENESIN SF SOLN 200 MG/10 ML UDCUP PO PRN (07:25)
[2020-06-19] MEDS ORDERED: hydrALAZINE 20 MG/ML VIAL SLOW IVP PRN (07:25)
[2020-06-19] MEDS ORDERED: Calcium Carbonate 500 MG ChewTAB PO PRN (07:25)
[2020-06-19] MEDS ORDERED: Zolpidem Tartrate 5 MG TAB PO PRN (07:25)
[2020-06-19] MEDS ORDERED: Sodium Chloride 0.65% Nasal 44 ML BOT EA NARE PRN (07:25)
[2020-06-19] MEDS ORDERED: Loratadine 10 MG TAB PO PRN (07:25)
[2020-06-19] MEDS ORDERED: Loperamide HCl 2 MG CAP PO PRN (07:25)
[2020-06-19] MEDS ORDERED: Benzonatate 100 MG CAP PO PRN (07:25)
[2020-06-19] MEDS ORDERED: Cepastat Lozenges 1 LOZ PO PRN (07:25)
[2020-06-19] MEDS ORDERED: Nystatin Powder 15 GM BOT TOP PRN (07:26)
[2020-06-19] MEDS ORDERED: Acetaminophen 325 MG TAB PO PRN (07:47)
[2020-06-19] MEDS: Famotidine 20 MG TAB PO SCH ×2 (08:33→20:15)
[2020-06-19] MEDS: K-Phos Neutral 250 MG TAB PO SCH ×2 (08:33→12:59)
[2020-06-19] MEDS: Silver Sulfadiazine 50 GM JAR TP SCH (08:42)
[2020-06-19] MEDS: HYDROcodone/Acetaminophen 5/325 mg Tablet PO PRN ×3 (08:48→23:59)
[2020-06-19] MEDS: Mirtazapine 30 MG TAB PO SCH (20:14)
[2020-06-20] MEDS: HYDROcodone/Acetaminophen 5/325 mg Tablet PO PRN ×3 (06:13→22:06)
[2020-06-20 06:41] LABS: ALT (SGPT) Less than 7 U/L (8-55); AST (SGOT) 6 U/L (5-34); Albumin 2.2 g/dL (3.4-4.8); Alkaline Phosphatase 88 U/L (40-110); Anion Gap 10 mmol/L (10-20); BUN (Urea Nitrogen) 5 mg/dL (9.8-20.1); Bilirubin, Total 0.4 mg/dL (0.2-1.2); Calc. Creatinine Clearance 94 mL/min (70-130); Calcium 7.7 mg/dL (7.8-10.44); Carbon Dioxide 27 mmol/L (23-31); Chloride 107 mmol/L (98-107); Glucose 82 mg/dL (80-115); Protein, Total 5.2 g/dL (5.8-8.1); Sodium 141 mmol/L (136-145)
[2020-06-20 06:49] LABS: Potassium 2.8 mmol/L (3.5-5.1)
[2020-06-20 06:53] LABS: Hemoglobin 8.2 g/dL (12.0-16.0); Mean Corpuscular HGB CONC 34.1 g/dL (32.0-36.0); Mean Corpuscular Hemoglobin 28.8 pg (27.0-31.0); Mean Corpuscular Volume 84.5 fL (78.0-98.0); Mean Platelet Volume 12.6 fL (7.4-10.4); Platelet Count 18 thou/uL (130-400); RBC Distribution Width 20.1 % (11.5-14.5); Red Blood Cell (RBC) Count 2.86 mill/uL (4.20-5.40); White Blood Cell (WBC) Count 0.6 thou/uL (4.8-10.8)
[2020-06-20 08:00] LABS: Band 5 % (5-11); Eosinophils 5 % (0-10); Lymphocytes 15 % (21-51); MDiff Complete? YES; Monocytes 10 % (0-10); Neutrophil 65 % (42-75); Platelet Morphology Comment Appears Decreased; Polychromasia SLIGHT = 2-3 cells (100X) (0-2/hpf)
[2020-06-20] MEDS: Famotidine 20 MG TAB PO SCH ×2 (09:11→21:04)
[2020-06-20] MEDS: Silver Sulfadiazine 50 GM JAR TP SCH (09:12)
[2020-06-20] MEDS: Potassium Chloride 20 MEQ TAB PO SCH ×2 (09:13→17:36)
[2020-06-20] MEDS: Potassium Chloride 10 MEQ in Premix Bag 1 BAG IVPB SCH ×4 (09:14→20:52)
[2020-06-20] MEDS: Mirtazapine 30 MG TAB PO SCH (20:52)
[2020-06-21] MEDS: Potassium Chloride 10 MEQ in Premix Bag 1 BAG IVPB SCH ×3 (00:09→10:03)
[2020-06-21 05:16] LABS: Anion Gap 11 mmol/L (10-20); BUN (Urea Nitrogen) 5 mg/dL (9.8-20.1); Calc. Creatinine Clearance 96 mL/min (70-130); Calcium 7.7 mg/dL (7.8-10.44); Carbon Dioxide 23 mmol/L (23-31); Chloride 108 mmol/L (98-107); Glucose 78 mg/dL (80-115); Magnesium 1.5 mg/dL (1.6-2.6); Potassium 3.9 mmol/L (3.5-5.1); Sodium 138 mmol/L (136-145)
[2020-06-21 05:55] LABS: #Lymphocytes 0.2 thou/uL (1.20-3.40); #Monocytes 0.1 thou/uL (0.11-0.59); #Neutrophils 0.4 thou/uL (1.40-6.50); %Basophils 0.8 % (0.0-1.0); %Eosinophils 5.7 % (0.0-10.0); %Lymphocytes 27.8 % (21.0-51.0); %Monocytes 7.3 % (0.0-10.0); %Neutrophils 58.4 % (42.0-75.0); Anisocytosis SLIGHT = 6-15 cells (100X) (0-5/hpf); Hemoglobin 7.7 g/dL (12.0-16.0); MDiff Complete? YES; Mean Corpuscular Hemoglobin 28.9 pg (27.0-31.0); Mean Corpuscular Volume 85.2 fL (78.0-98.0); Mean Platelet Volume 9.3 fL (7.4-10.4); Platelet Count 42 thou/uL (130-400); Platelet Morphology Comment Appears Decreased; RBC Distribution Width 20.3 % (11.5-14.5); Red Blood Cell (RBC) Count 2.67 mill/uL (4.20-5.40); White Blood Cell (WBC) Count 0.6 thou/uL (4.8-10.8)
[2020-06-21] MEDS ORDERED: Magnesium 2 GM/50 ML 2 GM in Premix Bag 1 BAG IVPB SCH (07:30)
[2020-06-21 08:33] VITALS: BP 116/54
[2020-06-21] MEDS: Silver Sulfadiazine 50 GM JAR TP SCH (08:40)
[2020-06-21] MEDS: Famotidine 20 MG TAB PO SCH (08:42)
[2020-06-21] MEDS: Potassium Chloride 20 MEQ TAB PO SCH ×2 (08:42→18:12)
[2020-06-21] MEDS ORDERED: Magnesium Oxide 400 MG TAB PO SCH (09:00)
[2020-06-21] MEDS: HYDROcodone/Acetaminophen 5/325 mg Tablet PO PRN ×2 (10:02→15:40)
[2020-06-21 18:15] VITALS: TEMP 98.3
== END 2020-06-21 18:50 | disposition home or self-care (01) | DRG 871 ==
LOC: ERS 14:50 → 2NO 17:59 → ONC 06-15 17:38
PROVIDERS: ADMIT Internal Medicine; ATTEND Emergency Medicine
PROC: DDY Radiation Therapy, Gastrointestinal System, Other Radiation (ICD-10-PCS; 2020-06-14)
PROC: 30233R1 Transfusion of Nonautologous Platelets into Peripheral Vein, Percutaneous Approach (ICD-10-PCS; principal; 2020-06-17)
DX: A41.9 Sepsis, unspecified organism (principal); D61.810 Antineoplastic chemotherapy induced pancytopenia; C21.0 Malignant neoplasm of anus, unspecified; N17.9 Acute kidney failure, unspecified; E87.2 Acidosis; C77.5 Secondary and unspecified malignant neoplasm of intrapelvic lymph nodes; R65.20 Severe sepsis without septic shock; Z20.822 Contact with and (suspected) exposure to COVID-19; T45.1X5A Adverse effect of antineoplastic and immunosuppressive drugs, initial encounter; E87.6 Hypokalemia; E83.42 Hypomagnesemia; E83.39 Other disorders of phosphorus metabolism; N18.2 Chronic kidney disease, stage 2 (mild); F41.9 Anxiety disorder, unspecified; F17.210 Nicotine dependence, cigarettes, uncomplicated; J44.9 Chronic obstructive pulmonary disease, unspecified; E86.0 Dehydration; R11.0 Nausea; R63.0 Anorexia; R63.4 Abnormal weight loss; S31.000A Unspecified open wound of lower back and pelvis without penetration into retroperitoneum, initial encounter; Z28.21 Immunization not carried out because of patient refusal; Z98.51 Tubal ligation status; Z93.3 Colostomy status; Z80.8 Family history of malignant neoplasm of other organs or systems; Z82.49 Family history of ischemic heart disease and other diseases of the circulatory system; Z88.5 Allergy status to narcotic agent; Z88.3 Allergy status to other anti-infective agents; Z68.25 Body mass index [BMI] 25.0-25.9, adult
CPT/HCPCS: 36415; 36430; 36600; 71045; 72192; 77386; 77417; 80048; 80053; 81003; 81015; 82805; 83605; 83735; 84100; 84484; 85025; 85379; 85610; 85730; 86850; 86900; 86901; 87040; 87070; 87086; 87205; 87635; 93005; 96365; 96366; 96367; J0692; J1642; J2405; J2543; J2997; J3370; J3475; J3480; J3490; P9035; U0003; U0005

== ENCOUNTER 2020-07-14 18:25 | Inpatient (IN) | payer OTHER ==
[~2020-07-14 18:25] MED LIST changes: +Iopamidol-370 76% 500 ML 1 ML ONE; -MITOMYCIN IV SCH; -PALONOSETRON HCL 0.05 MG/ML 5 ML VIAL IVP SCH; -SODIUM CHLORIDE 0.9% IV SCH
[2020-07-14 18:57] LABS: #Eosinphils 0.3 thou/uL (0.0-0.7); #Lymphocytes 1.2 thou/uL (1.20-3.40); #Monocytes 1.2 thou/uL (0.11-0.59); #Neutrophils 9.5 thou/uL (1.40-6.50); %Basophils 0.2 % (0.0-1.0); %Eosinophils 2.1 % (0.0-10.0); %Lymphocytes 9.8 % (21.0-51.0); %Monocytes 9.5 % (0.0-10.0); %Neutrophils 78.4 % (42.0-75.0); Mean Corpuscular HGB CONC 33.9 g/dL (32.0-36.0); Mean Corpuscular Hemoglobin 29.2 pg (27.0-31.0); Mean Corpuscular Volume 86.1 fL (78.0-98.0); Mean Platelet Volume 8.7 fL (7.4-10.4); Platelet Count 170 thou/uL (130-400); RBC Distribution Width 20.5 % (11.5-14.5); Red Blood Cell (RBC) Count 3.44 mill/uL (4.20-5.40); White Blood Cell (WBC) Count 12.1 thou/uL (4.8-10.8)
[2020-07-14] MEDS ORDERED: Ondansetron PF 4 MG/2 ML Vial ONE (19:06)
[2020-07-14 19:16] LABS: ALT (SGPT) Less than 7 U/L (8-55); AST (SGOT) 7 U/L (5-34); Albumin 2.9 g/dL (3.4-4.8); Alkaline Phosphatase 99 U/L (40-110); Anion Gap 19 mmol/L (10-20); BUN (Urea Nitrogen) 43 mg/dL (9.8-20.1); Bilirubin, Total 0.6 mg/dL (0.2-1.2); Calc. Creatinine Clearance 0 mL/min (70-130); Calcium 8.3 mg/dL (7.8-10.44); Carbon Dioxide 23 mmol/L (23-31); Chloride 93 mmol/L (98-107); Globulin 3.6 g/dL (2.4-3.5); Glucose 82 mg/dL (80-115); Protein, Total 6.5 g/dL (5.8-8.1); Sodium 132 mmol/L (136-145)
[2020-07-14 19:24] LABS: Anisocytosis SLIGHT = 6-15 cells (100X) (0-5/hpf); Hypochromia SLIGHT = 6-15 cells (100X) (0-5/hpf); MDiff Complete? YES; Platelet Morphology Comment Appears Adequate; Polychromasia SLIGHT = 2-3 cells (100X) (0-2/hpf); Target Cells SLIGHT = 2-5 cells (100X) (0-1/hpf)
[2020-07-14 20:15] LABS: Lipase 9 U/L (8-78); Magnesium 1.8 mg/dL (1.6-2.6)
[2020-07-14 20:17] LABS: CK (CPK) Less than 9 U/L (29-168)
[2020-07-14] MEDS ORDERED: Piperacillin/Tazobactam 4.5 GM VIAL ONE (20:29)
[2020-07-14 20:33] LABS: Bacteria/HPF None Seen HPF (None Seen); Bilirubin 1+ (Negative); Blood, Urine Negative (Negative); Clarity Clear (Clear); Glucose, Urine (Dipstick) Normal (Negative); Ketone, Urine 20 mg/dL (Negative); Leukocyte 25 Leu/uL (Negative); Nitrite Negative (Negative); Protein, Urine (Dipstick) 20 mg/dL (Neg-Trace); RBC/HPF 0-3 HPF (0-3); Squamous Epithelial 0-3 HPF (0-3); WBC/HPF 0-3 HPF (0-3); pH, Urine 5.5 (5.0-9.0)
[2020-07-14] MEDS ORDERED: Vancomycin 1 GM/200 ML BAG ONE (22:22)
[2020-07-14] MEDS ORDERED: Norepinephrine 8 MG/0.9% NS 0 ML ONE (22:37)
[2020-07-15] MEDS ORDERED: Ondansetron PF 4 MG/2 ML Vial IVP PRN (01:30)
[2020-07-15] MEDS ORDERED: Ondansetron ODT 4 MG TAB SL PRN (01:30)
[2020-07-15] MEDS ORDERED: Sodium Chloride 0.9% 1,000 ML IV SCH ×2 (01:30→04:21)
[2020-07-15] MEDS: Acetaminophen 325 MG TAB PO PRN ×2 (04:00→08:58)
[2020-07-15] MEDS ORDERED: Acetaminophen 325 MG TAB PO PRN (04:44)
[2020-07-15] MEDS ORDERED: Sodium Chloride 0.9% 500 ML IV SCH (04:45)
[2020-07-15] MEDS: Sodium Chloride 0.9% 1,000 ML IV SCH ×4 (05:33→17:50)
[2020-07-15] MEDS: Potassium Chloride 20 MEQ in Premix Bag 1 BAG IVPB SCH ×2 (05:35→07:18)
[2020-07-15 05:39] LABS: ALT (SGPT) Less than 7 U/L (8-55); AST (SGOT) 8 U/L (5-34); Albumin 2.2 g/dL (3.4-4.8); Alkaline Phosphatase 80 U/L (40-110); Anion Gap 18 mmol/L (10-20); BUN (Urea Nitrogen) 34 mg/dL (9.8-20.1); Bilirubin, Total 0.5 mg/dL (0.2-1.2); Calc. Creatinine Clearance 58 mL/min (70-130); Calcium 7.6 mg/dL (7.8-10.44); Carbon Dioxide 17 mmol/L (23-31); Chloride 101 mmol/L (98-107); Globulin 3.2 g/dL (2.4-3.5); Glucose 73 mg/dL (80-115); Magnesium 1.8 mg/dL (1.6-2.6); Protein, Total 5.4 g/dL (5.8-8.1); Sodium 133 mmol/L (136-145)
[2020-07-15 05:57] LABS: Hemoglobin 8.8 g/dL (12.0-16.0); Mean Corpuscular HGB CONC 34.3 g/dL (32.0-36.0); Mean Corpuscular Hemoglobin 29.7 pg (27.0-31.0); Mean Corpuscular Volume 86.7 fL (78.0-98.0); Mean Platelet Volume 8.3 fL (7.4-10.4); Platelet Count 122 thou/uL (130-400); RBC Distribution Width 20.5 % (11.5-14.5); Red Blood Cell (RBC) Count 2.95 mill/uL (4.20-5.40); White Blood Cell (WBC) Count 9.3 thou/uL (4.8-10.8)
[2020-07-15 05:58] LABS: #Eosinphils 0.3 thou/uL (0.0-0.7); #Lymphocytes 0.7 thou/uL (1.20-3.40); #Monocytes 0.8 thou/uL (0.11-0.59); #Neutrophils 7.4 thou/uL (1.40-6.50); %Basophils 0.3 % (0.0-1.0); %Eosinophils 3.7 % (0.0-10.0); %Lymphocytes 7.9 % (21.0-51.0); %Monocytes 8.4 % (0.0-10.0); %Neutrophils 79.8 % (42.0-75.0); Anisocytosis SLIGHT = 6-15 cells (100X) (0-5/hpf); MDiff Complete? YES
[2020-07-15] MEDS: Cefepime 1 GM in Sodium Chloride 0.9% 100 ML IVPB SCH ×2 (06:45→17:49)
[2020-07-15] MEDS: Pantoprazole 40 MG VIAL IVP SCH (09:00)
[2020-07-15 09:05] LABS: SARS-CoV-2 PCR by NAA Not Detected (NotDetected)
[2020-07-15] MEDS: D5W-AA 4.25% with LYTES 1,000 ML IV SCH (19:03)
[2020-07-15] MEDS: VANCOMYCIN 1.25 GM/250 ML BAG 1.25 GM in Premix Bag 1 BAG IVPB SCH (20:06)
[2020-07-15] MEDS: HYDROcodone/Acetaminophen 5/325 mg Tablet PO PRN (20:06)
[2020-07-16 00:18] LABS: SARS-CoV-2 PCR by NAA Not Detected (NotDetected)
[2020-07-16] MEDS: Ondansetron PF 4 MG/2 ML Vial IVP PRN ×3 (01:38→18:30)
[2020-07-16 04:44] LABS: Hemoglobin 7.8 g/dL (12.0-16.0); Mean Corpuscular HGB CONC 34.3 g/dL (32.0-36.0); Mean Corpuscular Hemoglobin 29.7 pg (27.0-31.0); Mean Corpuscular Volume 86.6 fL (78.0-98.0); Mean Platelet Volume 8.5 fL (7.4-10.4); Platelet Count 120 thou/uL (130-400); RBC Distribution Width 20.9 % (11.5-14.5); Red Blood Cell (RBC) Count 2.62 mill/uL (4.20-5.40); White Blood Cell (WBC) Count 7.6 thou/uL (4.8-10.8)
[2020-07-16 04:53] LABS: Anion Gap 10 mmol/L (10-20); BUN (Urea Nitrogen) 24 mg/dL (9.8-20.1); Calc. Creatinine Clearance 72 mL/min (70-130); Calcium 7.5 mg/dL (7.8-10.44); Carbon Dioxide 21 mmol/L (23-31); Chloride 105 mmol/L (98-107); Glucose 110 mg/dL (80-115); Sodium 133 mmol/L (136-145)
[2020-07-16 04:56] LABS: Potassium 2.9 mmol/L (3.5-5.1)
[2020-07-16] MEDS ORDERED: Electrolyte Replacement Protocol FS PRN (05:30)
[2020-07-16] MEDS: Cefepime 1 GM in Sodium Chloride 0.9% 100 ML IVPB SCH ×2 (05:33→17:59)
[2020-07-16 06:15] LABS: #Eosinphils 0.1 thou/uL (0.0-0.7); #Lymphocytes 0.6 thou/uL (1.20-3.40); #Monocytes 0.6 thou/uL (0.11-0.59); #Neutrophils 6.3 thou/uL (1.40-6.50); %Basophils 0.2 % (0.0-1.0); %Eosinophils 1.5 % (0.0-10.0); %Lymphocytes 7.3 % (21.0-51.0); %Monocytes 7.9 % (0.0-10.0); %Neutrophils 83.2 % (42.0-75.0); Anisocytosis MODERATE=16-30 cells (100X) (0-5/hpf); MDiff Complete? YES
[2020-07-16] MEDS: D5W-AA 4.25% with LYTES 1,000 ML IV SCH ×2 (06:26→18:28)
[2020-07-16] MEDS: Potassium Chloride 20 MEQ in Premix Bag 1 BAG IVPB SCH ×4 (06:27→14:39)
[2020-07-16] MEDS ORDERED: Magnesium 2 GM/50 ML 2 GM in Premix Bag 1 BAG IVPB SCH (06:30)
[2020-07-16] MEDS: Pantoprazole 40 MG VIAL IVP SCH (07:50)
[2020-07-16] MEDS: Scopolamine 1.5 mg/72 hour Patch TD SCH (14:37)
[2020-07-16] MEDS: Metoclopramide HCl 10 MG/2 ML VIAL IVP SCH ×2 (14:37→22:34)
[2020-07-16] MEDS: HYDROcodone/Acetaminophen 5/325 mg Tablet PO PRN ×2 (18:07→23:03)
[2020-07-17] MEDS: VANCOMYCIN 1.25 GM/250 ML BAG 1.25 GM in Premix Bag 1 BAG IVPB SCH (01:01)
[2020-07-17] MEDS: Ondansetron PF 4 MG/2 ML Vial IVP PRN ×2 (01:17→08:03)
[2020-07-17 03:28] LABS: Vancomycin, Trough 12.7 ug/mL
[2020-07-17 05:17] LABS: Hemoglobin 7.7 g/dL (12.0-16.0); Mean Corpuscular HGB CONC 33.8 g/dL (32.0-36.0); Mean Corpuscular Hemoglobin 29.3 pg (27.0-31.0); Mean Corpuscular Volume 86.9 fL (78.0-98.0); Mean Platelet Volume 8.8 fL (7.4-10.4); Platelet Count 108 thou/uL (130-400); RBC Distribution Width 20.7 % (11.5-14.5); Red Blood Cell (RBC) Count 2.61 mill/uL (4.20-5.40); White Blood Cell (WBC) Count 5.2 thou/uL (4.8-10.8)
[2020-07-17 05:27] LABS: Anion Gap 15 mmol/L (10-20); BUN (Urea Nitrogen) 21 mg/dL (9.8-20.1); Calc. Creatinine Clearance 83 mL/min (70-130); Calcium 7.9 mg/dL (7.8-10.44); Carbon Dioxide 17 mmol/L (23-31); Chloride 106 mmol/L (98-107); Glucose 100 mg/dL (80-115); Potassium 4.1 mmol/L (3.5-5.1); Sodium 134 mmol/L (136-145)
[2020-07-17] MEDS: HYDROcodone/Acetaminophen 5/325 mg Tablet PO PRN ×3 (05:49→22:19)
[2020-07-17] MEDS: Metoclopramide HCl 10 MG/2 ML VIAL IVP SCH ×4 (05:49→22:56)
[2020-07-17] MEDS: Cefepime 1 GM in Sodium Chloride 0.9% 100 ML IVPB SCH ×2 (05:49→17:41)
[2020-07-17 06:20] LABS: Band 6 % (5-11); Lymphocytes 4 % (21-51); MDiff Complete? YES; Monocytes 8 % (0-10); Myelocyte 1 % (0-0); Neutrophil 81 % (42-75); Platelet Morphology Comment Appears Decreased
[2020-07-17] MEDS: D5W-AA 4.25% with LYTES 1,000 ML IV SCH ×2 (06:44→18:34)
[2020-07-17] MEDS: Pantoprazole 40 MG VIAL IVP SCH (08:03)
[2020-07-17 08:46] LABS: Potassium 3.9 mmol/L (3.5-5.1)
[2020-07-17] MEDS: Promethazine HCl 25 MG in Sodium Chloride 0.9% 50 ML IVPB PRN (12:29)
[2020-07-17] MEDS: Dronabinol 2.5 MG CAP PO SCH (17:39)
[2020-07-17 18:20] LABS: Bacteria/HPF None Seen HPF (None Seen); Bilirubin Negative (Negative); Blood, Urine Negative (Negative); Clarity Clear (Clear); Glucose, Urine (Dipstick) Normal (Negative); Ketone, Urine Negative (Negative); Leukocyte Negative Leu/uL (Negative); Nitrite Negative (Negative); Protein, Urine (Dipstick) Negative (Neg-Trace); RBC/HPF 0-3 HPF (0-3); Specific Gravity, Urine 1.013 (1.002-1.036); Squamous Epithelial 0-3 HPF (0-3); Urobilinogen Normal mg/dL (Less than 2); WBC/HPF 0-3 HPF (0-3)
[2020-07-17 18:22] LABS: Urine Culture Reflex No No
[2020-07-17] MEDS: Vancomycin HCl 1.25 GM in Sodium Chloride 0.9% 250 ML 250 ML IVPB SCH ×2 (22:19→22:56)
[2020-07-18] MEDS: Ondansetron PF 4 MG/2 ML Vial IVP PRN (03:51)
[2020-07-18 04:39] LABS: Anion Gap 11 mmol/L (10-20); BUN (Urea Nitrogen) 22 mg/dL (9.8-20.1); Calc. Creatinine Clearance 101 mL/min (70-130); Carbon Dioxide 20 mmol/L (23-31); Chloride 107 mmol/L (98-107); Glucose 94 mg/dL (80-115); Sodium 134 mmol/L (136-145)
[2020-07-18 05:33] LABS: Anisocytosis SLIGHT = 6-15 cells (100X) (0-5/hpf); Band 19 % (5-11); Eosinophils 1 % (0-10); Hemoglobin 7.4 g/dL (12.0-16.0); Lymphocytes 11 % (21-51); MDiff Complete? YES; Mean Corpuscular HGB CONC 32.9 g/dL (32.0-36.0); Mean Corpuscular Hemoglobin 28.7 pg (27.0-31.0); Mean Corpuscular Volume 87.1 fL (78.0-98.0); Metamyelocyte 1 % (0-0); Monocytes 10 % (0-10); Myelocyte 3 % (0-0); Neutrophil 55 % (42-75); Platelet Count 108 thou/uL (130-400); Platelet Morphology Comment Appears Decreased; RBC Distribution Width 21.1 % (11.5-14.5); Red Blood Cell (RBC) Count 2.58 mill/uL (4.20-5.40); White Blood Cell (WBC) Count 4.9 thou/uL (4.8-10.8)
[2020-07-18] MEDS: Cefepime 1 GM in Sodium Chloride 0.9% 100 ML IVPB SCH ×2 (05:38→17:39)
[2020-07-18] MEDS: HYDROcodone/Acetaminophen 5/325 mg Tablet PO PRN ×2 (05:38→15:40)
[2020-07-18] MEDS: D5W-AA 4.25% with LYTES 1,000 ML IV SCH ×2 (05:39→18:21)
[2020-07-18] MEDS: Metoclopramide HCl 10 MG/2 ML VIAL IVP SCH ×3 (05:39→21:43)
[2020-07-18] MEDS: Dronabinol 2.5 MG CAP PO SCH ×2 (08:48→16:25)
[2020-07-18] MEDS: Pantoprazole 40 MG VIAL IVP SCH (08:49)
[2020-07-18 10:45] VITALS: BMI 24.7
[2020-07-18 21:12] LABS: Vancomycin, Trough 18.8 ug/mL
[2020-07-18] MEDS: Vancomycin HCl 1.25 GM in Sodium Chloride 0.9% 250 ML 250 ML IVPB SCH (21:43)
[2020-07-19] MEDS: D5W-AA 4.25% with LYTES 1,000 ML IV SCH ×2 (05:18→17:51)
[2020-07-19] MEDS: Cefepime 1 GM in Sodium Chloride 0.9% 100 ML IVPB SCH (05:20)
[2020-07-19] MEDS: Metoclopramide HCl 10 MG/2 ML VIAL IVP SCH ×3 (05:31→21:42)
[2020-07-19 06:25] LABS: Anion Gap 12 mmol/L (10-20); BUN (Urea Nitrogen) 21 mg/dL (9.8-20.1); Calc. Creatinine Clearance 106 mL/min (70-130); Calcium 8.5 mg/dL (7.8-10.44); Carbon Dioxide 21 mmol/L (23-31); Chloride 104 mmol/L (98-107); Glucose 98 mg/dL (80-115); Potassium 3.9 mmol/L (3.5-5.1); Sodium 133 mmol/L (136-145)
[2020-07-19 06:33] LABS: Band 5 % (5-11); Eosinophils 1 % (0-10); Hemoglobin 7.5 g/dL (12.0-16.0); Lymphocytes 13 % (21-51); MDiff Complete? YES; Mean Corpuscular HGB CONC 34.1 g/dL (32.0-36.0); Mean Corpuscular Hemoglobin 29.7 pg (27.0-31.0); Mean Corpuscular Volume 87.1 fL (78.0-98.0); Mean Platelet Volume 8.5 fL (7.4-10.4); Monocytes 12 % (0-10); Myelocyte 5 % (0-0); Neutrophil 64 % (42-75); Platelet Count 102 thou/uL (130-400); Platelet Morphology Comment Appears Decreased; RBC Distribution Width 20.7 % (11.5-14.5); Red Blood Cell (RBC) Count 2.53 mill/uL (4.20-5.40); White Blood Cell (WBC) Count 3.6 thou/uL (4.8-10.8)
[2020-07-19] MEDS: Dronabinol 2.5 MG CAP PO SCH ×2 (09:48→17:09)
[2020-07-19] MEDS: Scopolamine 1.5 mg/72 hour Patch TD SCH (13:56)
[2020-07-19] MEDS: Ondansetron PF 4 MG/2 ML Vial IVP PRN (19:43)
[2020-07-20] MEDS: Metoclopramide HCl 10 MG/2 ML VIAL IVP SCH (05:34)
[2020-07-20] MEDS: D5W-AA 4.25% with LYTES 1,000 ML IV SCH ×2 (05:34→17:51)
[2020-07-20] MEDS ORDERED: Metoclopramide HCl 10 MG/2 ML VIAL IVP PRN (08:03)
[2020-07-20] MEDS: Dronabinol 2.5 MG CAP PO SCH ×2 (08:58→16:58)
[2020-07-20] MEDS: Ondansetron PF 4 MG/2 ML Vial IVP PRN (08:59)
[2020-07-20] MEDS ORDERED: Prochlorperazine Maleate 5 MG TAB PO PRN (17:23)
[2020-07-21] MEDS: D5W-AA 4.25% with LYTES 1,000 ML IV SCH ×2 (05:54→17:31)
[2020-07-21] MEDS: Dronabinol 2.5 MG CAP PO SCH ×2 (08:30→17:17)
[2020-07-22] MEDS: D5W-AA 4.25% with LYTES 1,000 ML IV SCH ×2 (05:51→18:20)
[2020-07-22 06:28] LABS: Hemoglobin 6.7 g/dL (12.0-16.0); Mean Corpuscular HGB CONC 34.6 g/dL (32.0-36.0); Mean Corpuscular Hemoglobin 29.8 pg (27.0-31.0); Mean Corpuscular Volume 86.1 fL (78.0-98.0); Mean Platelet Volume 9.2 fL (7.4-10.4); Platelet Count 80 thou/uL (130-400); Red Blood Cell (RBC) Count 2.24 mill/uL (4.20-5.40); White Blood Cell (WBC) Count 3.7 thou/uL (4.8-10.8)
[2020-07-22 06:40] LABS: Anion Gap 12 mmol/L (10-20); BUN (Urea Nitrogen) 22 mg/dL (9.8-20.1); Calc. Creatinine Clearance 113 mL/min (70-130); Calcium 8.7 mg/dL (7.8-10.44); Carbon Dioxide 26 mmol/L (23-31); Chloride 97 mmol/L (98-107); Glucose 94 mg/dL (80-115); Potassium 4.2 mmol/L (3.5-5.1); Sodium 131 mmol/L (136-145)
[2020-07-22 07:40] LABS: Anisocytosis SLIGHT = 6-15 cells (100X) (0-5/hpf); Band 4 % (5-11); Eosinophils 2 % (0-10); Lymphocytes 9 % (21-51); MDiff Complete? YES; Monocytes 6 % (0-10); Neutrophil 75 % (42-75); Platelet Morphology Comment Appears Decreased; Reactive Lymphocytes 4 % (0-10)
[2020-07-22] MEDS: Dronabinol 2.5 MG CAP PO SCH ×2 (09:18→19:12)
[2020-07-22] MEDS: Scopolamine 1.5 mg/72 hour Patch TD SCH (12:30)
[2020-07-22] MEDS: Ondansetron PF 4 MG/2 ML Vial IVP PRN (23:17)
[2020-07-23] MEDS: D5W-AA 4.25% with LYTES 1,000 ML IV SCH ×2 (05:55→19:56)
[2020-07-23] MEDS: Dronabinol 2.5 MG CAP PO SCH ×2 (09:26→15:26)
[2020-07-23] MEDS ORDERED: PROPOFOL 200 MG/20 ML VIAL ONE (09:58)
[2020-07-23] MEDS ORDERED: Lidocaine 1% PF 5 ML VIAL ONE (09:58)
[2020-07-23] MEDS ORDERED: Iopamidol-370 76% 500 ML 1 ML ONE (12:49)
[2020-07-23 13:03] LABS: #Eosinphils 0.1 thou/uL (0.0-0.7); #Lymphocytes 0.5 thou/uL (1.20-3.40); #Monocytes 0.1 thou/uL (0.11-0.59); #Neutrophils 2.8 thou/uL (1.40-6.50); %Basophils 0.1 % (0.0-1.0); %Eosinophils 2.7 % (0.0-10.0); %Lymphocytes 12.9 % (21.0-51.0); %Monocytes 3.8 % (0.0-10.0); %Neutrophils 80.6 % (42.0-75.0); Hemoglobin 7.8 g/dL (12.0-16.0); Mean Corpuscular HGB CONC 34.7 g/dL (32.0-36.0); Mean Corpuscular Hemoglobin 29.8 pg (27.0-31.0); Mean Platelet Volume 9.1 fL (7.4-10.4); Platelet Count 62 thou/uL (130-400); RBC Distribution Width 18.6 % (11.5-14.5); Red Blood Cell (RBC) Count 2.62 mill/uL (4.20-5.40); White Blood Cell (WBC) Count 3.5 thou/uL (4.8-10.8)
[2020-07-23 13:25] LABS: Anion Gap 11 mmol/L (10-20); BUN (Urea Nitrogen) 21 mg/dL (9.8-20.1); Calc. Creatinine Clearance 107 mL/min (70-130); Calcium 8.6 mg/dL (7.8-10.44); Carbon Dioxide 27 mmol/L (23-31); Chloride 94 mmol/L (98-107); Glucose 101 mg/dL (80-115); Potassium 3.9 mmol/L (3.5-5.1); Sodium 128 mmol/L (136-145)
[2020-07-23] MEDS: Promethazine HCl 25 MG in Sodium Chloride 0.9% 50 ML IVPB PRN (19:57)
[2020-07-24] MEDS: Ondansetron PF 4 MG/2 ML Vial IVP PRN (05:12)
[2020-07-24] MEDS: D5W-AA 4.25% with LYTES 1,000 ML IV SCH ×2 (05:29→19:20)
[2020-07-24 07:09] LABS: #Eosinphils 0.1 thou/uL (0.0-0.7); #Lymphocytes 0.4 thou/uL (1.20-3.40); #Monocytes 0.2 thou/uL (0.11-0.59); #Neutrophils 2.9 thou/uL (1.40-6.50); %Basophils 0.6 % (0.0-1.0); %Eosinophils 2.8 % (0.0-10.0); %Lymphocytes 10.6 % (21.0-51.0); %Monocytes 4.9 % (0.0-10.0); %Neutrophils 81.1 % (42.0-75.0); Hemoglobin 8.2 g/dL (12.0-16.0); Mean Corpuscular HGB CONC 35.6 g/dL (32.0-36.0); Mean Corpuscular Hemoglobin 30.8 pg (27.0-31.0); Mean Corpuscular Volume 86.3 fL (78.0-98.0); Mean Platelet Volume 9.7 fL (7.4-10.4); Platelet Count 58 thou/uL (130-400); RBC Distribution Width 18.6 % (11.5-14.5); Red Blood Cell (RBC) Count 2.68 mill/uL (4.20-5.40); White Blood Cell (WBC) Count 3.6 thou/uL (4.8-10.8)
[2020-07-24 07:27] LABS: Anion Gap 13 mmol/L (10-20); BUN (Urea Nitrogen) 22 mg/dL (9.8-20.1); Calc. Creatinine Clearance 107 mL/min (70-130); Calcium 9.2 mg/dL (7.8-10.44); Carbon Dioxide 27 mmol/L (23-31); Chloride 94 mmol/L (98-107); Glucose 99 mg/dL (80-115); Sodium 130 mmol/L (136-145)
[2020-07-24] MEDS: Dronabinol 2.5 MG CAP PO SCH ×2 (09:02→16:43)
[2020-07-24] MEDS: Amino Acids 4.25 %/Dextrose 5% 1,000 ML IV SCH (19:29)
[2020-07-25] MEDS: Amino Acids 4.25 %/Dextrose 5% 1,000 ML IV SCH (07:33)
[2020-07-25] MEDS: Dronabinol 2.5 MG CAP PO SCH ×2 (07:56→16:33)
[2020-07-25] MEDS: Scopolamine 1.5 mg/72 hour Patch TD SCH (11:27)
[2020-07-25] MEDS: D5W-AA 4.25% with LYTES 1,000 ML IV SCH ×2 (11:29→17:46)
[2020-07-25] MEDS: Ondansetron PF 4 MG/2 ML Vial IVP PRN (11:30)
[2020-07-25] MEDS: Metoclopramide HCl 10 MG/2 ML VIAL IVP SCH (21:24)
[2020-07-26 06:10] LABS: #Lymphocytes 0.4 thou/uL (1.20-3.40); #Monocytes 0.1 thou/uL (0.11-0.59); #Neutrophils 1.9 thou/uL (1.40-6.50); %Basophils 0.4 % (0.0-1.0); %Eosinophils 1.9 % (0.0-10.0); %Lymphocytes 15.8 % (21.0-51.0); %Monocytes 3.6 % (0.0-10.0); %Neutrophils 78.3 % (42.0-75.0); Hemoglobin 6.5 g/dL (12.0-16.0); Mean Corpuscular HGB CONC 35.5 g/dL (32.0-36.0); Mean Corpuscular Hemoglobin 30.5 pg (27.0-31.0); Mean Corpuscular Volume 85.9 fL (78.0-98.0); Mean Platelet Volume 10.9 fL (7.4-10.4); Platelet Count 33 thou/uL (130-400); Red Blood Cell (RBC) Count 2.14 mill/uL (4.20-5.40); White Blood Cell (WBC) Count 2.4 thou/uL (4.8-10.8)
[2020-07-26] MEDS: Metoclopramide HCl 10 MG/2 ML VIAL IVP SCH ×4 (06:13→20:41)
[2020-07-26] MEDS: D5W-AA 4.25% with LYTES 1,000 ML IV SCH ×2 (06:13→13:36)
[2020-07-26 07:26] LABS: Anion Gap 14 mmol/L (10-20); BUN (Urea Nitrogen) 24 mg/dL (9.8-20.1); Calc. Creatinine Clearance 103 mL/min (70-130); Calcium 8.4 mg/dL (7.8-10.44); Carbon Dioxide 27 mmol/L (23-31); Chloride 93 mmol/L (98-107); Glucose 98 mg/dL (80-115); Potassium 3.9 mmol/L (3.5-5.1); Sodium 130 mmol/L (136-145)
[2020-07-26] MEDS: Dronabinol 2.5 MG CAP PO SCH ×2 (08:46→16:30)
[2020-07-26] MEDS: Ondansetron PF 4 MG/2 ML Vial IVP PRN (08:47)
[2020-07-26] MEDS: Pantoprazole 40 MG VIAL IVP SCH (20:41)
[2020-07-27] MEDS: D5W-AA 4.25% with LYTES 1,000 ML IV SCH ×3 (02:37→23:35)
[2020-07-27] MEDS: Metoclopramide HCl 10 MG/2 ML VIAL IVP SCH ×4 (02:42→21:01)
[2020-07-27] MEDS: Pantoprazole 40 MG VIAL IVP SCH ×2 (10:26→20:46)
[2020-07-27] MEDS: Dronabinol 2.5 MG CAP PO SCH ×2 (10:26→16:38)
[2020-07-28] MEDS: Metoclopramide HCl 10 MG/2 ML VIAL IVP SCH ×4 (03:24→23:05)
[2020-07-28] MEDS: Dronabinol 2.5 MG CAP PO SCH ×2 (08:41→16:34)
[2020-07-28] MEDS: Pantoprazole 40 MG VIAL IVP SCH ×2 (08:42→20:12)
[2020-07-28] MEDS: Scopolamine 1.5 mg/72 hour Patch TD SCH (14:36)
[2020-07-28] MEDS: D5W-AA 4.25% with LYTES 1,000 ML IV SCH (15:07)
[2020-07-29] MEDS: D5W-AA 4.25% with LYTES 1,000 ML IV SCH ×2 (00:12→12:41)
[2020-07-29] MEDS: Metoclopramide HCl 10 MG/2 ML VIAL IVP SCH ×4 (03:23→21:56)
[2020-07-29 06:49] LABS: ALT (SGPT) Less than 7 U/L (8-55); AST (SGOT) 4 U/L (5-34); Alkaline Phosphatase 94 U/L (40-110); Anion Gap 18 mmol/L (10-20); BUN (Urea Nitrogen) 36 mg/dL (9.8-20.1); Bilirubin, Total 0.6 mg/dL (0.2-1.2); Calc. Creatinine Clearance 87 mL/min (70-130); Calcium 8.9 mg/dL (7.8-10.44); Carbon Dioxide 21 mmol/L (23-31); Chloride 96 mmol/L (98-107); Globulin 3.1 g/dL (2.4-3.5); Glucose 107 mg/dL (80-115); Potassium 4.3 mmol/L (3.5-5.1); Protein, Total 6.1 g/dL (5.8-8.1); Sodium 131 mmol/L (136-145)
[2020-07-29 07:11] LABS: #Lymphocytes 0.3 thou/uL (1.20-3.40); #Neutrophils 3.3 thou/uL (1.40-6.50); %Basophils 0.4 % (0.0-1.0); %Eosinophils 0.2 % (0.0-10.0); %Lymphocytes 7.3 % (21.0-51.0); %Monocytes 0.3 % (0.0-10.0); %Neutrophils 91.8 % (42.0-75.0); Hemoglobin 8.7 g/dL (12.0-16.0); Mean Corpuscular HGB CONC 34.9 g/dL (32.0-36.0); Mean Corpuscular Hemoglobin 29.8 pg (27.0-31.0); Mean Corpuscular Volume 85.3 fL (78.0-98.0); Mean Platelet Volume 13.4 fL (7.4-10.4); Platelet Count 17 thou/uL (130-400); RBC Distribution Width 16.6 % (11.5-14.5); Red Blood Cell (RBC) Count 2.94 mill/uL (4.20-5.40); White Blood Cell (WBC) Count 3.6 thou/uL (4.8-10.8)
[2020-07-29] MEDS: Dronabinol 2.5 MG CAP PO SCH ×3 (08:56→18:07)
[2020-07-29] MEDS: Pantoprazole 40 MG VIAL IVP SCH ×2 (08:56→20:12)
[2020-07-29] MEDS ORDERED: Ondansetron ODT 8 MG TAB SL SCH (15:00)
[2020-07-29] MEDS: Piperacillin/Tazobactam 3.375 GM in Sodium Chloride 0.9% 100 ML IVPB SCH ×2 (17:24→22:30)
[2020-07-29] MEDS: Ondansetron ODT 4 MG TAB PO SCH (20:11)
[2020-07-29] MEDS ORDERED: Amino Acids 4.25 %/Dextrose 5% 1,000 ML IV SCH (23:59)
[2020-07-30] MEDS: D5W-AA 4.25% with LYTES 1,000 ML IV SCH (00:20)
[2020-07-30] MEDS: Metoclopramide HCl 10 MG/2 ML VIAL IVP SCH ×4 (04:30→22:40)
[2020-07-30] MEDS: Piperacillin/Tazobactam 3.375 GM in Sodium Chloride 0.9% 100 ML IVPB SCH ×4 (04:30→22:40)
[2020-07-30] MEDS: Ondansetron ODT 4 MG TAB PO SCH ×3 (08:15→20:06)
[2020-07-30] MEDS: Pantoprazole 40 MG VIAL IVP SCH ×2 (08:15→20:06)
[2020-07-30 09:10] LABS: Hemoglobin 9.3 g/dL (12.0-16.0); Mean Corpuscular HGB CONC 34.5 g/dL (32.0-36.0); Mean Corpuscular Hemoglobin 29.6 pg (27.0-31.0); Mean Corpuscular Volume 85.9 fL (78.0-98.0); Mean Platelet Volume 13.3 fL (7.4-10.4); Platelet Count 14 thou/uL (130-400); RBC Distribution Width 16.5 % (11.5-14.5); Red Blood Cell (RBC) Count 3.15 mill/uL (4.20-5.40); White Blood Cell (WBC) Count 4.4 thou/uL (4.8-10.8)
[2020-07-30 09:23] LABS: Anion Gap 20 mmol/L (10-20); BUN (Urea Nitrogen) 39 mg/dL (9.8-20.1); Calc. Creatinine Clearance 83 mL/min (70-130); Calcium 8.7 mg/dL (7.8-10.44); Carbon Dioxide 18 mmol/L (23-31); Chloride 94 mmol/L (98-107); Glucose 112 mg/dL (80-115); Potassium 3.7 mmol/L (3.5-5.1); Sodium 128 mmol/L (136-145)
[2020-07-30] MEDS ORDERED: D5W-AA 4.25% with LYTES 1,000 ML IV SCH (10:00)
[2020-07-30] MEDS: Dronabinol 2.5 MG CAP PO SCH ×2 (11:17→17:34)
[2020-07-30] MEDS: Sodium Chloride 0.9% 1,000 ML IV SCH ×2 (12:37→20:07)
[2020-07-30] MEDS: Nystatin Powder 15 GM BOT TOP PRN (18:00)
[2020-07-30] MEDS: Morphine 4 MG/ML VIAL SLOW IVP PRN (18:03)
[2020-07-31] MEDS: Metoclopramide HCl 10 MG/2 ML VIAL IVP SCH ×4 (04:16→22:43)
[2020-07-31] MEDS: Piperacillin/Tazobactam 3.375 GM in Sodium Chloride 0.9% 100 ML IVPB SCH ×4 (04:16→22:43)
[2020-07-31] MEDS: Morphine 4 MG/ML VIAL SLOW IVP PRN ×2 (06:10→22:50)
[2020-07-31] MEDS: Sodium Chloride 0.9% 1,000 ML IV SCH (09:31)
[2020-07-31] MEDS: Dronabinol 2.5 MG CAP PO SCH ×2 (09:31→15:24)
[2020-07-31] MEDS: Ondansetron ODT 4 MG TAB PO SCH ×2 (09:31→15:23)
[2020-07-31] MEDS: Pantoprazole 40 MG VIAL IVP SCH ×2 (09:32→20:21)
[2020-07-31 09:49] LABS: #Lymphocytes 0.3 thou/uL (1.20-3.40); #Neutrophils 2.5 thou/uL (1.40-6.50); %Eosinophils 0.6 % (0.0-10.0); %Lymphocytes 9.4 % (21.0-51.0); %Monocytes 0.6 % (0.0-10.0); %Neutrophils 89.4 % (42.0-75.0); Hemoglobin 8.1 g/dL (12.0-16.0); Mean Corpuscular HGB CONC 34.4 g/dL (32.0-36.0); Mean Corpuscular Hemoglobin 29.4 pg (27.0-31.0); Mean Corpuscular Volume 85.6 fL (78.0-98.0); Mean Platelet Volume 10.9 fL (7.4-10.4); Platelet Count 27 thou/uL (130-400); RBC Distribution Width 16.2 % (11.5-14.5); Red Blood Cell (RBC) Count 2.75 mill/uL (4.20-5.40); White Blood Cell (WBC) Count 2.8 thou/uL (4.8-10.8)
[2020-07-31 10:06] LABS: Anion Gap 14 mmol/L (10-20); BUN (Urea Nitrogen) 29 mg/dL (9.8-20.1); Calc. Creatinine Clearance 86 mL/min (70-130); Calcium 7.6 mg/dL (7.8-10.44); Carbon Dioxide 22 mmol/L (23-31); Chloride 101 mmol/L (98-107); Glucose 84 mg/dL (80-115); Potassium 3.4 mmol/L (3.5-5.1); Sodium 134 mmol/L (136-145)
[2020-07-31] MEDS ORDERED: Potassium Chloride 20 MEQ TAB PO SCH (10:45)
[2020-07-31] MEDS: FLUoxetine HCl 20 MG CAP PO SCH (12:16)
[2020-07-31] MEDS: Scopolamine 1.5 mg/72 hour Patch TD SCH (12:30)
[2020-07-31] MEDS ORDERED: Potassium Chloride 20 MEQ in Premix Bag 1 BAG IVPB SCH (16:30)
[2020-07-31] MEDS: Nystatin Powder 15 GM BOT TOP PRN ×2 (17:39→22:50)
[2020-07-31] MEDS: Ondansetron PF 4 MG/2 ML Vial IVP SCH (20:22)
[2020-08-01] MEDS: Piperacillin/Tazobactam 3.375 GM in Sodium Chloride 0.9% 100 ML IVPB SCH ×4 (04:31→23:16)
[2020-08-01] MEDS: Metoclopramide HCl 10 MG/2 ML VIAL IVP SCH ×4 (04:31→20:59)
[2020-08-01] MEDS: Ondansetron PF 4 MG/2 ML Vial IVP SCH ×3 (05:57→20:59)
[2020-08-01] MEDS: FLUoxetine HCl 20 MG CAP PO SCH (09:48)
[2020-08-01] MEDS: BIOTENE MOUTH SPRAY 44.3 ML MM SCH (09:48)
[2020-08-01] MEDS: Pantoprazole 40 MG VIAL IVP SCH ×2 (09:49→20:59)
[2020-08-01] MEDS: Dronabinol 2.5 MG CAP PO SCH ×2 (09:53→16:46)
[2020-08-01] MEDS ORDERED: Piperacillin/Tazobactam 3.375 GM VIAL ONE (11:59)
[2020-08-01 15:06] LABS: Hemoglobin 8.3 g/dL (12.0-16.0); Mean Corpuscular HGB CONC 34.7 g/dL (32.0-36.0); Mean Corpuscular Hemoglobin 29.4 pg (27.0-31.0); Mean Corpuscular Volume 84.6 fL (78.0-98.0); Mean Platelet Volume 13.6 fL (7.4-10.4); Platelet Count 16 thou/uL (130-400); RBC Distribution Width 16.4 % (11.5-14.5); Red Blood Cell (RBC) Count 2.82 mill/uL (4.20-5.40); White Blood Cell (WBC) Count 2.4 thou/uL (4.8-10.8)
[2020-08-01 15:18] LABS: Anion Gap 13 mmol/L (10-20); BUN (Urea Nitrogen) 22 mg/dL (9.8-20.1); Calc. Creatinine Clearance 94 mL/min (70-130); Calcium 7.5 mg/dL (7.8-10.44); Carbon Dioxide 20 mmol/L (23-31); Chloride 103 mmol/L (98-107); Glucose 119 mg/dL (80-115); Potassium 3.3 mmol/L (3.5-5.1); Sodium 133 mmol/L (136-145)
[2020-08-01] MEDS ORDERED: Potassium Chloride 20 MEQ TAB PO SCH (15:30)
[2020-08-01] MEDS ORDERED: Potassium Bicarbonate/Cit Ac 20 MEQ TAB PO SCH (16:45)
[2020-08-02] MEDS: Metoclopramide HCl 10 MG/2 ML VIAL IVP SCH ×4 (04:11→20:28)
[2020-08-02] MEDS: Ondansetron PF 4 MG/2 ML Vial IVP SCH ×2 (04:12→13:02)
[2020-08-02] MEDS: Piperacillin/Tazobactam 3.375 GM in Sodium Chloride 0.9% 100 ML IVPB SCH (04:12)
[2020-08-02 09:18] LABS: Hemoglobin 8.1 g/dL (12.0-16.0); Mean Corpuscular HGB CONC 34.5 g/dL (32.0-36.0); Mean Corpuscular Hemoglobin 29.1 pg (27.0-31.0); Mean Corpuscular Volume 84.3 fL (78.0-98.0); Platelet Count 15 thou/uL (130-400); RBC Distribution Width 16.2 % (11.5-14.5); Red Blood Cell (RBC) Count 2.77 mill/uL (4.20-5.40); White Blood Cell (WBC) Count 1.7 thou/uL (4.8-10.8)
[2020-08-02] MEDS: BIOTENE MOUTH SPRAY 44.3 ML MM SCH (09:19)
[2020-08-02] MEDS: Dronabinol 2.5 MG CAP PO SCH ×2 (09:20→19:09)
[2020-08-02] MEDS: Pantoprazole 40 MG VIAL IVP SCH (09:25)
[2020-08-02] MEDS: Potassium Chloride 20 MEQ TAB PO SCH ×2 (09:25→10:56)
[2020-08-02 09:33] LABS: Anion Gap 13 mmol/L (10-20); BUN (Urea Nitrogen) 18 mg/dL (9.8-20.1); Calc. Creatinine Clearance 93 mL/min (70-130); Calcium 7.2 mg/dL (7.8-10.44); Carbon Dioxide 23 mmol/L (23-31); Chloride 103 mmol/L (98-107); Glucose 94 mg/dL (80-115); Sodium 136 mmol/L (136-145)
[2020-08-02 09:40] LABS: Potassium 2.8 mmol/L (3.5-5.1)
[2020-08-02] MEDS: Potassium Bicarbonate/Cit Ac 20 MEQ TAB PO SCH ×2 (10:05→19:59)
[2020-08-02] MEDS ORDERED: Potassium Bicarbonate/Cit Ac 20 MEQ TAB PO SCH (10:15)
[2020-08-02] MEDS: FLUoxetine HCl 20 MG CAP PO SCH (10:45)
[2020-08-02] MEDS ORDERED: Potassium Chloride 10 MEQ in Premix Bag 1 BAG IVPB SCH ×2 (12:45→14:00)
[2020-08-02] MEDS: Megestrol Acetate 40 MG TAB PO SCH (13:10)
[2020-08-02] MEDS: Morphine 4 MG/ML VIAL SLOW IVP PRN (13:42)
[2020-08-02] MEDS: Potassium Chloride 20 MEQ in Premix Bag 1 BAG IVPB SCH ×4 (13:57→20:27)
[2020-08-02] MEDS ORDERED: Pancrelipase DR 12,000 1 CAP FS PRN (18:45)
[2020-08-02] MEDS ORDERED: Sodium Bicarbonate Tab 325 MG TAB PER TUBE PRN (18:45)
[2020-08-02] MEDS: Ondansetron ODT 8 MG TAB SL SCH (20:27)
[2020-08-02] MEDS: Amoxicillin/Potassium Clav 875 MG TAB PO SCH (20:28)
[2020-08-03] MEDS: Metoclopramide HCl 10 MG/2 ML VIAL IVP SCH ×4 (05:03→20:42)
[2020-08-03 07:19] LABS: Hemoglobin 7.6 g/dL (12.0-16.0); Mean Corpuscular HGB CONC 34.5 g/dL (32.0-36.0); Mean Corpuscular Hemoglobin 29.3 pg (27.0-31.0); Mean Corpuscular Volume 84.9 fL (78.0-98.0); Mean Platelet Volume 14.4 fL (7.4-10.4); Platelet Count 14 thou/uL (130-400); RBC Distribution Width 16.3 % (11.5-14.5); White Blood Cell (WBC) Count 1.8 thou/uL (4.8-10.8)
[2020-08-03 07:26] LABS: Anion Gap 11 mmol/L (10-20); BUN (Urea Nitrogen) 21 mg/dL (9.8-20.1); Calc. Creatinine Clearance 93 mL/min (70-130); Calcium 7.4 mg/dL (7.8-10.44); Carbon Dioxide 23 mmol/L (23-31); Chloride 105 mmol/L (98-107); Glucose 98 mg/dL (80-115); Potassium 4.1 mmol/L (3.5-5.1); Sodium 135 mmol/L (136-145)
[2020-08-03] MEDS: Nystatin Powder 15 GM BOT TOP PRN (09:02)
[2020-08-03] MEDS: Megestrol Acetate 40 MG TAB PO SCH (09:02)
[2020-08-03] MEDS: BIOTENE MOUTH SPRAY 44.3 ML MM SCH (09:02)
[2020-08-03] MEDS: Amoxicillin/Potassium Clav 875 MG TAB PO SCH (09:02)
[2020-08-03] MEDS: FLUoxetine HCl 20 MG CAP PO SCH (09:02)
[2020-08-03] MEDS: Dronabinol 2.5 MG CAP PO SCH ×2 (09:02→15:42)
[2020-08-03] MEDS: Ondansetron ODT 8 MG TAB SL SCH ×3 (09:02→20:44)
[2020-08-03] MEDS: Scopolamine 1.5 mg/72 hour Patch TD SCH (11:32)
[2020-08-03] MEDS: Morphine 4 MG/ML VIAL SLOW IVP PRN (23:09)
[2020-08-04] MEDS: Metoclopramide HCl 10 MG/2 ML VIAL IVP SCH ×3 (03:32→16:39)
[2020-08-04] MEDS: Megestrol Acetate 40 MG TAB PO SCH (08:11)
[2020-08-04] MEDS: FLUoxetine HCl 20 MG CAP PO SCH (08:12)
[2020-08-04] MEDS: Dronabinol 2.5 MG CAP PO SCH ×2 (08:12→16:38)
[2020-08-04] MEDS: Ondansetron ODT 8 MG TAB SL SCH ×3 (08:12→20:05)
[2020-08-04] MEDS: BIOTENE MOUTH SPRAY 44.3 ML MM SCH (08:13)
[2020-08-04] MEDS ORDERED: Ondansetron PF 4 MG/2 ML Vial IVP PRN ×2 (09:40→09:54)
[2020-08-04 09:42] LABS: Hemoglobin 6.9 g/dL (12.0-16.0); Mean Corpuscular HGB CONC 35.1 g/dL (32.0-36.0); Mean Corpuscular Hemoglobin 29.9 pg (27.0-31.0); Mean Corpuscular Volume 85.2 fL (78.0-98.0); Mean Platelet Volume 10.1 fL (7.4-10.4); Platelet Count 37 thou/uL (130-400); RBC Distribution Width 16.2 % (11.5-14.5); White Blood Cell (WBC) Count 1.7 thou/uL (4.8-10.8)
[2020-08-04 10:01] LABS: Anion Gap 12 mmol/L (10-20); BUN (Urea Nitrogen) 14 mg/dL (9.8-20.1); Calc. Creatinine Clearance 104 mL/min (70-130); Calcium 7.5 mg/dL (7.8-10.44); Carbon Dioxide 23 mmol/L (23-31); Chloride 105 mmol/L (98-107); Glucose 92 mg/dL (80-115); Sodium 136 mmol/L (136-145)
[2020-08-04 16:18] LABS: Heparin-Induced Ab (HITA) 0.056 OD (0.000-0.400)
[2020-08-04] MEDS: Morphine 4 MG/ML VIAL SLOW IVP PRN (20:06)
[2020-08-05] MEDS: Ondansetron ODT 8 MG TAB SL SCH ×3 (07:31→20:15)
[2020-08-05] MEDS: FLUoxetine HCl 20 MG CAP PO SCH (07:31)
[2020-08-05] MEDS: Megestrol Acetate 40 MG TAB PO SCH (07:32)
[2020-08-05] MEDS: BIOTENE MOUTH SPRAY 44.3 ML MM SCH (07:32)
[2020-08-05] MEDS: Dronabinol 2.5 MG CAP PO SCH ×2 (10:14→18:36)
[2020-08-06] MEDS: FLUoxetine HCl 20 MG CAP PO SCH (08:01)
[2020-08-06] MEDS: BIOTENE MOUTH SPRAY 44.3 ML MM SCH (08:01)
[2020-08-06] MEDS: Ondansetron ODT 8 MG TAB SL SCH ×3 (08:01→20:53)
[2020-08-06] MEDS: Megestrol Acetate 40 MG TAB PO SCH (08:01)
[2020-08-06 08:31] LABS: ALT (SGPT) 7 U/L (8-55); AST (SGOT) 5 U/L (5-34); Albumin 3.2 g/dL (3.4-4.8); Alkaline Phosphatase 100 U/L (40-110); Anion Gap 11 mmol/L (10-20); BUN (Urea Nitrogen) 11 mg/dL (9.8-20.1); Bilirubin, Total 0.8 mg/dL (0.2-1.2); Calc. Creatinine Clearance 79 mL/min (70-130); Calcium 8.9 mg/dL (7.8-10.44); Carbon Dioxide 28 mmol/L (23-31); Chloride 102 mmol/L (98-107); Globulin 2.8 g/dL (2.4-3.5); Glucose 106 mg/dL (80-115); Potassium 2.9 mmol/L (3.5-5.1); Sodium 138 mmol/L (136-145)
[2020-08-06] MEDS: Dronabinol 2.5 MG CAP PO SCH ×2 (08:38→16:51)
[2020-08-06 08:57] LABS: Band 12 % (5-11); Hemoglobin 8.8 g/dL (12.0-16.0); Lymphocytes 8 % (21-51); MDiff Complete? YES; Mean Corpuscular HGB CONC 34.8 g/dL (32.0-36.0); Mean Corpuscular Hemoglobin 30.2 pg (27.0-31.0); Mean Corpuscular Volume 86.7 fL (78.0-98.0); Mean Platelet Volume 11.8 fL (7.4-10.4); Metamyelocyte 5 % (0-0); Monocytes 10 % (0-10); Neutrophil 65 % (42-75); Platelet Count 36 thou/uL (130-400); Platelet Morphology Comment Appears Decreased; RBC Distribution Width 15.9 % (11.5-14.5); White Blood Cell (WBC) Count 4.4 thou/uL (4.8-10.8)
[2020-08-06] MEDS ORDERED: Potassium Chloride 20 MEQ TAB PO SCH (09:00)
[2020-08-06] MEDS: Potassium Chloride 20 MEQ TAB PO SCH ×3 (09:33→20:54)
[2020-08-06] MEDS: Scopolamine 1.5 mg/72 hour Patch TD SCH (12:38)
[2020-08-07] MEDS: Potassium Chloride 20 MEQ TAB PO SCH (02:29)
[2020-08-07] MEDS: Nystatin Powder 15 GM BOT TOP PRN (02:51)
[2020-08-07] MEDS: Morphine 4 MG/ML VIAL SLOW IVP PRN ×3 (03:01→21:00)
[2020-08-07 06:11] LABS: Anion Gap 11 mmol/L (10-20); BUN (Urea Nitrogen) 12 mg/dL (9.8-20.1); Calc. Creatinine Clearance 68 mL/min (70-130); Calcium 8.9 mg/dL (7.8-10.44); Carbon Dioxide 26 mmol/L (23-31); Chloride 106 mmol/L (98-107); Glucose 91 mg/dL (80-115); Potassium 4.4 mmol/L (3.5-5.1); Sodium 139 mmol/L (136-145)
[2020-08-07] MEDS: Ondansetron ODT 8 MG TAB SL SCH ×3 (09:14→20:18)
[2020-08-07] MEDS: FLUoxetine HCl 20 MG CAP PO SCH (09:14)
[2020-08-07] MEDS: Megestrol Acetate 40 MG TAB PO SCH (09:14)
[2020-08-07] MEDS: BIOTENE MOUTH SPRAY 44.3 ML MM SCH (09:15)
[2020-08-07] MEDS: Dronabinol 2.5 MG CAP PO SCH ×2 (11:04→16:45)
[2020-08-08 07:42] LABS: Hemoglobin 8.1 g/dL (12.0-16.0); Mean Corpuscular HGB CONC 34.8 g/dL (32.0-36.0); Mean Corpuscular Hemoglobin 30.5 pg (27.0-31.0); Mean Corpuscular Volume 87.8 fL (78.0-98.0); Mean Platelet Volume 10.8 fL (7.4-10.4); Platelet Count 67 thou/uL (130-400); RBC Distribution Width 16.6 % (11.5-14.5); Red Blood Cell (RBC) Count 2.66 mill/uL (4.20-5.40); White Blood Cell (WBC) Count 6.9 thou/uL (4.8-10.8)
[2020-08-08 07:48] LABS: ALT (SGPT) Less than 7 U/L (8-55); AST (SGOT) 6 U/L (5-34); Alkaline Phosphatase 91 U/L (40-110); Anion Gap 12 mmol/L (10-20); BUN (Urea Nitrogen) 14 mg/dL (9.8-20.1); Bilirubin, Total 0.7 mg/dL (0.2-1.2); Calc. Creatinine Clearance 61 mL/min (70-130); Calcium 8.7 mg/dL (7.8-10.44); Carbon Dioxide 25 mmol/L (23-31); Chloride 104 mmol/L (98-107); Globulin 2.7 g/dL (2.4-3.5); Glucose 93 mg/dL (80-115); Potassium 3.9 mmol/L (3.5-5.1); Protein, Total 5.7 g/dL (5.8-8.1); Sodium 137 mmol/L (136-145)
[2020-08-08] MEDS: FLUoxetine HCl 20 MG CAP PO SCH (08:58)
[2020-08-08] MEDS: BIOTENE MOUTH SPRAY 44.3 ML MM SCH (08:58)
[2020-08-08] MEDS: Ondansetron ODT 8 MG TAB SL SCH ×2 (08:58→16:25)
[2020-08-08] MEDS: Megestrol Acetate 40 MG TAB PO SCH (08:58)
[2020-08-08 09:13] LABS: Band 14 % (5-11); Eosinophils 1 % (0-10); Lymphocytes 6 % (21-51); MDiff Complete? YES; Metamyelocyte 9 % (0-0); Monocytes 13 % (0-10); Myelocyte 4 % (0-0); Neutrophil 53 % (42-75); Nucleated RBC 1 % (0); Platelet Morphology Comment Appears Decreased; Polychromasia SLIGHT = 2-3 cells (100X) (0-2/hpf); Vacuoles SLIGHT
[2020-08-08] MEDS: Dronabinol 2.5 MG CAP PO SCH ×2 (11:57→16:25)
[2020-08-08 16:27] VITALS: BP 122/66; TEMP 97.9
[2020-08-08] MEDS: Morphine 4 MG/ML VIAL SLOW IVP PRN (17:58)
== END 2020-08-08 19:30 | disposition hospice, home (50) | DRG 871 ==
LOC: ERS 18:25 → SJJU 23:20 → 2NO 07-15 07:14 → T4-B 07-18 20:24
PROVIDERS: ADMIT Internal Medicine; ATTEND Internal Medicine
PROC: 0DB78ZX Excision of Stomach, Pylorus, Via Natural or Artificial Opening Endoscopic, Diagnostic (ICD-10-PCS; principal; 2020-07-23)
DX: A41.9 Sepsis, unspecified organism (principal); D61.810 Antineoplastic chemotherapy induced pancytopenia; E44.0 Moderate protein-calorie malnutrition; C21.0 Malignant neoplasm of anus, unspecified; N17.9 Acute kidney failure, unspecified; R65.20 Severe sepsis without septic shock; F39 Unspecified mood [affective] disorder; J44.9 Chronic obstructive pulmonary disease, unspecified; T45.1X5A Adverse effect of antineoplastic and immunosuppressive drugs, initial encounter; K80.20 Calculus of gallbladder without cholecystitis without obstruction; K29.70 Gastritis, unspecified, without bleeding; R13.10 Dysphagia, unspecified
CPT/HCPCS: 36415; 36416; 36430; 51701; 70470; 71045; 74018; 74177; 80048; 80053; 80202; 81001; 81003; 81015; 82533; 82550; 83605; 83690; 83735; 83880; 84145; 84484; 85014; 85018; 85025; 85027; 86850; 86900; 86901; 87040; 87086; 87149; 88305; 88342; 93005; 94640; 96365; 96367; 96375; C9113; J0692; J2270; J2405; J2543; J2550; J2704; J2765; J3370; J3475; J3480; J3490; J7050; J7620; P9016; P9035; Q0162; Q0164; Q0167; Q9967; S0179; U0003; U0005